=== PATIENT | male | born 1995 | race African-American/Black ===

== ENCOUNTER 2023-10-01 17:39 | Emergency (ER) | payer OTHER, SELFPAY ==
[2023-10-01 17:52] VITALS: BP 129/98; PULSE 102; RESP 20; TEMP 38.1; O2SAT 98; BMI 32.5
[2023-10-01 18:16] LABS: Bilirubin Urine NEGATIVE (NEGATIVE); Blood Urine NEGATIVE (NEGATIVE); Clarity Urine CLEAR (CLEAR); Color Urine LT. YELLOW (YELLOW); Glucose Urine UA NEGATIVE (NEGATIVE); Ketones Urine NEGATIVE (NEGATIVE); Leukocyte Esterase Urine NEGATIVE (NEGATIVE); Nitrite Urine NEGATIVE (NEGATIVE); Protein Urine NEGATIVE (NEG/TRACE); Specific Gravity Urine 1.025 (1.005-1.025); Urobilinogen Urine 0.2 EU/dL (0.2-1.0)
[2023-10-01 18:17] LABS: Urine Microscopic Indicated NO
[2023-10-01 18:19] LABS: Internal Control Within Normal Limits; Strep A Antigen Screen Negative
[2023-10-01 18:25] LABS: SARS-CoV-2 Ag NEGATIVE (NEGATIVE)
[2023-10-01 19:55] VITALS: BP 149/88; PULSE 91; RESP 16; TEMP 37.8; O2SAT 98
--- NOTE | 2023-10-01 19:58 | CT_ITS ---
The [address] [address] Patient Name: HILTON MARTEL MRN: [id number] date: 1995 Sex: M Assigned Patient Location: ER Current Patient Location: Accession/Order Number: [id number] Exam Date: 10/01/2023 20:21 Report Date: 10/01/2023 21:07 At the request of: ANA CRISTINA WOODSON Procedure: CT abdomen pelvis wo con EXAMINATION: CT ABDOMEN AND PELVIS WITHOUT IV CONTRAST CLINICAL HISTORY: Right flank pain, Bodyaches and chills TECHNIQUE: Non-IV contrast imaging of the abdomen and pelvis was performed using standard technique, scanning from just above the dome of the diaphragm to the symphysis pubis. Unenhanced imaging is limited for the evaluation of some intra-abdominal and pelvic pathology. All CT scans at this facility use dose modulation, iterative reconstruction, and/or weight based dosing when appropriate to reduce radiation dose to as low as reasonably achievable. Contrast: IV: None COMPARISON: None. RESULT: Abdomen / Pelvis: Liver: Unremarkable. Biliary: The gallbladder is unremarkable. Spleen: No splenomegaly. Pancreas: Unremarkable. Adrenals: Normal. Kidneys: No calculus, hydronephrosis or finding to suggest a cyst or mass in the unenhanced kidney. GI Tract: No bowel dilation. Normal appendix. No diverticulosis. Lymph Nodes: No lymphadenopathy. Mesentery/peritoneum: No ascites. Retroperitoneum: No mass. Vasculature: No abdominal aortic or iliac artery aneurysm. Pelvis: No mass or ascites. Urinary bladder is unremarkable. Bones/Soft Tissues: Small focus of gas within the right iliacus (series 3 image 102). No soft tissue stranding or drainable fluid collection. Lower thorax: Unremarkable. CT/CT abdomen pelvis wo con IMPRESSION: No acute findings in the abdomen and pelvis. Electronically authenticated by: JOSE MARIA LYLE Date: 10/01/2023 21:07
--- NOTE | 2023-10-01 20:07 | ED.GENADUL1 ---
HPI - General Adult General Chief complaint: Upper Respiratory Infection Stated complaint: Upper Respiratory Infection Time Seen by Provider: 10/01/23 19:53 Source: patient Mode of arrival: walk-in Limitations: no limitations History of Present Illness HPI narrative: 28 year old male presents to the ED for sinus congestion/cough, body aches, fatigue, sore throat. Onset was 2-3 days ago. He presented febrile. Reports concern for Covid-19. Also reports penile itching with urination and penile discharge. Reports suprapubic discomfort, intermittent right flank pain. He is concerned about a UTI and kidney stones. Denies penile lesions, erythema. Related Data Home Medications Medication Instructions Recorded Confirmed No Known Home Medications 10/01/23 10/01/23 Allergies Allergy/AdvReac Type Severity Reaction Status Date / Time No Known Drug Allergies Allergy Verified 10/01/23 17:51 Review of Systems ROS Constitutional Reports: fever and chills Ears, nose, mouth, and throat Reports: throat pain; Denies: neck pain or throat swelling Cardiovascular Denies: chest pain Respiratory Reports: cough; Denies: shortness of breath or wheezing Gastrointestinal Reports: abdominal pain and nausea; Denies: vomiting or diarrhea Genitourinary Reports: painful urination, genital pain and penile discharge; Denies: urinary frequency, urinary urgency, blood in urine, genital lesion, testicular pain, scrotal swelling or difficulty urinating Musculoskeletal Reports: back pain; Denies: neck pain Integumentary/Breast Denies: rash Neurological Reports: headache; Denies: numbness in extremities, weakness in extremities or dizziness PFSH PFSH Social History Smoking status: Heavy tobacco smoker Exam Constitutional Vital Signs, click to edit/add: Last Vital Signs Temp 100.1 F 10/01/23 19:55 Pulse 91 H 10/01/23 19:55 Resp 16 10/01/23 19:55 BP 149/88 H 10/01/23 19:55 Pulse Ox 98 10/01/23 19:55 Common normals: no apparent distress and oriented x3 General appearance: cooperative HENMT Face and sinus: normal facial exam Nose: external nose normal External ear: external ears normal Mouth: oral and palatal mucosa normal, lip normal and tongue normal; no drooling Throat: posterior oropharynx normal and uvula midline Eye Common normals: conjunctivae normal and no scleral icterus Neck & C-Spine Common normals: supple Chest Common normals: inspection of chest normal Chest: symmetrical chest wall rise Respiratory Common normals: normal respiratory effort Effort & inspection: able to speak in complete sentences and symmetric chest movement Auscultation: clear to auscultation bilaterally Cardio Common normals: regular rate and regular rhythm GI Common normals: Normal to inspection, nondistended, normoactive bowel sounds present and soft to palpation Palpation: tender Details: suprapubic Neuro Common normals: oriented x3 and CN's II-XII intact bilaterally Sensorium/orientation: awake Speech: speech normal Gait (neuro): normal gait Course Vital Signs Vital signs: Vital Signs Temperature 100.5 F H 10/01/23 17:52 Pulse Rate 102 H 10/01/23 17:52 Respiratory Rate 20 10/01/23 17:52 Blood Pressure 129/98 H 10/01/23 17:52 Pulse Oximetry 98 10/01/23 17:52 Temperature 100.1 F 10/01/23 19:55 Pulse Rate 91 H 10/01/23 19:55 Respiratory Rate 16 10/01/23 19:55 Blood Pressure 149/88 H 10/01/23 19:55 Pulse Oximetry 98 10/01/23 19:55 Medical Decision Making MDM Narrative Medical decision making narrative: He tested negative for Covid-19, influenza, and strep. Imaging was negative for acute findings. Urinalysis was unremarkable. Uriprobes were pending. Follow up with pcp for a recheck, further evaluation and treatment. Return precautions were discussed. Motrin and/or Tylenol as directed for pain. Medical Records Medical records reviewed: Yes I reviewed the patient's medical records Lab Data Lab results reviewed: Yes I reviewed the patient's lab results Labs: Lab Results 10/01/23 10/01/23 Range/Units 18:06 20:15 Urine Color Lt. yellow (YELLOW) Urine Clarity Clear (CLEAR) Urine pH 6.0 (5.0-9.0) Ur Specific [place] 1.025 (1.005-1.025) Urine Protein Negative (NEG/TRACE) mg/dL Urine Glucose (UA) Negative (NEGATIVE) mg/dL Urine Ketones Negative (NEGATIVE) mg/dL Urine Occult Blood Negative (NEGATIVE) Urine Nitrite Negative (NEGATIVE) Urine Bilirubin Negative (NEGATIVE) Urine Urobilinogen 0.2 (0.2-1.0) EU/dL Ur Leukocyte Esterase Negative (NEGATIVE) SARS-CoV-2 (PCR) Negative (NEGATIVE) Influenza Type A Ag Negative Influenza Type B Ag Negative Streptococcus Screen Negative Imaging Data CT scan - abdomen: Attestation: I have reviewed the pertinent imaging results. Radiologist's impression: Procedure: CT abdomen pelvis wo con EXAMINATION: CT ABDOMEN AND PELVIS WITHOUT IV CONTRAST CLINICAL HISTORY: Right flank pain, Bodyaches and chills TECHNIQUE: Non-IV contrast imaging of the abdomen and pelvis was performed using standard technique, scanning from just above the dome of the diaphragm to the symphysis pubis. Unenhanced imaging is limited for the evaluation of some intra-abdominal and pelvic pathology. All CT scans at this facility use dose modulation, iterative reconstruction, and/or weight based dosing when appropriate to reduce radiation dose to as low as reasonably achievable. Contrast: IV: None COMPARISON: None. RESULT: Abdomen / Pelvis: Liver: Unremarkable. Biliary: The gallbladder is unremarkable. Spleen: No splenomegaly. Pancreas: Unremarkable. Adrenals: Normal. Kidneys: No calculus, hydronephrosis or finding to suggest a cyst or mass in the unenhanced kidney. GI Tract: No bowel dilation. Normal appendix. No diverticulosis. Lymph Nodes: No lymphadenopathy. Mesentery/peritoneum: No ascites. Retroperitoneum: No mass. Vasculature: No abdominal aortic or iliac artery aneurysm. Pelvis: No mass or ascites. Urinary bladder is unremarkable. Bones/Soft Tissues: Small focus of gas within the right iliacus (series 3 image 102). No soft tissue stranding or drainable fluid collection. Lower thorax: Unremarkable. CT/CT abdomen pelvis wo con IMPRESSION: No acute findings in the abdomen and pelvis. Electronically authenticated by: JOSE MARIA LLYE Date: 10/01/2023 21:07 Discharge Plan Discharge Chief Complaint: Upper Respiratory Infection Clinical Impression: Discharge from penis, Upper respiratory infection, viral Patient Disposition: Home, Self-Care Time of Disposition Decision: 21:16 Condition: Good Mode of Transportation: Private Vehicle Prescriptions / Home Meds: No Action No Known Home Medications Instructions: Nonspecific Urethritis in Men (ED), Upper Respiratory Infection (ED), Viral Syndrome (ED) Stand Alone Forms: Portal Instructions Referrals: Physician,Non-Staff, MD [Primary Care Provider] - As soon as possible Discharge Date/Time: 10/01/23 21:32
[2023-10-01] MEDS: IBUPROFEN 400 MG TABLET 800 MG PO (20:13)
[2023-10-01] MEDS: ACETAMINOPHEN 500 MG TABLET 1000 MG PO (20:13)
[2023-10-01] MEDS: ONDANSETRON 4 MG RAPDIS TABLET SL (20:14)
[2023-10-01 20:43] LABS: Influenza Virus A Antigen Negative; Influenza Virus B Antigen Negative; Internal Control Within Normal Limits
[2023-10-02 21:33] LABS: SARS-CoV-2 NAA INCONCLUSIVE (NOT DETECTE)
[2023-10-06 16:08] LABS: Neisseria gonorrhoeae, NAA Negative (Negative)
== END 2023-10-01 21:32 | disposition home or self-care (01) ==
PROVIDERS: Nurse Practitioner Family; Emergency Provider Emergency Medicine
DX: R36.9 Urethral discharge, unspecified (principal); J06.9 Acute upper respiratory infection, unspecified; F17.210 Nicotine dependence, cigarettes, uncomplicated; Z20.822 Contact with and (suspected) exposure to COVID-19
CPT/HCPCS: 74176; 81003; 87070; 87491; 87591; 87635; 87804; 87811; 87880; 99285

== ENCOUNTER 2024-02-17 19:38 | Emergency (ER) | payer OTHER, SELFPAY ==
[2024-02-17 19:41] VITALS: BP 150/104; PULSE 94; TEMP 36.6; O2SAT 100; BMI 33.2
--- NOTE | 2024-02-17 19:48 | ECG_ITS ---
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
--- NOTE | 2024-02-17 19:57 | XR_ITS ---
The [address] [address] Patient Name: HILTON MARTEL MRN: [id number] date: 1995 Sex: M Assigned Patient Location: ER Current Patient Location: ER Accession/Order Number: [id number] Exam Date: 02/17/2024 20:02 Report Date: 02/17/2024 20:52 At the request of: ALESSANDRO VERA Procedure: XR chest 2V EXAM: XR chest 2V HISTORY: thoracic pain COMPARISON: None. TECHNIQUE: PA, lateral chest x-ray. FINDINGS: Clear lungs without infiltrate or abnormal density. Normal heart size and mediastinal contour. No pleural effusion or pneumothorax. No displaced fracture XR/XR chest 2V IMPRESSION: Negative chest x-ray, no acute findings. Electronically authenticated by: MARY BARRIOS Date: 02/17/2024 20:52
--- NOTE | 2024-02-17 19:58 | ED.GENADUL1 ---
Documented by User: ZARA Dugan 02/17/24 20:58 HPI HPI - General Adult General Chief complaint: Back Pain/Injury Stated complaint: Back Pain Time Seen by Provider: 02/17/24 19:39 Source: patient Mode of arrival: walk-in Limitations: no limitations History of Present Illness HPI narrative: Patient is a 28-year-old male who presents to the emergency department for the evaluation of thoracic pain under the scapula that has been present for over a year intermittently. He states he was looking on the Internet and wanted to make sure that his symptoms are not due to a cardiac issue. He has had no fevers, cough, congestion, hemoptysis. He denies any extremity swelling, recent surgeries or procedures. He has no history of DVT or PE. He is a regular smoker. 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 He states pain is under the left scapula and the left thoracic chest, worse when he moves from [id number]-itna or takes a deep breath. No medications taken prior to arrival. Related Data Previous Rx's ?Medication ?Instructions ?Recorded ketorolac 10 mg tablet 10 mg PO TID PRN pain #10 tabs 02/17/24 methocarbamol 750 mg tablet 750 mg PO TID PRN pain #20 tabs 02/17/24 Allergies Allergy/AdvReac Type Severity Reaction Status Date / Time No Known Drug Allergies Allergy Verified 02/17/24 19:46 Opioid HPI Opioid Management Most Recent Opioid Data: No Data to Display Review of Systems ROS Constitutional Denies: fever or chills Ears, nose, mouth, and throat Denies: throat pain Cardiovascular Denies: chest pain Respiratory Denies: shortness of breath or cough Gastrointestinal Denies: nausea or vomiting Musculoskeletal Denies: back pain Integumentary/Breast Denies: rash Neurological Denies: headache Hematologic/Lymphatic Denies: easy bruising or easy bleeding PFSH PFS Social History Smoking status: Heavy tobacco smoker Exam Narrative Exam Narrative: Gen.: Awake, alert, in no distress Head: Normocephalic, atraumatic ENT: Moist mucous membranes Respiratory: No respiratory distress, lungs clear bilaterally Cardio: Regular rate and rhythm Back: Mild tenderness adjacent to the left thoracic spine and inferior left scapula. No rash, color change. Pain with movement of the chest wall and deep breathing Extremities: Moves extremities equally, no pedal edema Psych: Normal mood and affect Neuro: No focal neuro deficit Skin: Warm, dry, intact Constitutional Vital Signs, click to edit/add: Last Vital Signs Temp 98 F 02/17/24 19:41 Pulse 88 02/17/24 20:14 Resp 18 02/17/24 20:14 BP 143/97 H 02/17/24 20:14 Pulse Ox 100 02/17/24 20:14 O2 Del Method Room Air 02/17/24 20:14 Course Vital Signs Vital signs: Vital Signs Temperature 98 F 02/17/24 19:41 Pulse Rate 94 H 02/17/24 19:41 Respiratory Rate 18 02/17/24 19:41 Blood Pressure 150/104 H 02/17/24 19:41 Pulse Oximetry 100 02/17/24 19:41 Oxygen Delivery Method Room Air 02/17/24 19:41 Temperature 98 F 02/17/24 19:41 Pulse Rate 88 02/17/24 20:14 Respiratory Rate 18 02/17/24 20:14 Blood Pressure 143/97 H 02/17/24 20:14 Pulse Oximetry 100 02/17/24 20:14 Oxygen Delivery Method Room Air 02/17/24 20:14 Medical Decision Making MDM Narrative Medical decision making narrative: EKG is unremarkable, patient with thoracic/scapular pain. He has no PE risk factors and a PERC score of 0. Patient sent for two-view chest x-ray with no acute cardiopulmonary changes. He is hemodynamically stable with normal vital signs, no vanessa chest pain or other worrisome risk factors. He will be treated for thoracic pain with NSAIDs and muscle relaxants to follow-up with PCP. He was given a referral for local primary care providers in the area. Return to the ER if symptoms change or worsen Medical Records Medical records reviewed: Yes I reviewed the patient's medical records Imaging Data Chest x-ray: Attestation: I have reviewed the pertinent imaging results. Radiologist's impression: ITS Impressions Chest X-Ray 02/17/24 19:57 IMPRESSION: Negative chest x-ray, no acute findings. Electronically authenticated by: MARY BARRIOS Date: 02/17/2024 20:52 ECG Data Attestation: I personally reviewed and interpreted this ECG as follows: (Normal sinus rhythm at a rate of 90, no acute ST elevation or ectopy. EKG reviewed by attending physician) Discharge Plan Discharge Stand Alone Forms: Portal Instructions Chief Complaint: Back Pain/Injury Clinical Impression: Acute thoracic back pain Patient Disposition: Home, Self-Care Time of Disposition Decision: 20:57 Condition: Good Prescriptions / Home Meds: New ketorolac 10 mg tablet 10 mg PO TID PRN (Reason: pain) Qty: 10 0RF methocarbamol 750 mg tablet 750 mg PO TID PRN (Reason: pain) Qty: 20 0RF Print Language: Mongolian Instructions: Thoracic Pain (ED) Referrals: Physician,Non-Staff, MD [Primary Care Provider] - 1 week Discharge Date/Time: 02/17/24 21:07 Documented by User: Gerry Sainz 02/17/24 21:21 HPI HPI - General Adult General Chief complaint: Back Pain/Injury Stated complaint: Back Pain Time Seen by Provider: 02/17/24 19:39 Related Data Previous Rx's ?Medication ?Instructions ?Recorded ketorolac 10 mg tablet 10 mg PO TID PRN pain #10 tabs 02/17/24 methocarbamol 750 mg tablet 750 mg PO TID PRN pain #20 tabs 02/17/24 Allergies Allergy/AdvReac Type Severity Reaction Status Date / Time No Known Drug Allergies Allergy Verified 02/17/24 19:46 Opioid HPI Opioid Management Most Recent Opioid Data: No Data to Display PFSH PFSH Social History Smoking status: Heavy tobacco smoker Exam Constitutional Vital Signs, click to edit/add: Last Vital Signs Temp 98 F 02/17/24 19:41 Pulse 88 02/17/24 20:14 Resp 18 02/17/24 20:14 BP 143/97 H 02/17/24 20:14 Pulse Ox 100 02/17/24 20:14 O2 Del Method Room Air 02/17/24 20:14 Course Vital Signs Vital signs: Vital Signs Temperature 98 F 02/17/24 19:41 Pulse Rate 94 H 02/17/24 19:41 Respiratory Rate 18 02/17/24 19:41 Blood Pressure 150/104 H 02/17/24 19:41 Pulse Oximetry 100 02/17/24 19:41 Oxygen Delivery Method Room Air 02/17/24 19:41 Temperature 98 F 02/17/24 19:41 Pulse Rate 88 02/17/24 20:14 Respiratory Rate 18 02/17/24 20:14 Blood Pressure 143/97 H 02/17/24 20:14 Pulse Oximetry 100 02/17/24 20:14 Oxygen Delivery Method Room Air 02/17/24 20:14 Medical Decision Making MDM Narrative Medical decision making narrative: EKG is unremarkable, patient with thoracic/scapular pain. He has no PE risk factors and a PERC score of 0. Patient sent for two-view chest x-ray with no acute cardiopulmonary changes. He is hemodynamically stable with normal vital signs, no vanessa chest pain or other worrisome risk factors. He will be treated for thoracic pain with NSAIDs and muscle relaxants to follow-up with PCP. He was given a referral for local primary care providers in the area. Return to the ER if symptoms change or worsen For this patient encounter I reviewed the mid-level provider?s documentation, medical decision-making and treatment plan, and I personally spent time with this patient. Shared APC visit, physician attestation: [id number]: The visit was performed by both a physician and an APC. I performed all aspects of MDM as documented. - Wilfrido, DO Imaging Data Chest x-ray: Radiologist's impression: ITS Impressions Chest X-Ray 02/17/24 19:57 IMPRESSION: Negative chest x-ray, no acute findings. Electronically authenticated by: MARY BARRIOS Date: 02/17/2024 20:52 Discharge Plan Discharge Stand Alone Forms: Portal Instructions Chief Complaint: Back Pain/Injury Clinical Impression: Acute thoracic back pain Patient Disposition: Home, Self-Care Time of Disposition Decision: 20:57 Condition: Good Prescriptions / Home Meds: New ketorolac 10 mg tablet 10 mg PO TID PRN (Reason: pain) Qty: 10 0RF methocarbamol 750 mg tablet 750 mg PO TID PRN (Reason: pain) Qty: 20 0RF Print Language: Mongolian Instructions: Thoracic Pain (ED) Referrals: Physician,Non-Staff, MD [Primary Care Provider] - 1 week Discharge Date/Time: 02/17/24 21:07
[2024-02-17] MEDS: PREDNISONE 20 MG TABLET 60 MG PO (20:12)
[2024-02-17] MEDS: KETOROLAC TROMETHAMINE 10 MG TABLET PO (20:12)
[2024-02-17 20:14] VITALS: BP 143/97; PULSE 88; O2SAT 100
== END 2024-02-17 21:07 | disposition home or self-care (01) ==
PROVIDERS: Emergency Provider Emergency Medicine
DX: M54.6 Pain in thoracic spine (principal); F17.210 Nicotine dependence, cigarettes, uncomplicated
CPT/HCPCS: 71046; 93005; 99284

== ENCOUNTER 2024-05-21 12:20 | Emergency (ER) | payer OTHER, SELFPAY ==
[2024-05-21 12:41] VITALS: BP 125/94; PULSE 72; TEMP 36.9; O2SAT 99; BMI 33.2
[2024-05-21 13:23] LABS: Bilirubin Urine NEGATIVE (NEGATIVE); Blood Urine NEGATIVE (NEGATIVE); Clarity Urine CLEAR (CLEAR); Color Urine LT. YELLOW (YELLOW); Glucose Urine UA NEGATIVE (NEGATIVE); Ketones Urine NEGATIVE (NEGATIVE); Leukocyte Esterase Urine TRACE (NEGATIVE); Nitrite Urine NEGATIVE (NEGATIVE); Protein Urine NEGATIVE (NEG/TRACE); Specific Gravity Urine >=1.030 (1.005-1.025); Urobilinogen Urine 0.2 EU/dL (0.2-1.0)
[2024-05-21 13:24] LABS: Urine Microscopic Indicated YES
[2024-05-21 13:30] LABS: Bacteria Urine SMALL #/HPF (NONE SEEN); Crystals Seen? None Seen #/HPF (None Seen); Mucus Urine TRACE (NONE SEEN); RBC Urine 0-2 #/HPF (0-2); Squamous Epithelial Cell Urine FEW #/LPF (NONE/RARE)
[2024-05-21 13:31] LABS: Cast Seen? NONE SEEN #/LPF (NONE SEEN); Urine Culture Indicated YES
--- NOTE | 2024-05-21 15:12 | ED.GENADUL1 ---
HPI HPI - General Adult General Chief complaint: Urogenital-Male Stated complaint: UTI COMPLAINTS Time Seen by Provider: 05/21/24 12:48 Source: patient Mode of arrival: walk-in Limitations: no limitations History of Present Illness HPI narrative: The patient presented to us after a he started having some burning with urination and drainage, patient denies any abdominal pain nausea vomiting or any other concerns. He mentioned that he have only 1 partner and she does have history of UTI Patient denies any other complaints Related Data Previous Rx's ?Medication ?Instructions ?Recorded ketorolac 10 mg tablet 10 mg PO TID PRN pain #10 tabs 02/17/24 methocarbamol 750 mg tablet 750 mg PO TID PRN pain #20 tabs 02/17/24 doxycycline monohydrate 100 mg 100 mg PO BID 7 days #14 caps 05/21/24 capsule Allergies Allergy/AdvReac Type Severity Reaction Status Date / Time No Known Drug Allergies Allergy Verified 05/21/24 12:40 Opioid HPI Opioid Management Most Recent Opioid Data: No Data to Display Review of Systems ROS Status of ROS 10 or more systems reviewed and unremarkable except as noted in history and below PFSH PFSH Social History Smoking status: Heavy tobacco smoker Exam Constitutional Vital Signs, click to edit/add: Last Vital Signs Temp 98.5 F 05/21/24 12:41 Pulse 72 05/21/24 12:41 Resp 14 05/21/24 12:41 BP 125/94 H 05/21/24 12:41 Pulse Ox 99 05/21/24 12:41 O2 Del Method Room Air 05/21/24 12:41 Course Vital Signs Vital signs: Vital Signs Temperature 98.5 F 05/21/24 12:41 Pulse Rate 72 05/21/24 12:41 Respiratory Rate 14 05/21/24 12:41 Blood Pressure 125/94 H 05/21/24 12:41 Pulse Oximetry 99 05/21/24 12:41 Oxygen Delivery Method Room Air 05/21/24 12:41 Temperature 98.5 F 05/21/24 12:41 Pulse Rate 72 05/21/24 12:41 Respiratory Rate 14 05/21/24 12:41 Blood Pressure 125/94 H 05/21/24 12:41 Pulse Oximetry 99 05/21/24 12:41 Oxygen Delivery Method Room Air 05/21/24 12:41 Medical Decision Making [facility] Narrative Medical decision making narrative: With the patient presentation we we will treat him for possible urethritis Urine shows UTI and the urine was sent for chlamydia and gonorrhea testing Patient was discharged with doxycycline for the next 7 days The patient is to follow up with primary care physician in next 2-3 days or to return to the emergency department should any of the signs or symptoms worsen or new symptoms develop. The patient agrees with the following Diagnosis and Treatment plan and the patient will be discharged home. Lab Data Labs: Lab Results 05/21/24 Range/Units 12:50 Urine Color Lt. yellow (YELLOW) Urine Clarity Clear (CLEAR) Urine pH 6.0 (5.0-9.0) Ur Specific [place] >=1.030 A (1.005-1.025) Urine Protein Negative (NEG/TRACE) mg/dL Urine Glucose (UA) Negative (NEGATIVE) mg/dL Urine Ketones Negative (NEGATIVE) mg/dL Urine Occult Blood Negative (NEGATIVE) Urine Nitrite Negative (NEGATIVE) Urine Bilirubin Negative (NEGATIVE) Urine Urobilinogen 0.2 (0.2-1.0) EU/dL Ur Leukocyte Esterase Trace A (NEGATIVE) Urine RBC 0-2 (0-2) #/HPF Urine WBC 10-20 A (NONE SEEN) #/HPF Ur Squamous Epith Cells Few A (NONE/RARE) #/LPF Urine Crystals None seen (None Seen) #/HPF Urine Bacteria Small A (NONE SEEN) #/HPF Urine Casts None seen (NONE SEEN) #/LPF Urine Mucus Trace A (NONE SEEN) Ur Culture Indicated? Yes Discharge Plan Discharge Stand Alone Forms: Portal Instructions Chief Complaint: Urogenital-Male Clinical Impression: Urethritis Patient Disposition: Home, Self-Care Time of Disposition Decision: 13:48 Condition: Good Prescriptions / Home Meds: New doxycycline monohydrate 100 mg capsule 100 mg PO BID 7 Days Qty: 14 0RF No Action ketorolac 10 mg tablet 10 mg PO TID PRN (Reason: pain) Qty: 10 0RF methocarbamol 750 mg tablet 750 mg PO TID PRN (Reason: pain) Qty: 20 0RF Print Language: Congolese Instructions: Urinary Tract Infection in Men (DC) Referrals: Physician,Non-Staff, MD [Primary Care Provider] - 1 week Discharge Date/Time: 05/21/24 14:42
[2024-05-24 07:07] LABS: Neisseria gonorrhoeae, NAA Negative (Negative)
== END 2024-05-21 14:42 | disposition home or self-care (01) ==
PROVIDERS: Emergency Provider Emergency Medicine
DX: N34.2 Other urethritis (principal); Z87.440 Personal history of urinary (tract) infections; F17.200 Nicotine dependence, unspecified, uncomplicated
CPT/HCPCS: 36415; 81001; 87086; 87491; 87591; 99283

== ENCOUNTER 2024-06-16 04:58 | Emergency (ER) | payer OTHER, SELFPAY ==
[2024-06-16] VITALS (15 sets, daily range): BP systolic 130–180; BP diastolic 73–120; PULSE 68–81; TEMP 36.8; O2SAT 98–100; BMI 34.6
--- OUTSIDE RECORDS SUMMARY | 2024-06-16 05:09 | XMS_ITS | CCD ---
Author Organization [facility] Care Team Providers Care Esl Instructor Name Role Phone Family Health, Services Primary Care Provider JUAREZ Singleton Emergency Provider MD Emy Hall Attending Provider DO Quan Neal II Attending Provider NO FAMILY, PHYSICIAN Primary Care Provider Unava ilable ALISA Nath Emergency Provider DO Quan Neal II Attending Provider [facility] Primary Care Provider DO Anthony Hoffman Emergency Provider DO Alverto Nath Emergency Provider NO FAMILY, PHYSICIAN Primary Care Provider Unava ilable Gregg Provider Emergency Provider Unavailable NO FAMILY, PHYSICIAN Primary Care Provider Unava ilable ALISA Nath Emergency Provider [phone] NO FAMILY, PHYSICIAN Primary Care Provider Unava ilable DO Anthony Hoffman Emergency Provider MD Carlito Jama Emergency Provider [phone] NO FAMILY, PHYSICIAN Primary Care Provider Unava ilable DO Anthony Hoffman Emergency Provider DO Romel Hudson Emergency Provider [phone] NO FAMILY, PHYSICIAN Primary Care Provider Unava ilable SRINI SingletonP-BC Sabiha Munoz Emergency Provider Silvio CORRALES Primary Care Physician Travis Valentine Attending Unavailable NO FAMILY, PHYSICIAN Primary Care Unavailable Mani Sabiha E Admitting Unavailable Sabiha Singleton Attending Unavailable NO FAMILY, PHYSICIAN Primary Care Unavailable Carlito Jama Admitting Unavailable Carlito Jama Attending Unavailable NO FAMILY, PHYSICIAN Primary Care Unavailable Anthony Hoffman Admitting Unavailable Anthony Hoffman Attending Unavailable Romel Hudson Admitting Unavailable Romel Hudson Attending Unavailable NO FAMILY, PHYSICIAN Primary Care Unavailable WALT ARREOLA Attending Unavailable Allergies Allergy Classification Reported Allergen(s) Allergy Type Date of Onset Reaction(s) Facility (1 source) No Known Medication Allergies; Translations: [No Known Medication Allergies] Propensity to adverse reactions (disorder) [facility] Repository Medications Current Medications Medication Drug Class(es) Dates Sig (Normalized) Sig (Original) Albuterol (Eqv-ProAir HFA) 90 mcg/inh inhalation aerosol (1 source) Start: 02-20-2024 take 2 puff(s) by inhalation every six hours Albuterol (Eqv-ProAir HFA) 90 mcg/inh inhalation aerosol 2 puff(s), Inhalation, q6hr Wheezing, 8.5 gm, Refill(s) 0, [facility]/pharmacy #[id number], 183, cm, 02/20/24 16:57:00 EDT, Height/Length Dosing, 119.3, kg, 02/20/24 16:57:00 EDT, Weight Dosing Start Date: 02/20/24 Status: Ordered doxycycline hyclate 100 mg oral capsule (20 sources) Tetracycline-clas s Drug Start: 12-01-2023 take 100 mg by mouth twice daily Doxycycline Hyclate Active 100 MG PO Twice daily 14 December 01, 2023 12:00am Start: 05-07-2022 End: 08-08-2022 take 100 mg by mouth twice daily Doxycycline Hyclate Discontinued 100 MG PO Twice daily 14 May 06, 2022 11:00pm August 08, 2022 11:26am Start: 11-03-2021 End: 11-06-2021 take 100 mg by mouth twice daily Doxycycline Hyclate Discontinued 100 MG PO Twice daily 20 Tad 25th, 2021 12:00am November 06, 2021 6:42pm Start: 12-02-2020 End: 12-16-2020 take 100 mg by mouth twice daily Doxycycline Hyclate Discontinued 100 MG PO Twice daily 14 7 December 02, 2020 12:00am December 16, 2020 5:49pm [place] (No Known Home Meds) (6 sources) Start: 06-26-2023 [place] (No Kn own Home Meds) Active June 26, 2023 12:00am Start: 08-08-2022 [place] (No Kn own Home Meds) Active August 08, 2022 12:00am Start: 12-10-2021 [place] (No Kn own Home Meds) Active December 10, 2021 4:07pm predniSONE 20 mg oral tablet (1 source) Start: 02-20-2024 End: 02-27-2024 take 3 tablets by mouth once daily predniSONE 20 mg Tab 60 mg = 3 tab(s), Oral, Daily, X 7 day(s), # 21 tab(s), Refills(s) 0, Pharmacy: [facility]/pharmacy #[id number], 183, cm, 02/20/24 16:57:00 EDT, Height/Length Dosing, 119.3, kg, 02/20/24 16:57:00 EDT, Weight Dosing Start Date: 02/20/24 Stop Date: 02/27/24 Status: Ordered Completed/Discontinued Medications Medication Drug Class(es) Dates Sig (Normalized) Sig (Original) amoxicillin 500 mg oral tablet (16 sources) Penicillin-class Antibacterial Start: 04-14-2023 End: 06-26-2023 take 500 mg by mouth three times daily Amoxicillin Discontinued 500 MG PO Three times daily April 13, 2023 11:00pm June 26, 2023 7:11am Start: 02-12-2021 End: 11-03-2021 take 875 mg by mouth every twelve hours Amoxicillin Discontinued 875 MG PO Q12H February 11, 2021 11:00pm November 03, 2021 4:12pm amoxicillin 875 mg / clavulanate 125 mg oral tablet (11 sources) Penicillin-class Antibacterial Start: 11-07-2021 End: 11-21-2021 take 1 tablet by mouth twice daily Amoxicillin-Pot Clavulanate (Augmentin) 875-125 mg tablet Discontinued 1 TAB PO Twice daily November 07, 2021 12:00am November 21, 2021 11:17am cephalexin 500 mg oral capsule (11 sources) Cephalosporin Antibacterial Start: 06-12-2019 End: 08-04-2019 take 2 capsules by mouth twice daily Cephalexin (Keflex) 500 mg Capsule Discontinued 1000 MG PO Twice daily June 11, 2019 11:00pm August 03, 2019 11:39pm cyclobenzaprine hydrochloride 10 mg oral tablet (11 sources) Muscle Relaxant Start: 09-16-2017 End: 09-02-2018 take 10 mg by mouth three times daily Cyclobenzaprine Discontinued 10 MG PO Three times daily September 16, 2017 12:00am September 01, 2018 11:51pm ibuprofen 800 mg oral tablet (5 sources) Nonsteroidal Anti-inflammatory Drug Start: 04-14-2023 End: 06-26-2023 take 800 mg by mouth three times daily Ibuprofen Discontinued 800 MG PO Three times daily April 13, 2023 11:00pm June 26, 2023 7:11am metroNIDAZOLE 500 mg oral tablet (9 sources) Nitroimidazole Antimicrobial Start: 05-07-2022 End: 08-08-2022 take 500 mg by mouth twice daily Metronidazole Discontinued 500 MG PO Twice daily 14 May 06, 2022 11:00pm August 08, 2022 11:26am naproxen 500 mg oral tablet (20 sources) Nonsteroidal Anti-inflammatory Drug Start: 12-16-2020 End: 12-18-2020 take 1 tablet by mouth twice daily Naproxen (Naprosyn) 500 mg tablet Discontinued 500 MG PO Twice daily December 16, 2020 12:00am December 18, 2020 12:03am Start: 09-16-2017 End: 09-02-2018 take 1 tablet by mouth twice daily at mealtime Naproxen (Naprosyn) 500 mg tablet Discontinued 500 MG PO Twice daily September 16, 2017 12:00am September 01, 2018 11:51pm administer with food or milk Problems Active Problems Problem Classification Problem Date Documented Date Episodic/Chronic Abdominal pain (20 sources) Right sided abdominal pain; Translations: [Unspecified abdominal pain] 12-10-2021 Episodic Acute and chronic tonsillitis (11 sources) Tonsillitis; Translations: [Acute tonsillitis, unspecified] 02-12-2021 Episodic Administrative/social admission (20 sources) Patient encounter status; Translations: [Persons encountering health services in other specified circumstances] 12-02-2020 Episodic Alcohol-related disorders (11 sources) Alcohol abuse; Translations: [Alcohol abuse, uncomplicated] 12-18-2020 Chronic Perez (7 sources) Partial thickness burn of left wrist; Translations: [Burn of second degree of left wrist, initial encounter] 08-08-2022 Episodic Disorders of teeth and jaw (10 sources) Dental caries; Translations: [Dental caries, unspecified] 04-14-2023 Episodic Headache; including migraine (11 sources) Headache; Translations: [Headache] 07-27-2020 Episodic Immunizations and screening for infectious disease (19 sources) At risk of sexually transmitted infection ; Translations: [Contact with and (suspected) exposure to infections with a predominantly sexual mode of transmission] 02-07-2022 Episodic Lymphadenitis (20 sources) Lymphadenitis; Translations: [Nonspecific lymphadenitis, unspecified] 11-03-2021 Episodic Other circulatory disease (14 sources) Elevated blood pressure; Translations: [Elevated blood-pressure reading, without diagnosis of hypertension] 07-27-2020 Episodic Other connective tissue disease (11 sources) Pain in right lower limb; Translations: [Pain in right leg] 12-16-2020 Episodic Other injuries and conditions due to external causes (11 sources) Puncture wound - injury; Translations: [Other injury of unspecified body region, initial encounter] 06-12-2019 Episodic Other injuries and conditions due to external causes (11 sources) Disorder of soft tissue of abdominal cavity; Translations: [Traumatic subcutaneous emphysema, initial encounter] 11-05-2021 Episodic Other liver diseases (20 sources) Enzyme level - finding; Translations: [Elevated transaminase measurement] 11-05-2021 Episodic Other nervous system disorders (3 sources) Paresthesia; Translations: [Paresthesia of skin] 06-26-2023 Episodic Other non-traumatic joint disorders (9 sources) Shoulder pain; Translations: [Pain in unspecified shoulder] 05-07-2022 Episodic Spondylosis; intervertebral disc disorders; other back problems (1 source) Backache; Translations: [Dorsalgia, unspecified] Onset: 02-20-2024 Episodic Sprains and strains (11 sources) Strain of thoracic region; Translations: [Strain of muscle and tendon of unspecified wall of thorax, initial encounter] 09-16-2017 Episodic Substance-related disorders (1 source) Smoker 09-11-2017 Chronic Comment on above: Added secondary to d ocumentation in Social History. Superficial injury; contusion (20 sources) Contusion of shoulder region; Translations: [Contusion of left shoulder, initial encounter] 08-12-2020 Episodic Unclassified (1 source) Cough, unspecified; Translations: [Cough, unspecified] Onset: 06-26-2023 Unclassified (1 source) Other specified disorders of teeth and supporting structures; Translations: [Other specified disorders of teeth and supporting structures] Onset: 04-14-2023 Urinary tract infections (11 sources) Urethritis; Translations: [Other urethritis] 08-04-2019 Episodic Viral infection (14 sources) Disease caused by 2019-nCoV; Translations: [COVID-19] 11-13-2021 Episodic Past or Other Problems Problem Classification Problem Date Documented Da te Episodic/Chronic Genitourinary symptoms and ill-defined conditions (2 sources) Discharge from penis; Translations: [Urethral discharge, unspecified] Onset: 12-01-2023 12-01-2023 Episodic Malaise and fatigue (1 source) Other fatigue; Translations: [Other fatigue] Onset: 06-26-2023 Episodic Other nervous system disorders (1 source) Anesthesia of skin; Translations: [Anesthesia of skin] Onset: 05-15-2023 Episodic Residual codes; unclassified (1 source) Pain, unspecified; Translations: [Pain, unspecified] Onset: 06-26-2023 Episodic Results Test Name Value Interpretation Reference Range Facility Consent for Treatmenton 02-08 Consent for Treatment [id number] Normal [facility] Discharge Instructionson Discharge Instructions [id number] Normal [facility] ED Clinical Summaryon 2023 ED Clinical Summary (Inserted Image. Omaira ble to display) [address] [address] ED Clinical Summary Person Information Name: LOUISA MARTEL Debra/[facility] Age: 28 Years : 1995 Sex: Male Language: Croatian PCP: Silvio CORRALES MD Marital Status: Single Visit Id: Visit Reason: Back pain; LEFT LUNG HURTS WHEN HE BREATHS Speciality: Acuity: 3 Enc Type: Emergency Med Service: Emergency Arrival: 02/20/2024 16:45:41 Discharge: 02/20/2024 17:38:47 LOS: 000 00:53 Checkin: 02/20/2024 16:45:41 Checkout: 02/20/2024 17:38:47 Dispo Type: Home (Routine DC) EVENTS: Event Name Event Status Request Date/Time Start Date/Time Complete Date/Time Arrive Complete 02/20/2024 16:45:41 02/20/2024 16:45:41 02/20/2024 16:45:41 Document Home Meds Request 02/20/2024 16:45:41 Triage Complete 02/20/2024 16:45:41 02/20/2024 16:57:43 02/20/2024 16:57:43 Bed Assign Complete 02/20/2024 16:53:41 02/20/2024 16:53:41 02/20/2024 16:53:41 Dr Exam Complete 02/20/2024 16:53:41 02/20/2024 17:01:36 02/20/2024 17:01:36 RN Exam Complete 02/20/2024 16:53:41 02/20/2024 17:09:02 02/20/2024 17:09:02 Registration Complete 02/20/2024 16:59:53 02/20/2024 16:59:53 02/20/2024 16:59:53 Reg Complete Request 02/20/2024 16:59:53 Reg Bed Request Complete 02/20/2024 16:59:53 02/20/2024 16:59:53 02/20/2024 16:59:53 Registration Request 02/20/2024 17:01:36 Dr Exam Complete 02/20/2024 17:09:02 02/20/2024 17:09:02 02/20/2024 17:09:02 Discharge Complete 02/20/2024 17:27:37 02/20/2024 17:38:52 02/20/2024 17:38:52 Transfer Complete 02/20/2024 17:38:53 02/20/2024 17:38:53 02/20/2024 17:38:53 ADDRESS: [facility] [facility] [place] [phone] PHYS DOC NOTES: MEDICAL INFORMATION: Prescriptions Given: New Medications [id number], [address] [place], [place] [id number], [phone] albuterol (Albuterol (Eqv-ProAir HFA) 90 mcg/inh inhalation aerosol) 2 Puffs Inhalation every 6 hours as needed Wheezing. Refills: 0. predniSONE (predniSONE 20 mg Tab) 3 Tablets By Mouth every day for 7 Days. Refills: 0. PATIENT EDUCATION INFORMATION: Instructions: Chronic Back Pain Follow up: With: Address: When: Silvio CORRALES [address] [place] [id number] Business (1) In 3 days 02/23/2024 DIAGNOSIS: Back pain Normal [facility] ED Note-Physicianon 02-20-20 ED Note-Physician Basic Information Time Seen: Shaheed Johnson PA-C 02/20/2024 17:01 Chief Complaint pt states diagnosed w pleurisy several days ago, has continued back pain and SOB w deep inspiration History of Present Illness 28-year-old male comes to the ED for evaluation of left-sided back pain. He states this been ongoing issue for the last year and a half. He complains of pain about the left thoracic area that radiates across to his chest. He states he recent started a new job with increased his activity has exacerbated his symptoms. He was seen at outside ED a couple of days ago had a negative chest x-ray was placed on Robaxin but continues to have discomfort. He denies any shortness of breath currently but does admit to shortness of breath at times. No cough or fever or chills. No nausea or vomiting. He has no PE risk factors. Review of Systems A 10 point review of systems is negative except as noted above. Medical and Surgical History: Reviewed and noted Social history: Lives at home Tobacco: Denies Physical Exam Vitals & Measurements T: 36.7 ?C(Oral) HR: 79(Peripheral) RR: 20 BP: 152/101 SpO2: 99% HT: 183 cm WT: 119.3 kg BMI: 35.62 Nurses notes and vital signs reviewed and patient is not hypoxic. General: The patient appears well, resting comfortably. Skin: Warm, dry. Head: Atraumatic. Neck: No JVD. Eye: Normal conjunctiva. Ears, Nose, Mouth, and Throat: Moist mucous membranes. Cardiovascular: Strong distal pulses. Chest wall: Respiratory: Respirations are nonlabored. Back: Normal range of motion. Musculoskeletal: Tenderness over the left trapezius region with muscular spasm. No ecchymosis or erythema. No bony tenderness. Gastrointestinal: Urological: Neurological: Awake and alert. No focal deficits. Follows commands. Psychiatric: Cooperative. Medical Decision Making Patient presents with essentially chronic back pain. He has had thoracic back pain for the last year. It has worsened recently due to increased physical activity with work. He has stable vital signs, no tachypnea or tachycardia. No chest pain. He is treated with steroids and is given a butyryl inhaler as he does describe some chest tightness/shortness of breath at times. He is discharged home PCP referral. Patient was encouraged to return to the ED if symptoms worsen or change. Assessment/Plan Back pain (M54.9: Dorsalgia, unspecified) Orders: albuterol, 2 puff(s), Inhalation, q6hr Wheezing, 8.5 gm, Refill(s) 0, [facility] #[id number], 183, cm, 02/20/24 16:57:00 EDT, Height/Length Dosing, 119.3, kg, 02/20/24 16:57:00 EDT, Weight Dosing predniSONE, 60 mg = 3 tab(s), Oral, Daily, X 7 day(s), # 21 tab(s), Refills(s) 0, Pharmacy: [facility] #[id number], 183, cm, 02/20/24 16:57:00 EDT, Height/Length Dosing, 119.3, kg, 02/20/24 16:57:00 EDT, Weight Dosing Disposition Plan Patient Discharge Condition Disposition: Discharged home Condition: Improved and stable Counseled: Patient and/or family were counseled to workup, results, treatment plan and follow-up recommendations Discharge Prescription List Prescriptions Albuterol (Eqv-ProAir HFA) 90 mcg/inh inhalation aerosol, 2 puff(s), Inhalation, q6hr, PRN predniSONE 20 mg Tab, 60 mg= 3 tab(s), Oral, Daily Follow-up With When Contact Information Silvio CORRALES In 3 days 02/23/[address] [place], [place] [id number] Business (1) Additional Instructions: Patient Education Chronic Back Pain Attestation I performed a substantive part of the MDM during the patient?s E/M visit. I personally made or approved the documented management plan and acknowledge its risk of complications. (Independent Interpretation) My (EKG/X-Ray/US/CT) interpretation as above. (Discussion) Management/test interpretation discussed with APC. This report was transcribed using voice recognition software. Every effort was made to ensure accuracy, however, inadvertently computerized intervention nurse mistakes may be present. Appropriate healthcare PPE was used in evaluating this patient. Problem List/Past Medical History Ongoing Smoker Historical No qualifying data Medications Inpatient No active inpatient medications Home Albuterol (Eqv-ProAir HFA) 90 mcg/inh inhalation aerosol, 2 puff(s), Inhalation, q6hr, PRN predniSONE 20 mg Tab, 60 mg= 3 tab(s), Oral, Daily Allergies No Known Medication Allergies Social History Alcohol - Medium Risk, 09/11/2017 Current, Liquor, 09/11/2017 Substance Abuse - Denies Substance Abuse, 09/11/2017 Tobacco - High Risk, 09/11/2017 Current Every Day Smoker, Cigarettes, Cigars, 09/11/2017 Lab Results No qualifying data available. Diagnostic Results No qualifying data available. [facility] Comment on above: Result Comment: Elec tronically Signed By: Shaheed Johnson PA-C\.br\Date and Time Signed: 02/20/24 17:32 EDT\.br\Electronically Co-Signed By: Travis Valentine DO\.br\Date and Time Co-Signed: 02/20/24 19:30 EDT ED Patient Education Noteon 02-20-2024 ED Patient Education Note Orthopedics Chronic Back Pain When back pain lasts longer than 3 months, it is called chronic back pain. The cause of your back pain may not be known. Some common causes include: ? Wear and tear (degenerative disease) of the bones, ligaments, or disks in your back. ? Inflammation and stiffness in your back (arthritis). People who have chronic back pain often go through certain periods in which the pain is more intense (flare-ups). Many people can learn to manage the pain with home care. Follow these instructions at home: Pay attention to any changes in your symptoms. Take these actions to help with your pain: Managing pain and stiffness ? If directed, apply ice to the painful area. Your health care provider may recommend applying ice during the first 24?48 hours after a flare-up begins. To do this: ? Put ice in a plastic bag. ? Place a towel between your skin and the bag. ? Leave the ice on for 20 minutes, 2?3 times per day. ? If directed, apply heat to the affected area as often as told by your health care provider. Use the heat source that your health care provider recommends, such as a moist heat pack or a heating pad. ? Place a towel between your skin and the heat source. ? Leave the heat on for 20?30 minutes. ? Remove the heat if your skin turns bright red. This is especially important if you are unable to feel pain, heat, or cold. You may have a greater risk of getting burned. ? Try soaking in a warm tub. Activity ? Avoid bending and other activities that make the problem worse. ? Maintain a proper position when standing or sitting: ? When standing, keep your upper back and neck straight, with your shoulders pulled back. Avoid slouching. ? When sitting, keep your back straight and relax your shoulders. Do not round your shoulders or pull them backward. ? Do not sit or chip applying machine tender one place for long periods of time. ? Take brief periods of rest throughout the day. This will reduce your pain. Resting in a lying or standing position is usually better than sitting to rest. ? When you are resting for longer periods, mix in some mild activity or stretching between periods of rest. This will help to prevent stiffness and pain. ? Get regular exercise. Ask your health care provider what activities are safe for you. ? Do not lift anything that is heavier than 10 lb (4.5 kg), or the limit that you are told, until your health care provider says that it is safe. Always use proper lifting technique, which includes: ? Bending your knees. ? Keeping the load close to your body. ? Avoiding twisting. ? Sleep on a firm mattress in a comfortable position. Try lying on your side with your knees slightly bent. If you lie on your back, put a pillow under your knees. Medicines ? Treatment may include medicines for pain and inflammation taken by mouth or applied to the skin, prescription pain medicine, or muscle relaxants. Take [id number]-[id number] and prescription medicines only as told by your health care provider. ? Ask your health care provider if the medicine prescribed to you: ? Requires you to avoid driving or using machinery. ? Can cause constipation. You may need to take these actions to prevent or treat constipation: ? Drink enough fluid to keep your urine pale yellow. ? Take uqcn-tud-czkiumd or prescription medicines. ? Eat foods that are high in fiber, such as beans, whole grains, and fresh fruits and vegetables. ? Limit foods that are high in fat and processed sugars, such as fried or sweet foods. General instructions ? Do not use any products that contain nicotine or tobacco, such as cigarettes, e-cigarettes, and chewing tobacco. If you need help quitting, ask your health care provider. ? Keep all follow-up visits as told by your health care provider. This is important. Contact a health care provider if: ? You have pain that is not relieved with rest or medicine. ? Your pain gets worse, or you have new pain. ? You have a high fever. ? You have rapid weight loss. ? You have trouble doing your normal activities. Get help right away if: ? You have weakness or numbness in one or both of your legs or feet. ? You have trouble controlling your bladder or your bowels. ? You have severe back pain and have any of the following: ? Nausea or vomiting. ? Pain in your abdomen. ? Shortness of breath or you faint. Summary ? Chronic back pain is back pain that lasts longer than 3 months. ? When a flare-up begins, apply ice to the painful area for the first 24?48 hours. ? Apply a moist heat pad or use a heating pad on the painful area as directed by your health care provider. ? When you are resting for longer periods, mix in some mild activity or stretching between periods of rest. This will help to prevent stiffness and pain. This information is not intended to replace advice given to you by your health (more content not included)... Normal [facility] ED Patient Summaryon 024 ED Patient Summary (Inserted Image. Omaira ble to display) [address] [address] Patient Discharge Instructions Person Information Name: LOUISA MARTEL Age: 28 Years Arrival Date: 02/20/2024 16:45:41 Discharge Diagnosis: Back pain Primary Care Physician: Silvio CORRALES MD Provider Information Primary Provider: Travis Valentine DO Advanced Senior Contracts Manager:Shaheed Johnson PA-C The exam and treatment you received in the Emergency Department were for an urgent problem and are not intended as complete care. It is important that you follow up with a doctor, nurse practitioner, or physician?s yard assistant for ongoing care. If your symptoms become worse or you do not improve as expected and you are unable to reach your usual health care provider, you should return to the Emergency Department. We are available 24 hours a day. LOUISA MARTEL has been given the following list of patient education materials, prescriptions and follow-up instructions: Follow-up Instructions: With: Address: When: Silvio CORRALES [address] [place], [place] [id number] [facility] (1) In 3 days 02/23/2024 In the event that this physician does not participate in your insurance network, please consult with your insurance company to find a nearby participating provider. Patient Education Materials: Chronic Back Pain A MESSAGE TO ALL PATIENTS REGARDING OPIOIDS PRESCRIPTION OPIOIDS: WHAT YOU NEED TO KNOW Prescription opioids can be used to help relieve ezfkwrhg-tm-xklrve pain and are often prescribed following a surgery or injury, or for certain health conditions. These medications can be an important part of the treatment but also come with serious risks. It is important to work with your healthcare provider to make sure you are getting the safest, most effective care. WHAT ARE THE RISKS AND SIDE EFFECTS OF OPIOID USE? Prescription opioids carry serious risks of addiction and overdose, especially with prolonged use. An opioid overdose, often marked by slowed breathing, can cause sudden . The use of prescription opioids can have a number of side effects as well, even when taken as directed: ? Tolerance?meaning you might need to take more of the medication for the same pain relief ? Physical dependence?meaning you have symptoms of withdrawal when a medication is stopped ? Increased sensitivity to pain ? Constipation ? Nausea, vomiting, and dry mouth ? Sleepiness and dizziness ? Confusion ? Depression ? Low levels of testosterone that can result in lower sex drive, energy, and strength ? Itching and sweating RISKS ARE GREATER WITH: ? History of drug misuse, substance use disorder, or overdose ? Mental health conditions (such as depression or anxiety) ? Sleep apnea ? Older age (65 years and older) ? Avoid alcohol while taking prescription opioids. Also, unless specifically advised by your health care provider, medications to avoid include: ? Benzodiazepines (such as Xanax or Valium) ? Muscle relaxants (such as Soma or Flexeril) ? Hypnotics (such as Ambien or Lunesta) ? Other prescription opioids KNOW YOUR OPTIONS Talk to your health care provider about ways to manage your pain that don?t involve prescription opioids. Some of these options may actually work better and have fewer risks and side effects. Options may include: ? Pain relievers such as acetaminophen, ibuprofen, and naproxen ? Some medication that are also used for depression or seizures ? Physical therapy and exercise ? Cognitive behavioral therapy, a psychological, goal-directed approach, in which patients learn how to modify physical, behavioral, and emotional triggers of pain and stress. IF YOU ARE PRESCRIBED OPIOIDS FOR PAIN: ? Never take opioids in greater amounts or more often than prescribed. ? Follow up with your primary health care provider. o Work together to create a plan on how to manage your pain. o Talk about ways to help manage your pain that don?t involve prescription opioids. o Talk about any and all concerns and side effects. ? Help prevent misuse and abuse o Never sell or share prescription opioids. o Never use another person?s prescription opioids. ? Store prescription opioids in a secure place and out of reach of others (this may include visitors, children, friends, and family). ? Safely dispose of unused prescription opioids: Find your community drug take-back program or your pharmacy mail-back program, or flush them down the toilet, following guidance from the Food and Drug Administration (www.fda.gov/Drugs/Resour cesForYou). ? Visit www.cdc.gov/drugoverdose to learn about the risks of opioids abuse and overdose. ? If you believe you may be struggling with addiction, tell your health intensive care ambulance paramedic and ask for guidance or call [facility]?S National Helpline at 1-930-895-HELP. v Source: [place] Department (more content not included)... Normal [facility] Chlamydia/GC/Trich NAAon Chlamydia Trachomotis, GIANLUCA Positive Critically abnormal Negative [facility] Comment on above: Order Comment: SOURC E OF SPECIMEN: urine Performed By: #### G CCHLAMTRI #### [facility] , Neisseria Gonorrhoeae, GIANLUCA Negative Normal Negative [facility] Comment on above: Order Comment: SOURC E OF SPECIMEN: urine Performed By: #### G CCHLAMTRI #### [facility] , Trichomonas GIANLUCA Negative Normal Negative [facility] Comment on above: Order Comment: SOURC E OF SPECIMEN: urine Result Comment: Perf ormed at: =G - [facility] [place] [address] [place], [place] [id number] Mallet Cutter: Shanda Quan MD, Phone: [phone] PERFORMED BY: [facility] [address] [place] [address] PATHOLOGIST WOOD TILE INSTALLER AILIN SNYDER M.D. Performed By: #### G CCHLAMTRI #### [facility] , COVID CepheidOrdered By: Katherine Hudson on 06-26-2023 SARS-CoV-2 (COVID-19) Ab IA Ql Negative Negative [facility] Comment on above: This is a duplicate Cepheid Xpert Xpress CoV-2/Flu/RSV Plus RNA by RT-PCR result to be used for statistical tracking purpose only. SARS-CoV-2 (COVID-19) RNA GIANLUCA+probe Ql (Unsp spec) [facility] COVID-19 / Flu A/B / RSV PCR on 06-26-2023 SARS-CoV-2 (COVID-19) RNA GIANLUCA+probe Ql (Unsp spec) COVID-19 Cepheid Result Negative for SARS-CoV-2 RNA by RT-PCR Flu A Cepheid Result Negative for Flu A RNA by RT-PCR Flu B Cepheid Result Negative for Flu B RNA by RT-PCR RSV Cepheid Result Negative for RSV RNA by RT-PCR COVID19 Blank Space ---- Reference: Negative COVID19 Blank Space ---- Cepheid Disclaimer The Cepheid Xpert Xpress CoV-2/Flu/RSV Plus has Cepheid Disclaimer not been FDA cleared or approved; this test has Cepheid Disclaimer been authorized by FDA under an EUA for use by Cepheid Disclaimer authorized laboratories; this test has been Cepheid Disclaimer authorized only for the simultaneous qualitative Cepheid Disclaimer detection and differentiation of nucleic acids from Cepheid Disclaimer SARS-CoV-2, influenza A, influenza B, and Cepheid Disclaimer respiratory syncytial virus (RSV), and not for any Cepheid Disclaimer other viruses or pathogens; and this test is only Cepheid Disclaimer authorized for the duration of the declaration that Cepheid Disclaimer circumstances exist justifying the authorization of Cepheid Disclaimer emergency use of in vitro diagnostic tests for Cepheid Disclaimer detection and/or diagnosis of COVID-19 under Cepheid Disclaimer Section 564(b)(1) of the Act, 21 U.S.C. 360bbb- Cepheid Disclaimer 3(b)(1), unless the authorization is terminated or Cepheid Disclaimer revoked sooner. PERFORMED BY: [facility] [place] [address] PATHOLOGIST WOOD TILE INSTALLER AILIN SNYDER M.D. Normal [facility] Comment on above: Performed By: #### C OVID19 FLU RSV, CEPHEID NEG #### [address] Cepheid COVID PCR Negativeon 06-26-2023 SARS-CoV-2 (COVID-19) RNA GIANLUCA+probe Ql (Unsp spec) Negative Normal Negative [facility] Comment on above: Result Comment: This is a duplicate Cepheid Xpert Xpress CoV-2/Flu/RSV Plus RNA by RT-PCR result to be used for statistical tracking purpose only. PERFORMED BY: [place] [address] PATHOLOGIST WOOD TILE INSTALLER AILIN SNYDER M.D. Performed By: #### C OVID19 FLU RSV, CEPHEID NEG #### [address] ECG 12 lead ECGon 06-26-2023 ECG 12 lead ECG [facility] [place] [address] Electrocardiograph Report Signed Patient: Louisa Martel MR#: [id number] : 1995 Acct:[id number] Age/Sex: 28 / M ADM Date: 06/26/23 Loc: ER Room: Type: [facility] ER Attending Dr: Ordering Provider: Romel Hudson DO Date of Service: 06/26/23 ECG/ECG 12 lead ECG: Dizziness Copies to: Test Reason : Blood Pressure : / mmHG Vent. Rate : 080 BPM Atrial Rate : 080 BPM P-R Int : 134 ms QRS Dur : 080 ms QT Int : 370 ms P-R-T Axes : 061 008 -03 degrees QTc Int : 426 ms Normal sinus rhythm Confirmed by Romel HUDSON DO ([id number]) on 06/26/2023 11:37:42 AM Referred By: Electronically Signed By:Romel HUDSON DO Transcribed By: MUS Signed By Romel Hudson DO 0 06/26/23 1137 Normal [facility] XR chest 2V*on 06-26-2023 XR chest 2V* [facility] [place] [address] XRay Report Signed Patient: Louisa Martel MR#: [id number] : 1995 Acct:[id number] Age/Sex: 28 / M ADM Date: 06/26/23 Loc: ER Room: Type: [facility] ER Attending Dr: Copies to: Romel Hudson DO Ordering Provider: Romel Hudson DO Date of Service: 06/26/23 XR/XR chest 2V*: Dizziness PA AND LATERAL CHEST: CLINICAL HISTORY: Cough, fever, dizziness and rhinorrhea COMPARISON: CT 11/06/2021 There is no focal parenchymal consolidation, effusion or pneumothorax. The cardiac, hilar and mediastinal silhouettes are within normal limits. There is no vascular congestion. The visualized bony thorax is intact. XR/XR chest 2V* IMPRESSION: NO ACUTE CARDIOPULMONARY ABNORMALITY. Impression dictated by: Dana Butcher M.D.06/26/2023 8:54 AM Dictation Location: [place] [address] Transcribed By: [facility] 06/26/23 0854 Dictated By: Dana Butcher MD 06/26/23 0853 Signed By: 06/26/23 0854 Normal [facility] Urine culture routineOrdered By: Alverto Nath on 05-10-2022 Bacteria identified Cx Nom (U) No Growth 2 Days [facility] Automated erythrocytes count in urine sediment (number/area)Ordered By: Alverto Nath on 05-08-2022 RBC Auto (Urine sed) [#/Area] None seen [HPF] 0-4 [facility] Automated leukocytes count i n urine sediment (number/area)Ordered By: Alverto Nath on 05-08-2022 WBC Auto (Urine sed) [#/Area] 10-19 [HPF] 0-4 [facility] Bilirubin Test strip Ql (U)O rdered By: Alverto Nath on 05-08-2022 Bilirubin Ql (U) Negative Negative [facility] Color Auto (U)Ordered By: Mike Nath on 05-08-2022 Color (U) Yellow Yellow [facility] Ketones Auto test strip (U) [Mass/Vol]Ordered By: Alverto Nath on 05-08-2022 Ketones (U) [Mass/Vol] Trace Negative [facility] Laboratory - UrinalysisOrder ed By: Alverto Nath on 05-08-2022 Hyaline casts LM Ql (Urine sed) 0-8 [LPF] 0-8 [facility] Nitrite Test strip Ql (U)Ord ered By: Alverto Nath on 05-08-2022 Nitrite Ql (U) Negative Negative [facility] Protein Auto test strip (U) [Mass/Vol]Ordered By: Alverto Nath on 05-08-2022 Protein (U) [Mass/Vol] Negative Negative [facility] Specific gravity Auto test s trip (U) [Rel density]Ordered By: Alverto Nath on 05-08-2022 Specific gravity (U) [Rel density] 1.010 1.001-1.03 0 [facility] Squamous epithelial cells de tection in urine sediment by light microscopyOrdered By: Alverto Nath on 05-08-2022 Epithelial cells.squamous LM Ql (Urine sed) None seen [HPF] 0-2 [facility] Urine bacteria detection by automated methodOrdered By: Alverto Nath on 05-08-2022 Bacteria Auto Ql (U) None seen None Seen [facility] Urine clarity by refractomet ry automatedOrdered By: Alverto Nath on 05-08-2022 Clarity Refractometry automated (U) Clear Clear [facility] Urine glucose measurement by automated test strip (mass/volume)Ordered By: Alverto Nath on 05-08-2022 Glucose Auto test strip (U) [Mass/Vol] Normal mg/dL Normal [facility] Urine hemoglobin detection b y automated test stripOrdered By: Alverto Nath on 05-08-2022 Hemoglobin Auto test strip Ql (U) Negative Negative [facility] Urine leukocyte esterase det ection by automated test stripOrdered By: Alverto Nath on 05-08-2022 Leukocyte esterase Auto test strip Ql (U) 1+ Negative [facility] Urobilinogen Auto test strip (U) [Mass/Vol]Ordered By: Alverto Nath on 05-08-2022 Urobilinogen (U) [Mass/Vol] Normal mg/dL Normal [facility] pH Auto test strip (U)Ordere d By: Alverto Nath on 05-08-2022 pH (U) 5.5 [pH] 5.0-9.0 [facility] Basophils Auto (Bld) [#/Vol] Ordered By: Alverto Nath on 05-07-2022 Basophils (Bld) [#/Vol] 0.1 10*3/uL 0.0-0.2 [facility] Basophils/100 WBC Auto (Bld) Ordered By: Alverto Nath on 05-07-2022 Basophils/100 WBC (Bld) 0.9 % . [facility] Blood hemoglobin measurement (mass/volume)Ordered By: Alverto Nath on 05-07-2022 Hemoglobin (Bld) [Mass/Vol] 15.3 g/dL 13.0-17.0 [facility] Blood leukocytes automated c ount (number/volume)Ordered By: Alverto Nath on 05-07-2022 WBC (Bld) [#/Vol] 6.0 10*3/uL 4.5-11.0 [facility] Body fluid albumin measureme nt (mass/volume)Ordered By: Alverto Nath on 05-07-2022 Albumin (Body fld) [Mass/Vol] 4.3 g/dL 3.2-5.5 [facility] Creatinine and Glomerular fi ltration rate.predicted panel (S/P/Bld)Ordered By: Alverto Nath on 05-07-2022 Creatinine [Mass/Vol] 1.35 mg/dL 0.64-1.27 [facility] Direct bilirubin measurement Ordered By: Alverto Nath on 05-07-2022 Bilirubin.direct [Mass/Vol] mg/dL 0.0-0.4 [facility] Eosinophils Auto (Bld) [#/Vo l]Ordered By: Alverto Nath on 05-07-2022 Eosinophils (Bld) [#/Vol] 0.1 10*3/uL 0.0-0.45 [facility] Eosinophils/100 WBC Auto (Bl d)Ordered By: Alverto Nath on 05-07-2022 Eosinophils/100 WBC (Bld) 1.1 % . [facility] Erythrocyte distribution wid th Auto (RBC) [Ratio]Ordered By: Alverto Nath on 05-07-2022 Erythrocyte distribution width (RBC) [Ratio] 14.1 % 12.0-14.8 [facility] Estimated glomerular filtrat ion rate (GFR) non- AmericanOrdered By: Alverto Nath on 05-07-2022 GFR/1.73 sq M.predicted among non-blacks MDRD (S/P/Bld) [Vol rate/Area] > 60 mL/Min [facility] Globulin Calc (S) [Mass/Vol] Ordered By: Alverto Nath on 05-07-2022 Globulin (S) [Mass/Vol] 3.1 g/dL [facility] Hematocrit Auto (Bld) [Volum e fraction]Ordered By: Alverto Nath on 05-07-2022 Hematocrit (Bld) [Volume fraction] 46.1 % 38.8-50.0 [facility] Laboratory - Chemistry and C hemistry - challengeOrdered By: Alverto Nath on 05-07-2022 Lipase [Catalytic activity/Vol] 30.0 U/L 22-51 [facility] Laboratory - Hematology and Cell countsOrdered By: Alverto Nath on 05-07-2022 Nucleated RBC/100 WBC (Bld) [Ratio] 0.0 % 0-0.5 [facility] Lymphocytes Auto (Bld) [#/Vo l]Ordered By: Alverto Nath on 05-07-2022 Lymphocytes (Bld) [#/Vol] 2.1 10*3/uL 1.00-4.8 [facility] Lymphocytes/100 WBC Auto (Bl d)Ordered By: Alverto Nath on 05-07-2022 Lymphocytes/100 WBC (Bld) 35.2 % . [facility] MCH Auto (RBC) [Entitic mass ]Ordered By: Alverto Nath on 05-07-2022 MCH (RBC) [Entitic mass] 31.5 pg 27.5-35.2 [facility] MCHC Auto (RBC) [Mass/Vol]Or dered By: Alverto Nath on 05-07-2022 MCHC (RBC) [Mass/Vol] 33.2 g/dL 32.5-35.6 [facility] MCV Auto (RBC) [Entitic vol] Ordered By: Alverto Nath on 05-07-2022 MCV (RBC) [Entitic vol] 94.9 fL 83.5-101 [facility] Monocytes Auto (Bld) [#/Vol] Ordered By: Alverto Nath on 05-07-2022 Monocytes (Bld) [#/Vol] 0.4 10*3/uL 0.0-0.8 [facility] Monocytes/100 WBC Auto (Bld) Ordered By: Alverto Nath on 05-07-2022 Monocytes/100 WBC (Bld) 7.0 % . [facility] Neutrophils Auto (Bld) [#/Vo l]Ordered By: Alverto Nath on 05-07-2022 Neutrophils (Bld) [#/Vol] 3.4 10*3/uL 1.8-7.7 [facility] Neutrophils/100 WBC Auto (Bl d)Ordered By: Alverto Nath on 05-07-2022 Neutrophils/100 WBC (Bld) 55.8 % . [facility] No Panel InformationOrdered By: Alverto Nath on 05-07-2022 Estimated GFR () > 60 mL/Min [facility] Comment on above: GFR estimated refere nce range: According to KDOQI guidelines, <60 ml/min/1.73m2 is sufficient to diagnose a patient with chronic kidney disease. Pharmacy Creatinine Clearance (Chem 109.81 [facility] Platelet mean volume Auto (B ld) [Entitic vol]Ordered By: Alverto Nath on 05-07-2022 Platelet mean volume (Bld) [Entitic vol] 10.0 fL 6.6-10.1 [facility] Platelets Auto (Bld) [#/Vol] Ordered By: Alverto Nath on 05-07-2022 Platelets (Bld) [#/Vol] 128 10*3/uL 150-450 [facility] Protein [Mass/volume] in Ser um or PlasmaOrdered By: Alverto Nath on 05-07-2022 Protein [Mass/Vol] 7.4 g/dL 6.1-7.9 [facility] RBC Auto (Bld) [#/Vol]Ordere d By: Alverto Nath on 05-07-2022 RBC (Bld) [#/Vol] 4.86 10*6/uL 3.90-5.60 [facility] Serum or plasma alanine flores otransferase measurement without P-5'-P (enzymatic activiOrdered By: Alverto Nath on 05-07-2022 ALT No additional P-5'-P [Catalytic activity/Vol] 57 U/L 10-60 [facility] Serum or plasma albumin/glob ulin mass ratioOrdered By: Alverto Nath on 05-07-2022 Albumin/Globulin [Mass ratio] 1.4 {ratio} [facility] Serum or plasma alkaline rema sphatase measurement (enzymatic activity/volume)Ordered By: Alverto Nath on 05-07-2022 ALP [Catalytic activity/Vol] 59 U/L 32-92 [facility] Serum or plasma aspartate am inotransferase measurement (enzymatic activity/volume)Ordered By: Alverto Nath on 05-07-2022 AST [Catalytic activity/Vol] 29 U/L 10-42 [facility] Serum or plasma calcium levi urement (mass/volume)Ordered By: Alverto Nath on 05-07-2022 Calcium [Mass/Vol] 9.6 mg/dL 8.2-10.2 [facility] Serum or plasma chloride falguni surement (moles/volume)Ordered By: Alverto Nath on 05-07-2022 Chloride [Moles/Vol] 102 mmol/L 95-114 [facility] Serum or plasma glucose levi urement (mass/volume)Ordered By: Alverto Nath on 05-07-2022 Glucose [Mass/Vol] 99 mg/dL 70-100 [facility] Comment on above: ADA recommended refe rence range Random Glucose Reference Range is dependent on time and content of last meal. Glucose of more than 200 mg/dL in a nonstressed, ambulatory subject supports the diagnosis of Diabetes Mellitus. Serum or plasma non-glucuron idated bilirubin measurement (mass/volume)Ordered By: Alverto Nath on 05-07-2022 Bilirubin.indirect [Mass/Vol] TNP [facility] Comment on above: Test not performed Serum or plasma potassium me asurement (moles/volume)Ordered By: Alverto Nath on 05-07-2022 Potassium [Moles/Vol] 3.7 mmol/L 3.5-5.1 [facility] Serum or plasma sodium measu rement (moles/volume)Ordered By: Alverto Nath on 05-07-2022 Sodium [Moles/Vol] 136 mmol/L 136-146 [facility] Serum or plasma total biliru bin measurement (mass/volume)Ordered By: Alverto Nath on 05-07-2022 Bilirubin [Mass/Vol] 0.4 mg/dL 0.3-1.2 [facility] Serum or plasma total carbon dioxide measurement (moles/volume)Ordered By: Alverto Nath on 05-07-2022 CO2 [Moles/Vol] 25.3 mmol/L 22.0-30.0 [facility] Serum or plasma urea nitroge n measurement (mass/volume)Ordered By: Alverto Nath on 05-07-2022 Urea nitrogen [Mass/Vol] 13 mg/dL 9 [facility] Urine culture routineOrdered By: PROVIDER TEMP on 05-03-2022 Bacteria identified Cx Nom (U) 2 Days [facility] Automated erythrocytes count in urine sediment (number/area)Ordered By: PROVIDER TEMP on 05-01-2022 RBC Auto (Urine sed) [#/Area] 0-1 [HPF] 0-4 [facility] Automated leukocytes count i n urine sediment (number/area)Ordered By: PROVIDER TEMP on 05-01-2022 WBC Auto (Urine sed) [#/Area] 10-19 [HPF] 0-4 [facility] Bilirubin Test strip Ql (U)O rdered By: PROVIDER TEMP on 05-01-2022 Bilirubin Ql (U) Negative Negative [facility] Color Auto (U)Ordered By: NADINE HURTADO TEMP on 05-01-2022 Color (U) Yellow Yellow [facility] Ketones Auto test strip (U) [Mass/Vol]Ordered By: PROVIDER TEMP on 05-01-2022 Ketones (U) [Mass/Vol] Trace Negative Fi [facility] Laboratory - UrinalysisOrder ed By: PROVIDER TEMP on 05-01-2022 Hyaline casts LM Ql (Urine sed) 0-8 [LPF] 0-8 [facility] Nitrite Test strip Ql (U)Ord ered By: PROVIDER TEMP on 05-01-2022 Nitrite Ql (U) Negative Negative [facility] Protein Auto test strip (U) [Mass/Vol]Ordered By: PROVIDER TEMP on 05-01-2022 Protein (U) [Mass/Vol] Negative [facility] Specific gravity Auto test s trip (U) [Rel density]Ordered By: PROVIDER TEMP on 05-01-2022 Specific gravity (U) [Rel density] 1.021 1.001-1.03 0 [facility] Squamous epithelial cells de tection in urine sediment by light microscopyOrdered By: PROVIDER TEMP on 05-01-2022 Epithelial cells.squamous LM Ql (Urine sed) 0-1 [HPF] 0-2 [facility] Urine bacteria detection by automated methodOrdered By: PROVIDER TEMP on 05-01-2022 Bacteria Auto Ql (U) None seen None Seen [facility] Urine clarity by refractomet ry automatedOrdered By: PROVIDER TEMP on 05-01-2022 Clarity Refractometry automated (U) Clear Clear [facility] Urine culture routineOrdered By: PROVIDER TEMP on 05-01-2022 Bacteria identified Cx Nom (U) 2 Days [facility] Urine glucose measurement by automated test strip (mass/volume)Ordered By: PROVIDER TEMP on 05-01-2022 Glucose Auto test strip (U) [Mass/Vol] Normal mg/dL Normal [facility] Urine hemoglobin detection b y automated test stripOrdered By: PROVIDER TEMP on 05-01-2022 Hemoglobin Auto test strip Ql (U) Negative Negative [facility] Urine leukocyte esterase det ection by automated test stripOrdered By: PROVIDER TEMP on 05-01-2022 Leukocyte esterase Auto test strip Ql (U) 2+ Negative [facility] Urobilinogen Auto test strip (U) [Mass/Vol]Ordered By: PROVIDER TEMP on 05-01-2022 Urobilinogen (U) [Mass/Vol] Normal mg/dL Normal [facility] pH Auto test strip (U)Ordere d By: PROVIDER TEMP on 05-01-2022 pH (U) 5.5 [pH] 5.0-9.0 [facility] Basophils Auto (Bld) [#/Vol] Ordered By: Quan Neal on 03-11-2022 Basophils (Bld) [#/Vol] 0.0 10*3/uL 0.0-0.2 [facility] Basophils/100 WBC Auto (Bld) Ordered By: Quan Neal on 03-11-2022 Basophils/100 WBC (Bld) 0.9 % [facility] Blood hemoglobin measurement (mass/volume)Ordered By: Quan Neal on 03-11-2022 Hemoglobin (Bld) [Mass/Vol] 15.0 g/dL 13.0-17.0 [facility] Blood leukocytes automated c ount (number/volume)Ordered By: Quan Neal on 03-11-2022 WBC (Bld) [#/Vol] 4.2 10*3/uL 4.5-11.0 [facility] Body fluid albumin measureme nt (mass/volume)Ordered By: Quan Neal on 03-11-2022 Albumin (Body fld) [Mass/Vol] 4.0 g/dL 3.2-5.5 [facility] [facility] Creatinine and Glomerular fi ltration rate.predicted panel (S/P/Bld)Ordered By: Quan Neal on 03-11-2022 Creatinine [Mass/Vol] 1.37 mg/dL 0.64-1.27 [facility] Eosinophils Auto (Bld) [#/Vo l]Ordered By: Quan Neal on 03-11-2022 Eosinophils (Bld) [#/Vol] 0.1 10*3/uL 0.0-0.45 [facility] Eosinophils/100 WBC Auto (Bl d)Ordered By: Quan Neal on 03-11-2022 Eosinophils/100 WBC (Bld) 2.0 % [facility] Erythrocyte distribution wid th Auto (RBC) [Ratio]Ordered By: Quan Neal on 03-11-2022 Erythrocyte distribution width (RBC) [Ratio] 14.0 % 12.0-14.8 [facility] Estimated glomerular filtrat ion rate (GFR) non- AmericanOrdered By: Quan Neal on 03-11-2022 GFR/1.73 sq M.predicted among non-blacks MDRD (S/P/Bld) [Vol rate/Area] > 60 mL/Min [facility] Globulin Calc (S) [Mass/Vol] Ordered By: Quan Neal on 03-11-2022 Globulin (S) [Mass/Vol] 2.7 g/dL [facility] Hematocrit Auto (Bld) [Volum e fraction]Ordered By: Quan Neal on 03-11-2022 Hematocrit (Bld) [Volume fraction] 44.3 % 38.8-50.0 [facility] Laboratory - Hematology and Cell countsOrdered By: Quan Neal on 03-11-2022 Nucleated RBC/100 WBC (Bld) [Ratio] 0.1 % 0-0.5 [facility] Lactate dehydrogenase measur ement (enzymatic activity/volume)Ordered By: Quan Neal on 03-11-2022 LDH (Unsp spec) [Catalytic activity/Vol] 175 U/L 45-190 [facility] Lymphocytes Auto (Bld) [#/Vo l]Ordered By: Quan Neal on 03-11-2022 Lymphocytes (Bld) [#/Vol] 1.6 10*3/uL 1.00-4.8 [facility] Lymphocytes/100 WBC Auto (Bl d)Ordered By: Quan Neal on 03-11-2022 Lymphocytes/100 WBC (Bld) 38.0 % [facility] MCH Auto (RBC) [Entitic mass ]Ordered By: Quan Neal on 03-11-2022 MCH (RBC) [Entitic mass] 31.5 pg 27.5-35.2 [facility] MCHC Auto (RBC) [Mass/Vol]Or dered By: Quan Neal on 03-11-2022 MCHC (RBC) [Mass/Vol] 33.8 g/dL 32.5-35.6 [facility] MCV Auto (RBC) [Entitic vol] Ordered By: Quan Neal on 03-11-2022 MCV (RBC) [Entitic vol] 93.2 fL 83.5-101 [facility] Monocytes Auto (Bld) [#/Vol] Ordered By: Quan Neal on 03-11-2022 Monocytes (Bld) [#/Vol] 0.2 10*3/uL 0.0-0.8 [facility] Monocytes/100 WBC Auto (Bld) Ordered By: Quan Neal on 03-11-2022 Monocytes/100 WBC (Bld) 5.1 % [facility] Neutrophils Auto (Bld) [#/Vo l]Ordered By: Quan Neal on 03-11-2022 Neutrophils (Bld) [#/Vol] 2.2 10*3/uL 1.8-7.7 [facility] Neutrophils/100 WBC Auto (Bl d)Ordered By: Quan Neal on 03-11-2022 Neutrophils/100 WBC (Bld) 54.0 % [facility] No Panel InformationOrdered By: Quan Neal on 03-11-2022 Estimated GFR () > 60 mL/Min [facility] Comment on above: GFR estimated refere nce range: According to KDOQI guidelines, <60 ml/min/1.73m2 is sufficient to diagnose a patient with chronic kidney disease. Pharmacy Creatinine Clearance (Chem 109.54 [facility] Platelet mean volume Auto (B ld) [Entitic vol]Ordered By: Quan Neal on 03-11-2022 Platelet mean volume (Bld) [Entitic vol] 9.8 fL 6.6-10.1 [facility] Platelets Auto (Bld) [#/Vol] Ordered By: Quan Neal on 03-11-2022 Platelets (Bld) [#/Vol] 134 10*3/uL 150-450 [facility] Protein [Mass/volume] in Ser um or PlasmaOrdered By: Quan Neal on 03-11-2022 Protein [Mass/Vol] 6.7 g/dL 6.1-7.9 [facility] RBC Auto (Bld) [#/Vol]Ordere d By: Quan Neal on 03-11-2022 RBC (Bld) [#/Vol] 4.76 10*6/uL 3.90-5.60 [facility] Serum or plasma alanine flores otransferase measurement without P-5'-P (enzymatic activiOrdered By: Quan Neal on 03-11-2022 ALT No additional P-5'-P [Catalytic activity/Vol] 47 U/L 10-60 [facility] Serum or plasma albumin/glob ulin mass ratioOrdered By: Quan Neal on 03-11-2022 Albumin/Globulin [Mass ratio] 1.5 {ratio} [facility] Serum or plasma alkaline rema sphatase measurement (enzymatic activity/volume)Ordered By: Quan Neal on 03-11-2022 ALP [Catalytic activity/Vol] 62 U/L 32-92 [facility] Serum or plasma aspartate am inotransferase measurement (enzymatic activity/volume)Ordered By: Quan Neal on 03-11-2022 AST [Catalytic activity/Vol] 28 U/L 10-42 [facility] Serum or plasma calcium levi urement (mass/volume)Ordered By: Quan Neal on 03-11-2022 Calcium [Mass/Vol] 8.9 mg/dL 8.2-10.2 [facility] Serum or plasma chloride falguni surement (moles/volume)Ordered By: Quan Neal on 03-11-2022 Chloride [Moles/Vol] 103 mmol/L 95-114 [facility] Serum or plasma glucose levi urement (mass/volume)Ordered By: Quan Neal on 03-11-2022 Glucose [Mass/Vol] 114 mg/dL 70-100 [facility] Comment on above: ADA recommended refe rence rangeRandom Glucose Reference Range is dependent on time and content of last meal. Glucose of more than 200 mg/dL in a nonstressed, ambulatory subject supports the diagnosis of Diabetes Mellitus. ADA recommended refe rence range Random Glucose Reference Range is dependent on time and content of last meal. Glucose of more than 200 mg/dL in a nonstressed, ambulatory subject supports the diagnosis of Diabetes Mellitus. Serum or plasma potassium me asurement (moles/volume)Ordered By: Quan Neal on 03-11-2022 Potassium [Moles/Vol] 4.0 mmol/L 3.5-5.1 [facility] Serum or plasma sodium measu rement (moles/volume)Ordered By: Quan Neal on 03-11-2022 Sodium [Moles/Vol] 138 mmol/L 136-146 [facility] Serum or plasma total biliru bin measurement (mass/volume)Ordered By: Quan Neal on 03-11-2022 Bilirubin [Mass/Vol] 0.9 mg/dL 0.3-1.2 [facility] Serum or plasma total carbon dioxide measurement (moles/volume)Ordered By: Quan Neal on 03-11-2022 CO2 [Moles/Vol] 25.0 mmol/L 22.0-30.0 [facility] Serum or plasma urea nitroge n measurement (mass/volume)Ordered By: Quan Neal on 03-11-2022 Urea nitrogen [Mass/Vol] 7 mg/dL 9-23 [facility] HIV 1 RNA viral load measure ment (log number/volume)Ordered By: Ellie Nath on 02-07-2022 HIV 1 RNA GIANLUCA+probe (Unsp spec) [Log #/Vol] See comment [facility] Comment on above: Result Units: log10c opy/mLUnable to calculate result since non-numeric resultobtained for component test.Performed at: [facility], [place] [id number] Director: Jackelin Hahn MD, Phone: [phone] Result Units: log10c opy/mL Unable to calculate result since non-numeric result obtained for component test. Performed at: [facility] [place] [address], [place] [id number] Mallet Cutter: Jackelin Hahn MD, Phone: [phone] HIV 1 RNA viral load measure ment by probe and target amplification method (number/volOrdered By: Ellie Nath on 02-07-2022 HIV 1 RNA GIANLUCA+probe (Unsp spec) [#/Vol] <20 copies/mL [facility] Comment on above: HIV-1 RNA not detect edThe reportable range for this assay is 20 to 10,000,000copies HIV-1 RNA/mL. HIV-1 RNA not detect ed The reportable range for this assay is 20 to 10,000,000 copies HIV-1 RNA/mL. HIV 1 and HIV-2 antibody ass ay with HIV-1 p24 antigen detectionOrdered By: Ellie Nath on 02-07-2022 HIV 1+2 Ab+HIV1 p24 Ag IA Ql Non-Reactive Non Reactive [facility] Comment on above: HIV NegativeHIV-1/HI V-2 antibodies and HIV-1 p24 antigen were NOTdetected. There is no laboratory evidence of HIV infection.Performed at: [facility] [place] [id number] Director: Josh Carvalho PhD, Phone: [phone] HIV Negative HIV-1/HIV-2 antibodies and HIV-1 p24 antigen were NOT detected. There is no laboratory evidence of HIV infection. Performed at: [email or web address] [id number] Mal[employer] Cutter: Josh Carvalho PhD, Phone: [phone] No Panel InformationOrdered By: Ellie Nath on 02-07-2022 RPR Quantitative Confirmation 1:2 NonRea<1:1 [facility] Reagin Ab [Presence] in Seru m by RPROrdered By: Ellie Nath on 02-07-2022 Reagin Ab RPR Ql (S) Reactive Non Reactive [facility] Serum Treponema pallidum ant ibody detection by immunofluorescenceOrdered By: Ellie Nath on 02-07-2022 T. pallidum Ab IF Ql (S) Reactive Non Reactive [facility] Comment on above: Performed at: [facility] [place] [id number] Director: Josh Carvalho PhD, Phone: [phone] Performed at: [facility] [address] [place] [id number] Mallet Cutter: Josh Carvalho PhD, Phone: [phone] Treponema pallidum IgG+IgM A b [Presence] in Serum by ImmunoassayOrdered By: Ellie Nath on 02-07-2022 T. pallidum IgG+IgM IA Ql (S) Reactive Non Reactive [facility] Laboratory - CoagulationOrde red By: Silvio Tovar on 11-21-2021 PT Coag (PPP) [Time] 12.5 s 9.0-12.9 [facility] Platelet poor plasma interna tional normalized ratio (INR) by coagulation assay (relatOrdered By: Silvio Tovar on 11-21-2021 INR Coag (PPP) [Relative time] 1.1 {INR} [facility] Comment on above: INR Therapeutic Rang e A) Pre- and Peroperative OAT started two weeks before surgery. NOT HIP SURGERY: 1.5 - 2.5 HIP SURGERY: 2 - 3B) Primary and secondary prevention of venous THROMBOSIS: 2 - 3C) Active venous thrombosis, pulmonary embolismand prevention of recurrent venous thrombosis: 2 - 3D) Prevention of arterial thromboembolismincluding patients with mechanical heart valves: 3 - 4.5 Platelets Auto (Bld) [#/Vol] Ordered By: Silvio Tovar on 11-21-2021 Platelets (Bld) [#/Vol] 131 10*3/uL 150-450 [facility] COVID-19 SOFIAOrdered By: Namrata Singleton on 11-13-2021 SARS-CoV+SARS-CoV-2 (COVID-19) Ag IA.rapid Ql (Resp) Positive Negative [facility] Comment on above: This is a duplicate Mirela SARS Antigen (MICHAEL) result to be used for statistical tracking purpose only. No Panel InformationOrdered By: Sabiha Singleton on 11-13-2021 SARS Antigen (LFIA) [facility] Vital Signs Date Time Vital Sign Value Performing Clinician Facility 02-20-2024 16:54-0400 Body temperature 98.06 [degF] Travis Valentine [facility] 02-20-2024 16:54-0400 Diastolic blood pressure 101 mm[Hg] Travis Valentine [facility] 02-20-2024 16:54-0400 Heart rate 79 /min Travis Valentine [facility] 02-20-2024 16:54-0400 Respiratory rate 20 /min Travis Valentine [facility] 02-20-2024 16:54-0400 SaO2% (BldA) [Mass fraction] 99 % Travis Serge [facility] 02-20-2024 16:54-0400 Systolic blood pressure 152 mm[Hg] Travis Serge [facility] 12-01-2023 12:20-0500 Body height 182.88 cm PHYSICIAN NO [facility] 12-01-2023 12:20-0500 Body temperature 97.9 [degF] PHYSICIAN NO [facility] 12-01-2023 12:20-0500 Body weight 114.05 kg PHYSICIAN NO [facility] 12-01-2023 12:20-0500 Diastolic blood pressure 93 mm[Hg] PHYSICIAN NO [facility] 12-01-2023 12:20-0500 Heart rate 82 /min PHYSICIAN NO [facility] 12-01-2023 12:20-0500 Respiratory rate 16 /min PHYSICIAN NO [facility] 12-01-2023 12:20-0500 SaO2% (BldA) [Mass fraction] 98 % PHYSICIAN NO [facility] 12-01-2023 12:20-0500 Systolic blood pressure 144 mm[Hg] PHYSICIAN NO [facility] 06-26-2023 10:04-0400 Body temperature 98.3 [degF] PHYSICIAN NO [facility] 06-26-2023 10:04-0400 Diastolic blood pressure 91 mm[Hg] PHYSICIAN NO [facility] 06-26-2023 10:04-0400 Heart rate 85 /min PHYSICIAN NO [facility] 06-26-2023 10:04-0400 Respiratory rate 18 /min PHYSICIAN NO [facility] 06-26-2023 10:04-0400 SaO2% (BldA) [Mass fraction] 96 % PHYSICIAN NO [facility] 06-26-2023 10:04-0400 Systolic blood pressure 137 mm[Hg] PHYSICIAN NO [facility] 06-26-2023 08:08-0400 Body height 182.88 cm PHYSICIAN NO [facility] 06-26-2023 08:08-0400 Body weight 117.15 kg PHYSICIAN NO [facility] 05-14-2023 23:36-0400 Diastolic blood pressure 92 mm[Hg] PHYSICIAN NO [facility] 05-14-2023 23:36-0400 Systolic blood pressure 151 mm[Hg] PHYSICIAN NO [facility] 05-14-2023 23:31-0400 Body height 182.88 cm PHYSICIAN NO [facility] 05-14-2023 23:31-0400 Body temperature 98.4 [degF] PHYSICIAN NO [facility] 05-14-2023 23:31-0400 Body weight 115.66 kg PHYSICIAN NO [facility] 05-14-2023 23:31-0400 Heart rate 94 /min PHYSICIAN NO [facility] 05-14-2023 23:31-0400 Respiratory rate 18 /min PHYSICIAN NO [facility] 05-14-2023 23:31-0400 SaO2% (BldA) [Mass fraction] 98 % PHYSICIAN NO [facility] 04-14-2023 00:44-0400 Body height 182.88 cm PHYSICIAN NO [facility] 04-14-2023 00:44-0400 Body temperature 98 [degF] PHYSICIAN NO [facility] 04-14-2023 00:44-0400 Body weight 111.13 kg PHYSICIAN NO [facility] 04-14-2023 00:44-0400 Diastolic blood pressure 120 mm[Hg] PHYSICIAN NO [facility] 04-14-2023 00:44-0400 Heart rate 114 /min PHYSICIAN NO [facility] 04-14-2023 00:44-0400 Respiratory rate 22 /min PHYSICIAN NO [facility] 04-14-2023 00:44-0400 SaO2% (BldA) [Mass fraction] 98 % PHYSICIAN NO [facility] 04-14-2023 00:44-0400 Systolic blood pressure 177 mm[Hg] PHYSICIAN NO [facility] 01-28-2023 23:27-0400 Diastolic blood pressure 87 mm[Hg] PHYSICIAN NO [facility] 01-28-2023 23:27-0400 Heart rate 98 /min PHYSICIAN NO [facility] 01-28-2023 23:27-0400 Respiratory rate 20 /min PHYSICIAN NO [facility] 01-28-2023 23:27-0400 SaO2% (BldA) [Mass fraction] 98 % PHYSICIAN NO [facility] 01-28-2023 23:27-0400 Systolic blood pressure 189 mm[Hg] PHYSICIAN NO [facility] 01-28-2023 23:26-0400 Body height 182.88 cm PHYSICIAN NO [facility] 01-28-2023 23:26-0400 Body weight 115.66 kg PHYSICIAN NO [facility] 08-08-2022 12:37-0400 Body temperature 98.4 [degF] Provider [facility] 08-08-2022 12:33-0400 Body height 182.88 cm Provider [facility] 08-08-2022 12:33-0400 Body weight 106.59 kg Provider [facility] 08-08-2022 12:33-0400 Diastolic blood pressure 86 mm[Hg] Provider [facility] 08-08-2022 12:33-0400 Heart rate 94 /min Provider [facility] 08-08-2022 12:33-0400 Respiratory rate 20 /min Provider [facility] 08-08-2022 12:33-0400 SaO2% (BldA) [Mass fraction] 100 % Provider [facility] 08-08-2022 12:33-0400 Systolic blood pressure 151 mm[Hg] Provider [facility] 05-08-2022 00:01-0400 Diastolic blood pressure 93 mm[Hg] PHYSICIAN NO [facility] 05-08-2022 00:01-0400 Heart rate 77 /min PHYSICIAN NO [facility] 05-08-2022 00:01-0400 Respiratory rate 20 /min PHYSICIAN NO [facility] 05-08-2022 00:01-0400 SaO2% (BldA) [Mass fraction] 97 % PHYSICIAN NO [facility] 05-08-2022 00:01-0400 Systolic blood pressure 143 mm[Hg] PHYSICIAN NO [facility] 05-07-2022 22:12-0400 Body height 182.88 cm PHYSICIAN NO [facility] 05-07-2022 22:12-0400 Body mass index (BMI) [Ratio] 35.8 kg/m2 PHYSICIAN NO [facility] 05-07-2022 22:12-0400 Body temperature 98.2 [degF] PHYSICIAN NO [facility] 05-07-2022 22:12-0400 Body weight 119.74 kg PHYSICIAN NO [facility] 05-01-2022 12:37-0400 Body height 182.88 cm PHYSICIAN NO [facility] 05-01-2022 12:37-0400 Body mass index (BMI) [Ratio] 36 kg/m2 PHYSICIAN NO [facility] 05-01-2022 12:37-0400 Body temperature 98.7 [degF] PHYSICIAN NO [facility] 05-01-2022 12:37-0400 Body weight 120.45 kg PHYSICIAN NO [facility] 05-01-2022 12:37-0400 Diastolic blood pressure 94 mm[Hg] PHYSICIAN NO [facility] 05-01-2022 12:37-0400 Heart rate 73 /min PHYSICIAN NO [facility] 05-01-2022 12:37-0400 Respiratory rate 20 /min PHYSICIAN NO [facility] 05-01-2022 12:37-0400 SaO2% (BldA) [Mass fraction] 99 % PHYSICIAN NO [facility] 05-01-2022 12:37-0400 Systolic blood pressure 146 mm[Hg] PHYSICIAN NO [facility] 03-12-2022 14:29-0400 Body temperature 97.9 [degF] PHYSICIAN NO [facility] 03-12-2022 14:29-0400 Body weight 122.01 kg PHYSICIAN NO [facility] 03-12-2022 14:29-0400 Diastolic blood pressure 89 mm[Hg] PHYSICIAN NO [facility] 03-12-2022 14:29-0400 Heart rate 79 /min PHYSICIAN NO [facility] 03-12-2022 14:29-0400 Respiratory rate 16 /min PHYSICIAN NO [facility] 03-12-2022 14:29-0400 SaO2% (BldA) [Mass fraction] 96 % PHYSICIAN NO [facility] 03-12-2022 14:29-0400 Systolic blood pressure 136 mm[Hg] PHYSICIAN NO [facility] 02-07-2022 14:58-0400 Body height 182.88 cm [facility] Work Phone: [facility] 02-07-2022 14:58-0400 Body mass index (BMI) [Ratio] 34.5 kg/m2 [facility] Work Phone: [facility] 02-07-2022 14:58-0400 Body temperature 98.8 [degF] [facility] Work Phone: [facility] 02-07-2022 14:58-0400 Body weight 115.66 kg [facility] Work Phone: [facility] 02-07-2022 14:58-0400 Diastolic blood pressure 99 mm[Hg] [facility] Work Phone: [facility] 02-07-2022 14:58-0400 Heart rate 82 /min [facility] Work Phone: [facility] 02-07-2022 14:58-0400 Respiratory rate 20 /min [facility] Work Phone: [facility] 02-07-2022 14:58-0400 SaO2% (BldA) [Mass fraction] 97 % [facility] [employer] Work Phone: [facility] 02-07-2022 14:58-0400 Systolic blood pressure 143 mm[Hg] [facility] Work Phone: [facility] 12-10-2021 15:19-0500 Body temperature 98 [degF] [facility] Work Phone: [facility] 12-10-2021 15:19-0500 Body weight 122.65 kg [facility] Work Phone: [facility] 12-10-2021 15:19-0500 Diastolic blood pressure 84 mm[Hg] [facility] Work Phone: [facility] 12-10-2021 15:19-0500 Heart rate 112 /min [facility] Work Phone: [facility] 12-10-2021 15:19-0500 Respiratory rate 20 /min [facility] Work Phone: [facility] 12-10-2021 15:19-0500 SaO2% (BldA) [Mass fraction] 97 % [facility] Work Phone: [facility] 12-10-2021 15:19-0500 Systolic blood pressure 149 mm[Hg] [facility] Work Phone: [facility] 12-10-2021 15:07-0500 Body height 182.88 cm [facility] Work Phone: [facility] 11-21-2021 11:59-0500 Diastolic blood pressure 86 mm[Hg] [facility] Work Phone: [facility] 11-21-2021 11:59-0500 Heart rate 74 /min [facility] Work Phone: [facility] 11-21-2021 11:59-0500 Respiratory rate 16 /min [facility] Work Phone: [facility] 11-21-2021 11:59-0500 SaO2% (BldA) [Mass fraction] 99 % [facility] Work Phone: [facility] 11-21-2021 11:59-0500 Systolic blood pressure 139 mm[Hg] [facility] Work Phone: [facility] 11-21-2021 10:55-0500 Body height 182.88 cm [facility] Work Phone: [facility] 11-21-2021 10:55-0500 Body mass index (BMI) [Ratio] 33.9 kg/m2 [facility] Work Phone: [facility] 11-21-2021 10:55-0500 Body weight 113.39 kg [facility] Work Phone: [facility] 11-13-2021 16:25-0500 Body height 182.88 cm [facility] Work Phone: [facility] 11-13-2021 16:25-0500 Body mass index (BMI) [Ratio] 33.9 kg/m2 [facility] Work Phone: [facility] 11-13-2021 16:25-0500 Body temperature 98.9 [degF] [facility] Work Phone: [facility] 11-13-2021 16:25-0500 Body weight 113.39 kg [facility] Work Phone: [facility] 11-13-2021 16:25-0500 Diastolic blood pressure 84 mm[Hg] [facility] Work Phone: [facility] 11-13-2021 16:25-0500 Heart rate 96 /min [facility] Work Phone: [facility] 11-13-2021 16:25-0500 Respiratory rate 18 /min [facility] Work Phone: [facility] 11-13-2021 16:25-0500 SaO2% (BldA) [Mass fraction] 98 % [facility] Work Phone: [facility] 11-13-2021 16:25-0500 Systolic blood pressure 163 mm[Hg] [facility] Work Phone: [facility] Encounters Encounter Date Encounter Type Care Provider Facility Start: 04-07-2024 End: 04-07-2024 ambulatory WALT ARREOLA Not Available Start: 02-20-2024 End: 02-20-2024 Emergency department patient visit Travis Valentine Facility:[facility] Start: 02-20-2024 End: 02-20-2024 Emergency department patient visit Travis Valentine [facility] Start: 12-01-2023 End: 12-01-2023 Emergency department patient visit PHYSICIAN NO FAMILY Facility:[facility] Start: 12-01-2023 End: 12-01-2023 Emergency department patient visit PHYSICIAN NO [facility] Work Phone: Start: 06-26-2023 End: 06-26-2023 Emergency department patient visit PHYSICIAN NO [facility] Work Phone: Start: 05-15-2023 End: 05-15-2023 Emergency department patient visit PHYSICIAN NO FAMILY Facility:[facility] Start: 05-14-2023 End: 05-14-2023 Emergency department patient visit PHYSICIAN NO [facility] Work Phone: Start: 04-14-2023 End: 04-14-2023 Emergency department patient visit PHYSICIAN NO FAMILY Facility:[facility] Start: 04-14-2023 End: 04-14-2023 Emergency department patient visit PHYSICIAN NO [facility] Work Phone: Start: 01-28-2023 End: 01-29-2023 Emergency department patient visit PHYSICIAN NO [facility] Work Phone: Start: 08-08-2022 End: 08-08-2022 [facility] Start: 07-05-2022 End: 07-05-2022 Emergency department patient visit PHYSICIAN NO [facility] Start: 05-07-2022 End: 05-08-2022 Emergency department patient visit PHYSICIAN NO [facility] Start: 05-01-2022 End: 05-01-2022 Emergency department patient visit PHYSICIAN NO [facility] Start: 03-12-2022 End: 03-12-2022 Registered Recurring PHYSICIAN NO [facility] Start: 02-07-2022 End: 02-07-2022 Emergency department patient visit Services [employer] Work Phone: [facility] Start: 12-10-2021 Registered Recurring Services [facility] [employer] Work Phone: [facility] Start: 11-21-2021 End: 11-21-2021 Admission to same day surgery center Services [facility] [employer] Work Phone: [facility]-Ultrasound [facility] [place] Start: 11-13-2021 End: 11-13-2021 Emergency department patient visit Services [facility] [employer] Phone: [facility] Procedures Date Procedure Procedure Detail Performing Clinician Start: 06-26-2023 SARS-CoV-2, Influenz a & RSV (PCR) PHYSICIAN NO FAMILY Start: 06-26-2023 Plain chest X-ray PHYSI MARIBETH NO FAMILY Start: 05-01-2022 Urine culture PHYSICIAN NO FAMILY Start: 05-01-2022 Plain X-ray of right shoulder PHYSICIAN NO FAMILY Start: 11-21-2021 US bx lymph node Servic es [facility] [employer] Work Phone: Start: 11-13-2021 SARS Antigen (LFIA) Ser vices [facility] Work Phone: Urine culture PHYSICIAN NO F AMILY Urine culture PHYSICIAN NO F AMILY Plan of Treatment Date Care Activity Detail Author Start: 12-01-2023 [facility] Start: 05-08-2022 Bacteria identified in Urine by Culture Urine Culture [facility] Bacteria identified in Urine by Culture [facility] Work Phone: Chlamydia trachomati s DNA [Presence] in Unspecified specimen by GIANLUCA with probe detection [facility] HIV 1 RNA [#/volume] (viral load) in Unspecified specimen by GIANLUCA with probe detection [facility] Work Phone: HIV 1 RNA [Log #/vol ume] (viral load) in Unspecified specimen by GIANLUCA with probe detection [facility] Work Phone: HIV 1+2 Ab+HIV1 p24 Ag [Presence] in Serum or Plasma by Immunoassay [facility] Work Phone: Neisseria gonorrhoea e DNA [Presence] in Unspecified specimen by GIANLUCA with probe detection [facility] Patient Education [facility] Work Phone: Patient referral [facility] Work Phone: Reagin Ab [Presence] in Serum by RPR [facility] Work Phone: Treponema pallidum A b [Presence] in Serum by Immunofluorescence [facility] Work Phone: Trichomonas vaginali s DNA [Presence] in Unspecified specimen by GIANLUCA with probe detection [facility] Payers Date Payer Category Payer Medicaid [id number] 2023 Self-pay [id number] 1995 Unknown [id number] Medicaid [id number] Private Health Insurance [id number] Unknown Insurance No Card [id number] Unknown [id number] Unknown [id number] Unknown [id number] Unknown [id number] Worker's Compensation Industrial Self Ins [facility] [id number] Social History Date Type Detail Facility Start: 02-07-2022 End: 06-26-2023 Tobacco smoking status [facility] Smoker (finding) [facility] Start: 1995 Sex Assigned At Male F [facility] Start: 03-12-2022 End: 12-01-2023 Tobacco smoking status NHIS Ex-smoker (finding) [facility] Start: 09-11-2017 Tobacco smoking status Smokes tobacco daily (finding) [facility] Comment on above: 2 black and milds da mary, 1-2 cigarettes weekly Sex Assigned At Male [facility] Functional Status Date Assessment Result Facility 02-20-2024 Functional Status N/A [facility] Clinical Notes 12-01-2023 to 02-20-2024 Note Date & Type Note Facility 02-20-2024 Hospital Discharg e instructions Patient Education 02/20/2024 17:38:53 Chronic Back Pain Chronic Back Pain When back pain lasts longer than 3 months, it is called chronic back pain. The cause of your back pain may not be known. Some common causes include: Wear and tear (degenerative disease) of the bones, ligaments, or disks in your back. Inflammation and stiffness in your back (arthritis). People who have chronic back pain often go through certain periods in which the pain is more intense (flare-ups). Many people can learn to manage the pain with home care. Follow these instructions at home: Pay attention to any changes in your symptoms. Take these actions to help with your pain: Managing pain and stiffness If directed, apply ice to the painful area. Your health care provider may recommend applying ice during the first 24 48 hours after a flare-up begins. To do this: ?Put ice in a plastic bag. ?Place a towel between your skin and the bag. ?Leave the ice on for 20 minutes, 2 3 times per day. If directed, apply heat to the affected area as often as told by your health care provider. Use the heat source that your health care provider recommends, such as a moist heat pack or a heating pad. ?Place a towel between your skin and the heat source. ?Leave the heat on for 20 30 minutes. ?Remove the heat if your skin turns bright red. This is especially important if you are unable to feel pain, heat, or cold. You may have a greater risk of getting burned. Try soaking in a warm tub. Activity Avoid bending and other activities that make the problem worse. Maintain a proper position when standing or sitting: ?When standing, keep your upper back and neck straight, with your shoulders pulled back. Avoid slouching. ?When sitting, keep your back straight and relax your shoulders. Do not round your shoulders or pull them backward. Do not sit or chip applying machine tender one place for long periods of time. Take brief periods of rest throughout the day. This will reduce your pain. Resting in a lying or standing position is usually better than sitting to rest. When you are resting for longer periods, mix in some mild activity or stretching between periods of rest. This will help to prevent stiffness and pain. Get regular exercise. Ask your health care provider what activities are safe for you. Do not lift anything that is heavier than 10 lb (4.5 kg), or the limit that you are told, until your health care provider says that it is safe. Always use proper lifting technique, which includes: ?Bending your knees. ?Keeping the load close to your body. ?Avoiding twisting. Sleep on a firm mattress in a comfortable position. Try lying on your side with your knees slightly bent. If you lie on your back, put a pillow under your knees. Medicines Treatment may include medicines for pain and inflammation taken by mouth or applied to the skin, prescription pain medicine, or muscle relaxants. Take iakd-mtm-qqeigyz and prescription medicines only as told by your health care provider. Ask your health care provider if the medicine prescribed to you: ?Requires you to avoid driving or using machinery. ?Can cause constipation. You may need to take these actions to prevent or treat constipation: ?Drink enough fluid to keep your urine pale yellow. ?Take eqiu-ait-cvtdsjm or prescription medicines. ?Eat foods that are high in fiber, such as beans, whole grains, and fresh fruits and vegetables. ?Limit foods that are high in fat and processed sugars, such as fried or sweet foods. General instructions Do not use any products that contain nicotine or tobacco, such as cigarettes, e-cigarettes, and chewing tobacco. If you need help quitting, ask your health care provider. Keep all follow-up visits as told by your health care provider. This is important. Contact a health care provider if: You have pain that is not relieved with rest or medicine. Your pain gets worse, or you have new pain. You have a high fever. You have rapid weight loss. You have trouble doing your normal activities. Get help right away if: You have weakness or numbness in one or both of your legs or feet. You have trouble controlling your bladder or your bowels. You have severe back pain and have any of the following: ?Nausea or vomiting. ?Pain in your abdomen. ?Shortness of breath or you faint. Summary Chronic back pain is back pain that lasts longer than 3 months. When a flare-up begins, apply ice to the painful area for the first 24 48 hours. Apply a moist heat pad or use a heating pad on the painful area as directed by your health care provider. When you are resting for longer periods, mix in some mild activity or stretching between periods of rest. This will help to prevent stiffness and pain. This information is not intended to replace advice given to you by your health care provider. Make sure you discuss any questions you have with your health care provider. Document Revised: 12/06/2020 Document Reviewed: 12/06/2020 [employer] Patient Education 2022 [employer]. Follow Up Care 02/20/2024 16:48:14 With:Silvio CORRALES Address: [address] [place] [address] Business (1) When:02/23/2024 17:27:33 [facility] 02-20-2024 Evaluation + Plan note Extrac brayden from: Title:ED Note Author:Alex CUELLAR, Shaheed Jc te:02/20/24 Back pain (M54.9: Dorsalgia, unspecified) Orders: albuterol, 2 puff(s), Inhalation, q6hr Wheezing, 8.5 gm, Refill(s) 0, [id number], 183, cm, 02/20/24 16:57:00 EDT, Height/Length Dosing, 119.3, kg, 02/20/24 16:57:00 EDT, Weight Dosing predniSONE, 60 mg = 3 tab(s), Oral, Daily, X 7 day(s), # 21 tab(s), Refills(s) 0, Pharmacy: [id number], 183, cm, 02/20/24 16:57:00 EDT, Height/Length Dosing, 119.3, kg, 02/20/24 16:57:00 EDT, Weight Dosing [facility]01-22-2024 Hospital Discharge instructions Additional Instructions Take the antibiotic doxycycline twice a day for 7 days take with food No sexual activity for 2 weeks Always use a condom We usually call you with results but if you do not receive a phone call after 3 to 4 days and would like to know the results call [phone] [facility] with the [facility] Work [facility]: Evaluation note* Diagnosis Onset Date Resolution Status Lymphadenopathy acute [facility] Work Phone: Evaluation noteNo assessment information available [facility] Work Phone: Hospital course Narrative No data available for this section [facility] Work [facility] Hospital Discharge instructions Additional Instructions Follow-up with primary care doctor Return to the ED if develop worsening symptoms or concerns Take the antibiotics as prescribed Take Tylenol or Motrin as needed for shoulder pain use ice pack on your shoulder [facility] Work Phone: Hospital Discharge instructions Additional Instructions Continue with bacitracin qlha-wkn-fjrvsll Return for new or worsening symptoms Call [email or web address] today to schedule [facility] Work [facility]: Hospital Discharge instructions Additional Instructions Follow-up with dentist as soon as [facility] Work [facility]: Hospital Discharge instructions Additional Instructions If your symptoms return/worsen or you develop any further concerns or symptoms please see your doctor or return to the emergency department immediately.[facility] Work Phone: Progress note No data available for this section [facility] Chief Complaint and Reason for Visit Chief Complaint Fever, Chills, Dizzy r10.9 i88.9 Lymphadenopathy personal Reason for Visit Lymphadenopathy Chief Complaint personal Lymphadenopathy Reason for Visit Lymphadenopathy Chief Complaint personal Lymphadenopathy Right shoulder, abdominal pain R shoulder pain NKI, Abd pain Reason for Visit Lymphadenopathy Chief Complaint Right shoulder, abdo shelley pain R shoulder pain NKI, Abd pain flank pain Chief Complaint flank pain burn ico@[employer] Chief Complaint dental pain Chief Complaint dental pain tooth pain Chief Complaint tooth pain Rt hand numbness Chief Complaint tooth pain Rt hand numbness dizzy spells hx of neck inj Chief Complaint discharge Family History No Family History Records Found Relationship Condition Age at Onset Recorded Date/T casper grandparent Diabetes mellitus Unknown Hypertension Unknown father Hypertension Unknown Advance Directives No Advanced Directives Records Found Advance Directive Response Recorded Date/ Time Advance Directives No September 16, 2017 7:17pm Advance Directive Response Recorded Date/ Time Advance Directives No September 16, 2017 6:17pm Summary Purpose Additional Source Comments Care Teams (unrecognized sec tion and content) Team Status: Active Member Role Status Dates Quan Neal II, Attending Provider Active Services Family [facility] Primary Care Provider Active Team Status: Inactive Member Role Status Dates PHYSICIAN NO FAMILY Primary Care Provider Active Ellie Nath PA-C Emergency Provider Active Team Status: Inactive Member Role Status Dates Services Family [facility] Primary Care Provider Active Sabiha Singleton , SUPERVISOR P[employer]ING [employer]- Emergency Provider Active Team Status: Inactive Member Role Status Dates Emy Hall MD Attending Provider Active Services [facility] Primary Care Provider Active Team Status: Active Member Role Status Dates PHYSICIAN NO FAMILY Primary Care Provider Active Team Status: Inactive Member Role Status Dates PHYSICIAN NO FAMILY Primary Care Provider Active Alverto Nath DO Emergency Provider Active Team Status: Inactive Member Role Status Dates PHYSICIAN NO FAMILY Primary Care Provider Active Anthony Hoffman DO Emergency Provider Active Team Status: Inactive Member Role Status Dates Provider Temp Emergency Provider Active PHYSICIAN NO FAMILY Primary Care Provider Active Team Status: Inactive Member Role Status Dates PHYSICIAN NO FAMILY Primary Care Provider Active Carlito Jama MD Emergency Provider Active Team Status: Inactive Member Role Status Dates PHYSICIAN NO FAMILY Primary Care Provider Active Romel Hudson DO Emergency Provider Active Team Status: Inactive Member Role Status Dates PHYSICIAN NO FAMILY Primary Care Provider Active Start: December 01, 2023 End: December 01, 2023 ZACH Marrufo-BC Emergency Provider Active Start: December 01, 2023 End: December 01, 2023 Goals (unrecognized section and content) Goals may be documented in a n alternate sectionGoals may be documented in an alternate sectionGoals may be documented in an alternate sectionGoals may be documented in an alternate sectionGoals may be documented in an alternate sectionGoals may be documented in an alternate sectionGoals may be documented in an alternate sectionGoals may be documented in an alternate sectionGoals may be documented in an alternate sectionGoals may be documented in an alternate sectionGoals may be documented in an alternate section No data available for this section (unrecognized sect ion and content) No Status Records FoundNo Status Records FoundNo Status Records Found INFORMATION SOURCE (unrecogn ized section and content) DATE CREATED AUTHOR 03/03/2024 [facility] DATE CREATED AUTHOR AUTHOR'S ORGANIZ ATION 03/09/2024 [facility] DATE CREATED AUTHOR AUTHOR'S ORGANIZ ATION 04/09/2024 [facility] EPIC FOR RECORDS PERTAINING TO PATIENTS WHO ARE OR HAVE BEEN ENROLLED IN A CHEMICAL DEPENDENCY/SUBSTANCEABUSE PROGRAM, SOME INFORMATION MAY BE OMITTED. This clinical summary was aggregated from multiple sources. Caution should be exercised in using it in the provision of clinical care. This summary normalizes information from multiple sources, and as a consequence, information in this document may materially change the coding, format and clinical context of patient data. In addition, data may be omitted in some cases. CLINICAL DECISIONS SHOULD BE BASED ON THE PRIMARY CLINICAL RECORDS. [employer] provides no warranty or guarantee of the accuracy or completeness of information in this document.
--- NOTE | 2024-06-16 05:12 | XR_ITS ---
The [address] [address] Patient Name: HILTON MARTEL MRN: [id number] date: 1995 Sex: M Assigned Patient Location: ED.MAIN Current Patient Location: ER Accession/Order Number: [id number] Exam Date: 06/16/2024 05:20 Report Date: 06/16/2024 05:44 At the request of: ASHLEE MUSE Procedure: XR chest 1V EXAMINATION: XR chest 1V HISTORY: Hypertension , shortness breath, dizziness, nausea COMPARISON: XR chest 02/17/2024 FINDINGS: LUNGS: Mild haziness and stranding within left lung base. VASCULATURE: No increased pulmonary vasculature. PLEURA: No pneumothorax, effusion, or pleural thickening. CARDIAC: No cardiomegaly or cardiac silhouette abnormality. MEDIASTINUM: No visible mass or adenopathy. BONES: No fracture or visible bone lesion. OTHER: Negative. XR/XR chest 1V IMPRESSION: 1. Underexpanded lungs with mild left basilar atelectasis versus infiltrates; new since prior study. Electronically authenticated by: JUAN CARLOS PAK Date: 06/16/2024 05:44
--- NOTE | 2024-06-16 05:12 | ECG_ITS ---
The [facility] Test Date: 2024-06-16 Pat Name: HILTON MARTEL Department: Room: - Gender: Male [employer]: : 1995 Requested By: [id number] Order Number: [id number] Reading MD: ISMAEL ALLEN Measurements Intervals [place] Rate: 70 P: 38 ME: 142 QRS: 9 QRSD: 80 T: -30 QT: 342 QTc: 362 Interpretive Statements 1100 Sinus rhythm 4068 Nonspecific Twave abnormality 0104 ELECTRODE(S) DETACHED ... Repeat ECG is requested 9130 borderline ECG Compared to ECG 02/17/2024 19:49:56 No significant changes Electronically Signed On 06-16-2024 6:49:24 EDT by ISMAEL ALLEN
--- NOTE | 2024-06-16 05:13 | ED.GENADUL1 ---
HPI HPI - General Adult General Chief complaint: Nausea/Vomiting/Diarrhea Stated complaint: DIZZY Time Seen by Provider: 06/16/24 05:07 Source: patient Mode of arrival: walk-in Limitations: no limitations History of Present Illness HPI narrative: 29-year-old male presents for elevated blood pressure. He was at work and had eaten and then about 30 minutes later he vomited. Subsequently he became dizzy and he had pain in his chest and he went to the medical office and they checked him out and his blood pressure was elevated and he was sent here. He does not have a headache now and does not have any chest pain. He knows he has borderline hypertension but states he has never been officially diagnosed with hypertension and has never been on medication for it. He believes he should be on blood pressure medicine. He is no longer nauseous. Related Data Previous Rx's ?Medication ?Instructions ?Recorded amlodipine 5 mg tablet (Norvasc) 5 mg PO DAILY #20 tabs 06/16/24 Allergies Allergy/AdvReac Type Severity Reaction Status Date / Time No Known Drug Allergies Allergy Verified 06/16/24 05:00 Opioid HPI Opioid Management Most Recent Opioid Data: No Data to Display Review of Systems ROS Narrative A ten point review of systems is negative except as noted above. PFSH PFSH Social History Smoking status: Heavy tobacco smoker Exam Narrative Exam Narrative: Nurses note and vital signs reviewed and patient is not hypoxic. General: The patient appears well and in no apparent distress. Patient is resting comfortably on cart. Skin: Warm, dry, no pallor noted. There is no rash noted. Head: Normocephalic, atraumatic Ears, Nose, Mouth, and Throat: oral mucosa is moist. Nares patent. Cardiovascular: Regular Rate and Rhythm Respiratory: Patient is in no distress, no accessory muscle use, lungs are clear to auscultation, no wheezing, rales or rhonchi Back: non-tender GI: Soft and nontender Musculoskeletal: The patient has no evidence of calf tenderness, no pitting edema, symmetrical pulses noted bilaterally Neurological: A&O, normal speech Psychiatric: Cooperative Constitutional Vital Signs, click to edit/add: Last Vital Signs Temp 98.2 F 06/16/24 05:00 Pulse 69 06/16/24 06:10 Resp 17 06/16/24 06:10 BP 140/92 H 06/16/24 06:00 Pulse Ox 100 06/16/24 05:10 O2 Del Method Room Air 06/16/24 05:00 Course Vital Signs Vital signs: Vital Signs Temperature 98.2 F 06/16/24 05:00 Pulse Rate 76 06/16/24 05:00 Respiratory Rate 18 06/16/24 05:00 Blood Pressure 159/112 H 06/16/24 05:00 Pulse Oximetry 98 06/16/24 05:00 Oxygen Delivery Method Room Air 06/16/24 05:00 Temperature 98.2 F 06/16/24 05:00 Pulse Rate 69 06/16/24 06:10 Respiratory Rate 17 06/16/24 06:10 Blood Pressure 140/92 H 06/16/24 06:00 Pulse Oximetry 100 06/16/24 05:10 Oxygen Delivery Method Room Air 06/16/24 05:00 Medical Decision Making MDM Narrative Medical decision making narrative: The patient presented with hypertension. He has had numerous elevated blood pressures in the past but has never been treated. He was given IV labetalol and his blood pressure is improved and he is discharged home on Norvasc. He was also given a list of primary care physicians and he understands that he needs to follow-up. We also discussed dieting and exercise. Treatment diagnosis and follow-up were discussed with the patient. Differential Diagnosis Differential Diagnosis: Hypertension, acute kidney injury Lab Data Lab results reviewed: Yes I reviewed the patient's lab results Labs: Lab Results 06/16/24 Range/Units 05:05 WBC 5.2 (4.0-11.0) 10^3/uL RBC 4.53 L (4.70-6.10) 10^6/uL Hgb 14.1 (14.0-18.0) g/dL Hct 42.0 (42.0-54.0) % MCV 92.7 (80.0-94.0) fL MCH 31.1 (25.9-34.0) pg MCHC 33.6 (29.9-35.2) g/dL RDW 12.0 (11.0-15.0) % Plt Count 149 L (150-450) 10^3/uL MPV 11.8 (9.5-13.5) fL Neut % (Auto) 46.7 (43.0-75.0) % Lymph % (Auto) 43.9 (20.5-60.0) % [place] % (Auto) 6.9 (1.7-12.0) % Eos % (Auto) 1.7 (0.9-7.0) % Baso % (Auto) 0.4 (0.2-2.0) % Neut # (Auto) 2.4 (1.4-6.5) 10^3/uL Lymph # (Auto) 2.3 (1.2-3.8) 10^3/uL [place] # (Auto) 0.4 (0.3-0.8) 10^3/uL Eos # (Auto) 0.1 (0.0-0.7) 10^3/uL Baso # (Auto) 0.0 (0.0-0.1) 10^3/uL Abs Immat Gran (auto) 0.02 (0.00-0.03) 10^3/uL Imm/Tot Granulo (auto) 0.4 (0.0-0.5) % Sodium 140 (136-145) mmol/L Potassium 4.1 (3.5-5.1) mmol/L Chloride 105 (98-107) mmol/L Carbon Dioxide 28.1 (21.0-32.0) mmol/L Anion Gap 11.0 BUN 12.0 (7.0-18.0) mg/dL Creatinine 1.39 H (0.70-1.30) mg/dL Est GFR ( Amer) >60 (>=60) Est GFR (Non-Af Amer) >60 (>=60) BUN/Creatinine Ratio 8.6 Glucose 98 (74-106) mg/dL Calcium 8.6 (8.5-10.1) mg/dL Troponin I High Sens <4.0 L (4.0-76.1) pg/mL Imaging Data Chest x-ray: Radiologist's impression: ITS Impressions Chest X-Ray 06/16/24 05:12 IMPRESSION: 1. Underexpanded lungs with mild left basilar atelectasis versus infiltrates; new since prior study. Electronically authenticated by: JUAN CARLOS PAK Date: 06/16/2024 05:44 ECG Data Attestation: I personally reviewed and interpreted this ECG as follows: (EKG on my interpretation shows normal sinus rhythm without acute change.) Discharge Plan Discharge Stand Alone Forms: Portal Instructions Chief Complaint: Nausea/Vomiting/Diarrhea Clinical Impression: Hypertension Patient Disposition: Home, Self-Care Time of Disposition Decision: 06:11 Condition: Good Mode of Transportation: Private Vehicle Prescriptions / Home Meds: New amlodipine [Norvasc] 5 mg tablet 5 mg PO DAILY Qty: 20 0RF Print Language: Danish Instructions: Heart Healthy Diet (ED), Low-Sodium Diet (ED), Hypertension (ED) Additional Instructions: See list of primary care physicians Referrals: Physician,Non-Staff, MD [Primary Care Provider] - 1 week
[2024-06-16 05:18] LABS: Basophils Percent Auto 0.4 % (0.2-2.0); Eosinophils Absolute Auto 0.1 10^3/uL (0.0-0.7); Eosinophils Percent Auto 1.7 % (0.9-7.0); Hemoglobin 14.1 g/dL (14.0-18.0); Immature Granulocytes Abs Auto 0.02 10^3/uL (0.00-0.03); Immature Granulocytes Pct Auto 0.4 % (0.0-0.5); Lymphocytes Absolute Auto 2.3 10^3/uL (1.2-3.8); Lymphocytes Percent Auto 43.9 % (20.5-60.0); Mean Corpuscular HGB Conc 33.6 g/dL (29.9-35.2); Mean Corpuscular Hemoglobin 31.1 pg (25.9-34.0); Mean Corpuscular Volume 92.7 fL (80.0-94.0); Mean Platelet Volume 11.8 fL (9.5-13.5); Monocytes Absolute Auto 0.4 10^3/uL (0.3-0.8); Monocytes Percent Auto 6.9 % (1.7-12.0); Neutrophils Absolute Auto 2.4 10^3/uL (1.4-6.5); Neutrophils Percent Auto 46.7 % (43.0-75.0); Platelet Count 149 10^3/uL (150-450); Red Blood Count 4.53 10^6/uL (4.70-6.10); White Blood Count 5.2 10^3/uL (4.0-11.0)
[2024-06-16 05:23] LABS: BUN Creatinine Ratio 8.6; Calcium 8.6 mg/dL (8.5-10.1); Carbon Dioxide 28.1 mmol/L (21.0-32.0); Chloride 105 mmol/L (98-107); Estimated GFR (African America >60 (>=60); Estimated GFR (Non-African Ame >60 (>=60); Glucose 98 mg/dL (74-106); Potassium 4.1 mmol/L (3.5-5.1); Sodium 140 mmol/L (136-145)
[2024-06-16] MEDS: LABETALOL HCL 20 MG/4 ML SYRINGE 10 MG IVP (05:31)
[2024-06-16 05:33] LABS: Troponin I High Sensitivity <4.0 pg/mL (4.0-76.1)
== END 2024-06-16 06:24 | disposition home or self-care (01) ==
PROVIDERS: Emergency Provider Emergency Medicine
DX: I10 Essential (primary) hypertension (principal); F17.200 Nicotine dependence, unspecified, uncomplicated
CPT/HCPCS: 36415; 71045; 80048; 84484; 85025; 93005; 96374; 99285; J1290

== ENCOUNTER 2024-06-17 03:30 | Emergency (ER) | payer OTHER, SELFPAY ==
[2024-06-17] VITALS (13 sets, daily range): BP systolic 114–175; BP diastolic 78–119; PULSE 68–80; TEMP 37.4; O2SAT 98–99; BMI 34.6
--- NOTE | 2024-06-17 03:46 | PC.NURSE ---
PT WAS SEEN IN ER YESTERDAY MORNING FOR HTN. PT STATES NEVER BEEN DX WITH BEFORE. PLACED ON AMLODIPINE AND HAS APPT WITH PCP AT 4PM TODAY. PT STATES WOKE UP FEELING DIZZY AND [place], SAME SYMPTOMS YESTERDAY. PT ALSO C/O BURNING SESATION TO RIGHT FLANK WHICH IS NEW
--- OUTSIDE RECORDS SUMMARY | 2024-06-17 03:47 | XMS_ITS | CCD ---
Author Organization [facility] Care Team Providers Care Colorist Photography Name Role Phone Family Health, Services Primary Care Provider [phone]( [phone] JUAREZ Singleton Emergency Provider MD Emy Hall Attending Provider [phone] DO Quan Neal II Attending Provider NO FAMILY, PHYSICIAN Primary Care Provider Unava ilable ALISA Nath Emergency Provider DO Quan Neal II Attending Provider [facility] Primary Care Provider DO Anthony Hoffman Emergency Provider DO Alverto Nath Emergency Provider NO FAMILY, PHYSICIAN Primary Care Provider Unava ilable Gregg Provider Emergency Provider Unavailable NO FAMILY, PHYSICIAN Primary Care Provider Unava ilable ALISA Nath Emergency Provider [phone] NO FAMILY, PHYSICIAN Primary Care Provider Unava ilable DO Anthony Hoffman Emergency Provider [phone] MD Carlito Jama Emergency Provider NO FAMILY, PHYSICIAN Primary Care Provider Unava ilable DO Anthony Hoffman Emergency Provider DO Romel Hudson Emergency Provider [phone] NO FAMILY, PHYSICIAN Primary Care Provider Unava ilable SRINI SingletonP-BC Sabiha Munoz Emergency Provider Silvio CORRALES Primary Care Physician Travis Valentine Attending Unavailable NO FAMILY, PHYSICIAN Primary Care Unavailable Mani Sabiha E Admitting Unavailable Sabiha Singleton Attending Unavailable NO FAMILY, PHYSICIAN Primary Care Unavailable Carlito aJma Admitting Unavailable Carlito Jama Attending Unavailable NO [...] Medication Allergies] Propensity to adverse reactions (disorder) [facility] Repository Medications Current Medications Medication Drug Class(es) Dates Sig (Normalized) Sig (Original) Albuterol (Eqv-ProAir HFA) 90 mcg/inh inhalation aerosol (1 source) Start: 02-20-2024 take 2 puff(s) by inhalation every six hours Albuterol (Eqv-ProAir HFA) 90 mcg/inh inhalation aerosol 2 puff(s), Inhalation, q6hr Wheezing, 8.5 gm, Refill(s) 0, [facility]/pharmacy #[id number], 183, cm, 02/20/24 16:57:00 EDT, Height/Length [...] 02, 2020 12:00am December 16, 2020 5:49pm [place] (No Known Home Meds) (6 sources) Start: 06-26-[address] (No Kn own Home Meds) Active June 26, 2023 12:00am Start: 08-08-[address] (No Kn own Home Meds) Active August 08, 2022 12:00am Start: 12-10-[address] (No Kn own Home Meds) Active December 10, 2021 4:07pm predniSONE 20 mg oral tablet (1 source) Start: 02-20-2024 End: 02-27-2024 take 3 tablets by mouth once daily predniSONE 20 mg Tab 60 mg = 3 tab(s), Oral, Daily, X 7 day(s), # 21 tab(s), Refills(s) 0, Pharmacy: [facility]/pharmacy #[id number], 183, cm, 02/20/24 16:57:00 EDT, Height/Length [...] Consent for Treatmenton 02-08 Consent for Treatment [id number] Normal [facility] Discharge Instructionson Discharge Instructions [id number] Normal [facility] ED Clinical Summaryon 2023 ED Clinical Summary (Inserted Image. Omaira ble to display) [address] [address] ED Clinical Summary Person Information Name: LOUISA MARTEL Debra/[facility] Age: 28 Years : 1995 Sex: Male Language: Malawian PCP: Silvio CORRALES MD Marital Status: Single [...] 02/20/2024 17:38:53 02/20/2024 17:38:53 02/20/2024 17:38:53 ADDRESS: [facility] [facility] [id number] PHYS DOC NOTES: MEDICAL INFORMATION: Prescriptions Given: New Medications [id number], [address] [place], [place] [id number], [phone] albuterol (Albuterol (Eqv-ProAir HFA) 90 mcg/inh inhalation aerosol) 2 Puffs Inhalation every 6 hours as needed Wheezing. Refills: 0. predniSONE (predniSONE 20 mg Tab) 3 Tablets By Mouth every day for 7 Days. Refills: 0. PATIENT EDUCATION INFORMATION: Instructions: Chronic Back Pain Follow up: With: Address: When: Silvio CORRALES [address] [place] [id number] Business (1) In 3 days 02/23/2024 DIAGNOSIS: Back pain Normal [facility] ED Note-Physicianon 02-20-20 ED Note-Physician Basic Information [...] Inhalation, q6hr Wheezing, 8.5 gm, Refill(s) 0, [facility]/pharmacy #[id number], 183, cm, 02/20/24 16:57:00 EDT, Height/Length Dosing, 119.3, kg, 02/20/24 16:57:00 EDT, Weight Dosing predniSONE, 60 mg = 3 tab(s), Oral, Daily, X 7 day(s), # 21 tab(s), Refills(s) 0, Pharmacy: [facility]/pharm[facility] #[id number], 183, cm, 02/20/24 16:57:00 EDT, Height/Length [...] Silvio CORRALES In 3 days 02/23/[address] [place], [place] [address] Business (1) Additional Instructions: Patient Education Chronic [...] made to ensure accuracy, however, inadvertently computerized glycerine plant operator mistakes may be present. Appropriate healthcare PPE [...] Diagnostic Results No qualifying data available. Normal [facility] Comment on above: Result Comment: Elec tronically [...] them backward. ? Do not sit or inspector wreath one place for long periods of time. [...] prescription pain medicine, or muscle relaxants. Take ojos-bap-rthmvzl and prescription medicines only as told by your health care provider. ? Ask your health care provider if the medicine prescribed to you: ? Requires you to avoid driving or using machinery. ? Can cause constipation. You may need to take these actions to prevent or treat constipation: ? Drink enough fluid to keep your urine pale yellow. ? Take nlai-nly-kzlmmwa or prescription medicines. ? Eat foods that [...] your health (more content not included)... Normal [facility] ED Patient Summaryon 024 ED Patient Summary (Inserted Image. Omaira ble to display) [address] [address] Patient Discharge Instructions Person Information Name: LOUISA MARTEL Age: 28 Years Arrival Date: 02/20/2024 16:45:41 Discharge Diagnosis: Back pain Primary Care Physician: Silvio CORRALES MD Provider Information Primary Provider: Travis Valentine DO Advanced Nursing Service Director:Shaheed Johnson PA-C The exam and treatment you received in the Emergency Department were for an urgent problem and are not intended as complete care. It is important that you follow up with a doctor, nurse practitioner, or physician?s conventions assistant for ongoing care. If your symptoms [...] Follow-up Instructions: With: Address: When: Silvio CORRALES [address] [place], [place] [address] [facility] (1) In 3 days 02/23/2024 In the event that this physician does not participate in your insurance network, please consult with your insurance company to find a nearby participating provider. Patient Education Materials: Chronic Back Pain A MESSAGE TO ALL PATIENTS REGARDING OPIOIDS PRESCRIPTION OPIOIDS: WHAT YOU NEED TO KNOW Prescription opioids can be used to help relieve culhndyd-eb-dpunvy pain and are often prescribed following a [...] be struggling with addiction, tell your health care attendant and ask for guidance or call [facility]?S National Helpline at 6-195-522-HELP. v Source: [place] Department (more content not included)... Normal [facility] Chlamydia/GC/Trich NAAon Chlamydia Trachomotis, GIANLUCA Positive Critically abnormal Negative [facility] Comment on above: Order Comment: SOURC E OF SPECIMEN: urine Performed By: #### G CCHLAMTRI #### [facility] , Neisseria Gonorrhoeae, GIANLUCA Negative Normal Negative [facility] Comment on above: Order Comment: SOURC E OF SPECIMEN: urine Performed By: #### G CCHLAMTRI #### [facility] , Trichomonas GIANLUCA Negative Normal Negative [facility] Comment on above: Order Comment: SOURC E OF SPECIMEN: urine Result Comment: Perf ormed at: =G - [facility] [place] [address] [place], [place] [id number] Booster Pump Oiler: Shanda Quan MD, Phone: [phone] PERFORMED BY: [facility] [address] [place] [address] PATHOLOGIST MEDICAL OFFICE MANAGER AILIN SNYDER M.D. Performed By: #### G CCHLAMTRI #### [facility] , COVID CepheidOrdered By: Katherine Hudson on 06-26-2023 SARS-CoV-2 (COVID-19) Ab IA Ql Negative Negative [facility] Comment on above: This is a duplicate Cepheid Xpert Xpress CoV-2/Flu/RSV Plus RNA by RT-PCR result to be used for statistical tracking purpose only. SARS-CoV-2 (COVID-19) RNA GIANLUCA+probe Ql (Unsp spec) [facility] COVID-19 / Flu A/B / RSV PCR [...] or Cepheid Disclaimer revoked sooner. PERFORMED BY: [facility] [place] [address] PATHOLOGIST MEDICAL OFFICE MANAGER AILIN SNYDER M.D. Normal [facility] Comment on above: Performed By: #### C OVID19 FLU RSV, CEPHEID NEG #### [address] Cepheid COVID PCR Negativeon 06-26-2023 SARS-CoV-2 (COVID-19) RNA GIANLUCA+probe Ql (Unsp spec) Negative Normal Negative [facility] Comment on above: Result Comment: This is a duplicate Cepheid Xpert Xpress CoV-2/Flu/RSV Plus RNA by RT-PCR result to be used for statistical tracking purpose only. PERFORMED BY: [place] [address] PATHOLOGIST MEDICAL OFFICE MANAGER AILIN SNYDER M.D. Performed By: #### C OVID19 FLU RSV, CEPHEID NEG #### [address] ECG 12 lead ECGon 06-26-2023 ECG 12 lead ECG [facility] [place] [address] Electrocardiograph Report Signed Patient: Louisa Martel MR#: [id number] : 1995 Acct:[id number] Age/Sex: 28 / M ADM Date: 06/26/23 Loc: ER Room: Type: [facility] ER Attending Dr: Ordering Provider: Romel Hudson [...] sinus rhythm Confirmed by Romel HUDSON DO ([id number]) on 06/26/2023 11:37:42 AM Referred By: Electronically Signed By:Romel HUDSON DO Transcribed By: MUS Signed By Romel Hudson DO 0 06/26/23 1137 Normal [facility] XR chest 2V*on 06-26-2023 XR chest 2V* [facility] [address] XRay Report Signed Patient: Louisa Martel MR#: [id number] : 1995 Acct:[id number] Age/Sex: 28 / M ADM Date: 06/26/23 Loc: ER Room: Type: [facility] ER Attending Dr: Copies to: Romel [...] Dana Butcher M.D.06/26/2023 8:54 AM Dictation Location: [place] [address] Transcribed By: [facility] 06/26/23 0854 Dictated By: Dana Butcher MD 06/26/23 0853 Signed By: 06/26/23 0854 Normal [facility] Urine culture routineOrdered By: Alverto Nath on 05-10-2022 Bacteria identified Cx Nom (U) No Growth 2 Days [facility] Automated erythrocytes count in urine sediment (number/area)Ordered By: Alverto Nath on 05-08-2022 RBC Auto (Urine sed) [#/Area] None seen [HPF] 0-4 [facility] Automated leukocytes count i n urine sediment (number/area)Ordered By: Alverto Nath on 05-08-2022 WBC Auto (Urine sed) [#/Area] 10-19 [HPF] 0-4 [facility] Bilirubin Test strip Ql (U)O rdered By: Alverto Nath on 05-08-2022 Bilirubin Ql (U) Negative Negative [facility] Color Auto (U)Ordered By: Mike Nath on 05-08-2022 Color (U) Yellow Yellow [facility] Ketones Auto test strip (U) [Mass/Vol]Ordered By: Alverto Nath on 05-08-2022 Ketones (U) [Mass/Vol] Trace Negative [facility] - UrinalysisOrder ed By: Alverto Nath on 05-08-2022 Hyaline casts LM Ql (Urine sed) 0-8 [LPF] 0-8 [facility] Nitrite Test strip Ql (U)Ord ered By: Alverto Nath on 05-08-2022 Nitrite Ql (U) Negative Negative [facility] Protein Auto test strip (U) [Mass/Vol]Ordered By: Alverto Nath on 05-08-2022 Protein (U) [Mass/Vol] Negative Negative [facility] Specific gravity Auto test s trip (U) [Rel density]Ordered By: Alverto Nath on 05-08-2022 Specific gravity (U) [Rel density] 1.010 1.001-1.03 0 [facility] Squamous epithelial cells de tection in urine sediment by light microscopyOrdered By: Alverto Nath on 05-08-2022 Epithelial cells.squamous LM Ql (Urine sed) None seen [HPF] 0-2 [facility] Urine bacteria detection by automated methodOrdered By: Alverto Nath on 05-08-2022 Bacteria Auto Ql (U) None seen None Seen [facility] Urine clarity by refractomet ry automatedOrdered By: Alverto Nath on 05-08-2022 Clarity Refractometry automated (U) Clear Clear [facility] Urine glucose measurement by automated test strip (mass/volume)Ordered By: Alverto Nath on 05-08-2022 Glucose Auto test strip (U) [Mass/Vol] Normal mg/dL Normal [facility] Urine hemoglobin detection b y automated test stripOrdered By: Alverto Nath on 05-08-2022 Hemoglobin Auto test strip Ql (U) Negative Negative [facility] Urine leukocyte esterase det ection by automated test stripOrdered By: Alverto Nath on 05-08-2022 Leukocyte esterase Auto test strip Ql (U) 1+ Negative [facility] Urobilinogen Auto test strip (U) [Mass/Vol]Ordered By: Alverto Nath on 05-08-2022 Urobilinogen (U) [Mass/Vol] Normal mg/dL Normal [facility] pH Auto test strip (U)Ordere d By: Alverto Nath on 05-08-2022 pH (U) 5.5 [pH] 5.0-9.0 [facility] Basophils Auto (Bld) [#/Vol] Ordered By: Alverto Nath on 05-07-2022 Basophils (Bld) [#/Vol] 0.1 10*3/uL 0.0-0.2 [facility] Basophils/100 WBC Auto (Bld) Ordered By: Alverto Nath on 05-07-2022 Basophils/100 WBC (Bld) 0.9 % . F [facility] Blood hemoglobin measurement (mass/volume)Ordered By: Alverto Nath on 05-07-2022 Hemoglobin (Bld) [Mass/Vol] 15.3 g/dL 13.0-17.0 [facility] Blood leukocytes automated c ount (number/volume)Ordered By: Alverto Nath on 05-07-2022 WBC (Bld) [#/Vol] 6.0 10*3/uL 4.5-11.0 [facility] Body fluid albumin measureme nt (mass/volume)Ordered By: Alverto Nath on 05-07-2022 Albumin (Body fld) [Mass/Vol] 4.3 g/dL 3.2-5.5 [facility] Creatinine and Glomerular fi ltration rate.predicted panel (S/P/Bld)Ordered By: Alverto Nath on 05-07-2022 Creatinine [Mass/Vol] 1.35 mg/dL 0.64-1.[address] [facility] Direct bilirubin measurement Ordered By: Alverto Nath on 05-07-2022 Bilirubin.direct [Mass/Vol] mg/dL 0.0-0.4 [facility] Eosinophils Auto (Bld) [#/Vo l]Ordered By: Alverto Nath on 05-07-2022 Eosinophils (Bld) [#/Vol] 0.1 10*3/uL 0.0-0.45 [facility] Eosinophils/100 WBC Auto (Bl d)Ordered By: Alverto Nath on 05-07-2022 Eosinophils/100 WBC (Bld) 1.1 % . [facility] Erythrocyte distribution wid th Auto (RBC) [Ratio]Ordered By: Alverto Nath on 05-07-2022 Erythrocyte distribution width (RBC) [Ratio] 14.1 % 12.0-14.8 [facility] Estimated glomerular filtrat ion rate (GFR) non- AmericanOrdered By: Alverto Nath on 05-07-2022 GFR/1.73 sq M.predicted among non-blacks MDRD (S/P/Bld) [Vol rate/Area] > 60 mL/Min [facility] Globulin Calc (S) [Mass/Vol] Ordered By: Alverto Nath on 05-07-2022 Globulin (S) [Mass/Vol] 3.1 g/dL [facility] Hematocrit Auto (Bld) [Volum e fraction]Ordered By: Alverto Nath on 05-07-2022 Hematocrit (Bld) [Volume fraction] 46.1 % 38.8-50.0 [facility] Laboratory - Chemistry and C hemistry - challengeOrdered By: Alverto Nath on 05-07-2022 Lipase [Catalytic activity/Vol] 30.0 U/L 22-51 [facility] Laboratory - Hematology and Cell countsOrdered By: Alverto Nath on 05-07-2022 Nucleated RBC/100 WBC (Bld) [Ratio] 0.0 % 0-0.5 [facility] Lymphocytes Auto (Bld) [#/Vo l]Ordered By: Alverto Nath on 05-07-2022 Lymphocytes (Bld) [#/Vol] 2.1 10*3/uL 1.00-4.8 [facility] Lymphocytes/100 WBC Auto (Bl d)Ordered By: Alverto Nath on 05-07-2022 Lymphocytes/100 WBC (Bld) 35.2 % . [facility] MCH Auto (RBC) [Entitic mass ]Ordered By: Alverto Nath on 05-07-2022 MCH (RBC) [Entitic mass] 31.5 pg 27.5-35.2 [facility] MCHC Auto (RBC) [Mass/Vol]Or dered By: Alverto Nath on 05-07-2022 MCHC (RBC) [Mass/Vol] 33.2 g/dL 32.5-35.[address] [facility] MCV Auto (RBC) [Entitic vol] Ordered By: Alverto Nath on 05-07-2022 MCV (RBC) [Entitic vol] 94.9 fL 83.5-101 F [facility] Monocytes Auto (Bld) [#/Vol] Ordered By: Alverto Nath on 05-07-2022 Monocytes (Bld) [#/Vol] 0.4 10*3/uL 0.0-0.8 [facility] Monocytes/100 WBC Auto (Bld) Ordered By: Alverto Nath on 05-07-2022 Monocytes/100 WBC (Bld) 7.0 % . F [facility] Neutrophils Auto (Bld) [#/Vo l]Ordered By: Alverto Nath on 05-07-2022 Neutrophils (Bld) [#/Vol] 3.4 10*3/uL 1.8-7.7 [facility] Neutrophils/100 WBC Auto (Bl d)Ordered By: Alverto Nath on 05-07-2022 Neutrophils/100 WBC (Bld) 55.8 % . [facility] No Panel InformationOrdered By: Alverto Nath on 05-07-2022 Estimated GFR () > 60 mL/Min [facility] Comment on above: GFR estimated refere nce range: According to KDOQI guidelines, <60 ml/min/1.73m2 is sufficient to diagnose a patient with chronic kidney disease. Pharmacy Creatinine Clearance (Chem 109.81 [facility] Platelet mean volume Auto (B ld) [Entitic vol]Ordered By: Alverto Nath on 05-07-2022 Platelet mean volume (Bld) [Entitic vol] 10.0 fL 6.6-10.1 [facility] Platelets Auto (Bld) [#/Vol] Ordered By: Alverto Nath on 05-07-2022 Platelets (Bld) [#/Vol] 128 10*3/uL 150-450 [facility] Protein [Mass/volume] in Ser um or PlasmaOrdered By: Alverto Nath on 05-07-2022 Protein [Mass/Vol] 7.4 g/dL 6.1-7.9 [facility] RBC Auto (Bld) [#/Vol]Ordere d By: Alverto Nath on 05-07-2022 RBC (Bld) [#/Vol] 4.86 10*6/uL 3.90-5.60 [facility] Serum or plasma alanine flores otransferase measurement without P-5'-P (enzymatic activiOrdered By: Alverto Nath on 05-07-2022 ALT No additional P-5'-P [Catalytic activity/Vol] 57 U/L 10-60 [facility] Serum or plasma albumin/glob ulin mass ratioOrdered By: Alverto Nath on 05-07-2022 Albumin/Globulin [Mass ratio] 1.4 {ratio} [facility] Serum or plasma alkaline rema sphatase measurement (enzymatic activity/volume)Ordered By: Alverto Nath on 05-07-2022 ALP [Catalytic activity/Vol] 59 U/L 32-92 [facility] Serum or plasma aspartate am inotransferase measurement (enzymatic activity/volume)Ordered By: Alverto Nath on 05-07-2022 AST [Catalytic activity/Vol] 29 U/L 10-42 [facility] Serum or plasma calcium levi urement (mass/volume)Ordered By: Alverto Nath on 05-07-2022 Calcium [Mass/Vol] 9.6 mg/dL 8.2-10.2 [facility] Serum or plasma chloride falguni surement (moles/volume)Ordered By: Alverto Nath on 05-07-2022 Chloride [Moles/Vol] 102 mmol/L 95-114 [facility] Serum or plasma glucose levi urement (mass/volume)Ordered By: Alverto Nath on 05-07-2022 Glucose [Mass/Vol] 99 mg/dL 70-100 [facility] Comment on above: ADA recommended refe rence range Random Glucose Reference Range is dependent on time and content of last meal. Glucose of more than 200 mg/dL in a nonstressed, ambulatory subject supports the diagnosis of Diabetes Mellitus. Serum or plasma non-glucuron idated bilirubin measurement (mass/volume)Ordered By: Alverto Nath on 05-07-2022 Bilirubin.indirect [Mass/Vol] TNP [facility] Comment on above: Test not performed Serum or plasma potassium me asurement (moles/volume)Ordered By: Alverto Nath on 05-07-2022 Potassium [Moles/Vol] 3.7 mmol/L 3.5-5.[address] [facility] Serum or plasma sodium measu rement (moles/volume)Ordered By: Alverto Nath on 05-07-2022 Sodium [Moles/Vol] 136 mmol/L 136-146 [facility] Serum or plasma total biliru bin measurement (mass/volume)Ordered By: Alverto Nath on 05-07-2022 Bilirubin [Mass/Vol] 0.4 mg/dL 0.3-1.2 [facility] Serum or plasma total carbon dioxide measurement (moles/volume)Ordered By: Alverto Nath on 05-07-2022 CO2 [Moles/Vol] 25.3 mmol/L 22.0-30.0 [facility] Serum or plasma urea nitroge n measurement (mass/volume)Ordered By: Alverto Nath on 05-07-2022 Urea nitrogen [Mass/Vol] 13 mg/dL 9 [facility] Urine culture routineOrdered By: PROVIDER TEMP on 05-03-2022 Bacteria identified Cx Nom (U) 2 Days [facility] Automated erythrocytes count in urine sediment (number/area)Ordered By: PROVIDER TEMP on 05-01-2022 RBC Auto (Urine sed) [#/Area] 0-1 [HPF] 0-4 [facility] Automated leukocytes count i n urine sediment (number/area)Ordered By: PROVIDER TEMP on 05-01-2022 WBC Auto (Urine sed) [#/Area] 10-19 [HPF] 0-4 [facility] Bilirubin Test strip Ql (U)O rdered By: PROVIDER TEMP on 05-01-2022 Bilirubin Ql (U) Negative Negative [facility] Color Auto (U)Ordered By: NADINE HURTADO TEMP on 05-01-2022 Color (U) Yellow Yellow [facility] Ketones Auto test strip (U) [Mass/Vol]Ordered By: PROVIDER TEMP on 05-01-2022 Ketones (U) [Mass/Vol] Trace Negative Fi [facility] Laboratory - UrinalysisOrder ed By: PROVIDER TEMP on 05-01-2022 Hyaline casts LM Ql (Urine sed) 0-8 [LPF] 0-8 [facility] Nitrite Test strip Ql (U)Ord ered By: PROVIDER TEMP on 05-01-2022 Nitrite Ql (U) Negative Negative [facility] Protein Auto test strip (U) [Mass/Vol]Ordered By: PROVIDER TEMP on 05-01-2022 Protein (U) [Mass/Vol] Negative [facility] Specific gravity Auto test s trip (U) [Rel density]Ordered By: PROVIDER TEMP on 05-01-2022 Specific gravity (U) [Rel density] 1.021 1.001-1.03 0 [facility] Squamous epithelial cells de tection in urine sediment by light microscopyOrdered By: PROVIDER TEMP on 05-01-2022 Epithelial cells.squamous LM Ql (Urine sed) 0-1 [HPF] 0-2 [facility] Urine bacteria detection by automated methodOrdered By: PROVIDER TEMP on 05-01-2022 Bacteria Auto Ql (U) None seen None Seen [facility] Urine clarity by refractomet ry automatedOrdered By: PROVIDER TEMP on 05-01-2022 Clarity Refractometry automated (U) Clear Clear [facility] Urine culture routineOrdered By: PROVIDER TEMP on 05-01-2022 Bacteria identified Cx Nom (U) 2 Days [facility] Urine glucose measurement by automated test strip (mass/volume)Ordered By: PROVIDER TEMP on 05-01-2022 Glucose Auto test strip (U) [Mass/Vol] Normal mg/dL Normal [facility] Urine hemoglobin detection b y automated test stripOrdered By: PROVIDER TEMP on 05-01-2022 Hemoglobin Auto test strip Ql (U) Negative Negative [facility] Urine leukocyte esterase det ection by automated test stripOrdered By: PROVIDER TEMP on 05-01-2022 Leukocyte esterase Auto test strip Ql (U) 2+ Negative [facility] Urobilinogen Auto test strip (U) [Mass/Vol]Ordered By: PROVIDER TEMP on 05-01-2022 Urobilinogen (U) [Mass/Vol] Normal mg/dL Normal [facility] pH Auto test strip (U)Ordere d By: PROVIDER TEMP on 05-01-2022 pH (U) 5.5 [pH] 5.0-9.0 [facility] Basophils Auto (Bld) [#/Vol] Ordered By: Quan Neal on 03-11-2022 Basophils (Bld) [#/Vol] 0.0 10*3/uL 0.0-0.2 [facility] Basophils/100 WBC Auto (Bld) Ordered By: Quan Neal on 03-11-2022 Basophils/100 WBC (Bld) 0.9 % [facility] Blood hemoglobin measurement (mass/volume)Ordered By: Quan Neal on 03-11-2022 Hemoglobin (Bld) [Mass/Vol] 15.0 g/dL 13.0-17.0 [facility] [facility] Blood leukocytes automated c ount (number/volume)Ordered By: Quan Neal on 03-11-2022 WBC (Bld) [#/Vol] 4.2 10*3/uL 4.5-11.0 [facility] Body fluid albumin measureme nt (mass/volume)Ordered By: Quan Neal on 03-11-2022 Albumin (Body fld) [Mass/Vol] 4.0 g/dL 3.2-5.5 [facility] Creatinine and Glomerular fi ltration rate.predicted panel (S/P/Bld)Ordered By: Quan Neal on 03-11-2022 Creatinine [Mass/Vol] 1.37 mg/dL 0.64-1.[address] [facility] Eosinophils Auto (Bld) [#/Vo l]Ordered By: Quan Neal on 03-11-2022 Eosinophils (Bld) [#/Vol] 0.1 10*3/uL 0.0-0.45 [facility] Eosinophils/100 WBC Auto (Bl d)Ordered By: Quan Neal on 03-11-2022 Eosinophils/100 WBC (Bld) 2.0 % [facility] Erythrocyte distribution wid th Auto (RBC) [Ratio]Ordered By: Quan Neal on 03-11-2022 Erythrocyte distribution width (RBC) [Ratio] 14.0 % 12.0-14.8 [facility] Estimated glomerular filtrat ion rate (GFR) non- AmericanOrdered By: Quan Neal on 03-11-2022 GFR/1.73 sq M.predicted among non-blacks MDRD (S/P/Bld) [Vol rate/Area] > 60 mL/[facility] Globulin Calc (S) [Mass/Vol] Ordered By: Quan Neal on 03-11-2022 Globulin (S) [Mass/Vol] 2.7 g/dL [facility] Hematocrit Auto (Bld) [Volum e fraction]Ordered By: Quan Neal on 03-11-2022 Hematocrit (Bld) [Volume fraction] 44.3 % 38.8-50.0 [facility] Laboratory - Hematology and Cell countsOrdered By: Quan Neal on 03-11-2022 Nucleated RBC/100 WBC (Bld) [Ratio] 0.1 % 0-0.5 [facility] Lactate dehydrogenase measur ement (enzymatic activity/volume)Ordered By: Quan Neal on 03-11-2022 LDH (Unsp spec) [Catalytic activity/Vol] 175 U/L 45-190 [facility] Lymphocytes Auto (Bld) [#/Vo l]Ordered By: Quan Neal on 03-11-2022 Lymphocytes (Bld) [#/Vol] 1.6 10*3/uL 1.00-4.8 [facility] Lymphocytes/100 WBC Auto (Bl d)Ordered By: Quan Neal on 03-11-2022 Lymphocytes/100 WBC (Bld) 38.0 % [facility] MCH Auto (RBC) [Entitic mass ]Ordered By: Quan Neal on 03-11-2022 MCH (RBC) [Entitic mass] 31.5 pg 27.5-35.2 [facility] MCHC Auto (RBC) [Mass/Vol]Or dered By: Quan Neal on 03-11-2022 MCHC (RBC) [Mass/Vol] 33.8 g/dL 32.5-35.[address] [facility] MCV Auto (RBC) [Entitic vol] Ordered By: Quan Neal on 03-11-2022 MCV (RBC) [Entitic vol] 93.2 fL 83.5-101 [facility] Monocytes Auto (Bld) [#/Vol] Ordered By: Quan Neal on 03-11-2022 Monocytes (Bld) [#/Vol] 0.2 10*3/uL 0.0-0.8 [facility] Monocytes/100 WBC Auto (Bld) Ordered By: Quan Neal on 03-11-2022 Monocytes/100 WBC (Bld) 5.1 % [facility] Neutrophils Auto (Bld) [#/Vo l]Ordered By: Quan Neal on 03-11-2022 Neutrophils (Bld) [#/Vol] 2.2 10*3/uL 1.8-7.7 [facility] Neutrophils/100 WBC Auto (Bl d)Ordered By: Quan Neal on 03-11-2022 Neutrophils/100 WBC (Bld) 54.0 % [facility] No Panel InformationOrdered By: Quan Neal on 03-11-2022 Estimated GFR () > 60 mL/Min [facility] Comment on above: GFR estimated refere nce range: According to KDOQI guidelines, <60 ml/min/1.73m2 is sufficient to diagnose a patient with chronic kidney disease. Pharmacy Creatinine Clearance (Chem 109.54 [facility] Platelet mean volume Auto (B ld) [Entitic vol]Ordered By: Quan Neal on 03-11-2022 Platelet mean volume (Bld) [Entitic vol] 9.8 fL 6.6-10.1 [facility] Platelets Auto (Bld) [#/Vol] Ordered By: Quan Neal on 03-11-2022 Platelets (Bld) [#/Vol] 134 10*3/uL 150-450 [facility] Protein [Mass/volume] in Ser um or PlasmaOrdered By: Quan Neal on 03-11-2022 Protein [Mass/Vol] 6.7 g/dL 6.1-7.9 [facility] RBC Auto (Bld) [#/Vol]Ordere d By: Quan Neal on 03-11-2022 RBC (Bld) [#/Vol] 4.76 10*6/uL 3.90-5.60 [facility] Serum or plasma alanine flores otransferase measurement without P-5'-P (enzymatic activiOrdered By: Quan Neal on 03-11-2022 ALT No additional P-5'-P [Catalytic activity/Vol] 47 U/L 10-60 [facility] Serum or plasma albumin/glob ulin mass ratioOrdered By: Quan Neal on 03-11-2022 Albumin/Globulin [Mass ratio] 1.5 {ratio} [facility] Serum or plasma alkaline rema sphatase measurement (enzymatic activity/volume)Ordered By: Quan Neal on 03-11-2022 ALP [Catalytic activity/Vol] 62 U/L 32-92 [facility] Serum or plasma aspartate am inotransferase measurement (enzymatic activity/volume)Ordered By: Quan Neal on 03-11-2022 AST [Catalytic activity/Vol] 28 U/L 10-42 [facility] Serum or plasma calcium levi urement (mass/volume)Ordered By: Quan Neal on 03-11-2022 Calcium [Mass/Vol] 8.9 mg/dL 8.2-10.2 [facility] Serum or plasma chloride falguni surement (moles/volume)Ordered By: Quan Neal on 03-11-2022 Chloride [Moles/Vol] 103 mmol/L 95-114 [facility] Serum or plasma glucose levi urement (mass/volume)Ordered By: Quan Neal on 03-11-2022 Glucose [Mass/Vol] 114 mg/dL 70-100 [facility] Comment on above: ADA recommended refe [...] on 03-11-2022 Potassium [Moles/Vol] 4.0 mmol/L 3.5-5.[address] [facility] Serum or plasma sodium measu rement (moles/volume)Ordered By: Quan Neal on 03-11-2022 Sodium [Moles/Vol] 138 mmol/L 136-146 [facility] Serum or plasma total biliru bin measurement (mass/volume)Ordered By: Quan Neal on 03-11-2022 Bilirubin [Mass/Vol] 0.9 mg/dL 0.3-1.2 [facility] Serum or plasma total carbon dioxide measurement (moles/volume)Ordered By: Quan Neal on 03-11-2022 CO2 [Moles/Vol] 25.0 mmol/L 22.0-30.0 [facility] Serum or plasma urea nitroge n measurement (mass/volume)Ordered By: Quan Neal on 03-11-2022 Urea nitrogen [Mass/Vol] 7 mg/dL 9-23 [facility] HIV 1 RNA viral load measure ment (log number/volume)Ordered By: Ellie Nath on 02-07-2022 HIV 1 RNA GIANLUCA+probe (Unsp spec) [Log #/Vol] See comment [facility] Comment on above: Result Units: log10c opy/mLUnable to calculate result since non-numeric resultobtained for component test.Performed at: [facility] [place], [place] [id number] Director: Jackelin Hahn MD, Phone: [phone] Result Units: log10c opy/mL Unable to calculate result since non-numeric result obtained for component test. Performed at: [facility] [address] [place], [place] [id number] [employer] Oiler: Jackelin Hahn MD, Phone: [phone] HIV 1 RNA viral load measure ment by probe and target amplification method (number/volOrdered By: Ellie Nath on 02-07-2022 HIV 1 RNA GIANLUCA+probe (Unsp spec) [#/Vol] <20 copies/mL [facility] Comment on above: HIV-1 RNA not detect [...] p24 Ag IA Ql Non-Reactive Non Reactive [facility] Comment on above: HIV NegativeHIV-1/HI V-2 antibodies and HIV-1 p24 antigen were NOTdetected. There is no laboratory evidence of HIV infection.Performed at: [facility] [place] [id number] Director: Josh Carvalho PhD, Phone: [phone] HIV Negative HIV-1/HIV-2 antibodies and HIV-1 p24 antigen were NOT detected. There is no laboratory evidence of HIV infection. Performed at: [facility] [id number] [employer]: Josh Carvalho PhD, Phone: [phone] No Panel InformationOrdered By: Ellie Nath on 02-07-2022 RPR Quantitative Confirmation 1:2 NonRea<1:1 [facility] Reagin Ab [Presence] in Seru m by RPROrdered By: Ellie Nath on 02-07-2022 Reagin Ab RPR Ql (S) Reactive Non Reactive [facility] Serum Treponema pallidum ant ibody detection by immunofluorescenceOrdered By: Ellie Nath on 02-07-2022 T. pallidum Ab IF Ql (S) Reactive Non Reactive [facility] Comment on above: Performed at: [facility] [place] [id number] Director: Josh Carvalho PhD, Phone: [phone] Performed at: [facility] [address] [place] [id number] [employer]: Josh Carvalho PhD, Phone: [phone] Treponema pallidum IgG+IgM A b [Presence] in Serum by ImmunoassayOrdered By: Ellie Nath on 02-07-2022 T. pallidum IgG+IgM IA Ql (S) Reactive Non Reactive [facility] Laboratory - CoagulationOrde red By: Silvio Tovar on 11-21-2021 PT Coag (PPP) [Time] 12.5 s 9.0-12.9 [facility] Platelet poor plasma interna tional normalized ratio (INR) by coagulation assay (relatOrdered By: Silvio Tovar on 11-21-2021 INR Coag (PPP) [Relative time] 1.1 {INR} [facility] Comment on above: INR Therapeutic Rang e [...] 11-21-2021 Platelets (Bld) [#/Vol] 131 10*3/uL 150-450 [facility] COVID-19 SOFIAOrdered By: Namrata Singleton on 11-13-2021 SARS-CoV+SARS-CoV-2 (COVID-19) Ag IA.rapid Ql (Resp) Positive Negative [facility] Comment on above: This is a duplicate Mirela SARS Antigen (MICHAEL) result to be used for statistical tracking purpose only. No Panel InformationOrdered By: Sabiha Singleton on 11-13-2021 SARS Antigen (LFIA) [facility] Vital Signs Date Time Vital Sign Value Performing Clinician Facility 02-20-2024 16:54-0400 Body temperature 98.06 [degF] Travis Valentine [facility] 02-20-2024 16:54-0400 Diastolic blood pressure 101 mm[Hg] Travis Valentine [facility] 02-20-2024 16:54-0400 Heart rate 79 /min Travis Valentine [facility] 02-20-2024 16:54-0400 Respiratory rate 20 /min Travis Valentine [facility] 02-20-2024 16:54-0400 SaO2% (BldA) [Mass fraction] 99 % Travis Serge [facility] 02-20-2024 16:54-0400 Systolic blood pressure 152 mm[Hg] Travis Serge [facility] 12-01-2023 12:20-0500 Body height 182.88 cm PHYSICIAN NO [facility] 12-01-2023 12:20-0500 Body temperature 97.9 [degF] PHYSICIAN NO [facility] 12-01-2023 12:20-0500 Body weight 114.05 kg PHYSICIAN NO [facility] 12-01-2023 12:20-0500 Diastolic blood pressure 93 mm[Hg] PHYSICIAN NO [facility] 12-01-2023 12:20-0500 Heart rate 82 /min PHYSICIAN NO [facility] 12-01-2023 12:20-0500 Respiratory rate 16 /min PHYSICIAN NO [facility] 12-01-2023 12:20-0500 SaO2% (BldA) [Mass fraction] 98 % PHYSICIAN NO [facility] 12-01-2023 12:20-0500 Systolic blood pressure 144 mm[Hg] PHYSICIAN NO [facility] 06-26-2023 10:04-0400 Body temperature 98.3 [degF] PHYSICIAN NO [facility] 06-26-2023 10:04-0400 Diastolic blood pressure 91 mm[Hg] PHYSICIAN NO [facility] 06-26-2023 10:04-0400 Heart rate 85 /min PHYSICIAN NO [facility] 06-26-2023 10:04-0400 Respiratory rate 18 /min PHYSICIAN NO [facility] 06-26-2023 10:04-0400 SaO2% (BldA) [Mass fraction] 96 % PHYSICIAN NO [facility] 06-26-2023 10:04-0400 Systolic blood pressure 137 mm[Hg] PHYSICIAN NO [facility] 06-26-2023 08:08-0400 Body height 182.88 cm PHYSICIAN NO [facility] 06-26-2023 08:08-0400 Body weight 117.15 kg PHYSICIAN NO [facility] 05-14-2023 23:36-0400 Diastolic blood pressure 92 mm[Hg] PHYSICIAN NO [facility] 05-14-2023 23:36-0400 Systolic blood pressure 151 mm[Hg] PHYSICIAN NO [facility] 05-14-2023 23:31-0400 Body height 182.88 cm PHYSICIAN NO [facility] 05-14-2023 23:31-0400 Body temperature 98.4 [degF] PHYSICIAN NO [facility] 05-14-2023 23:31-0400 Body weight 115.66 kg PHYSICIAN NO [facility] 05-14-2023 23:31-0400 Heart rate 94 /min PHYSICIAN NO [facility] 05-14-2023 23:31-0400 Respiratory rate 18 /min PHYSICIAN NO [facility] 05-14-2023 23:31-0400 SaO2% (BldA) [Mass fraction] 98 % PHYSICIAN NO [facility] 04-14-2023 00:44-0400 Body height 182.88 cm PHYSICIAN NO [facility] 04-14-2023 00:44-0400 Body temperature 98 [degF] PHYSICIAN NO [facility] 04-14-2023 00:44-0400 Body weight 111.13 kg PHYSICIAN NO [facility] 04-14-2023 00:44-0400 Diastolic blood pressure 120 mm[Hg] PHYSICIAN NO [facility] 04-14-2023 00:44-0400 Heart rate 114 /min PHYSICIAN NO [facility] 04-14-2023 00:44-0400 Respiratory rate 22 /min PHYSICIAN NO [facility] 04-14-2023 00:44-0400 SaO2% (BldA) [Mass fraction] 98 % PHYSICIAN NO [facility] 04-14-2023 00:44-0400 Systolic blood pressure 177 mm[Hg] PHYSICIAN NO [facility] 01-28-2023 23:27-0400 Diastolic blood pressure 87 mm[Hg] PHYSICIAN NO [facility] 01-28-2023 23:27-0400 Heart rate 98 /min PHYSICIAN NO [facility] 01-28-2023 23:27-0400 Respiratory rate 20 /min PHYSICIAN NO [facility] 01-28-2023 23:27-0400 SaO2% (BldA) [Mass fraction] 98 % PHYSICIAN NO [facility] 01-28-2023 23:27-0400 Systolic blood pressure 189 mm[Hg] PHYSICIAN NO [facility] 01-28-2023 23:26-0400 Body height 182.88 cm PHYSICIAN NO [facility] 01-28-2023 23:26-0400 Body weight 115.66 kg PHYSICIAN NO [facility] 08-08-2022 12:37-0400 Body temperature 98.4 [degF] Provider [facility] 08-08-2022 12:33-0400 Body height 182.88 cm Provider [facility] 08-08-2022 12:33-0400 Body weight 106.59 kg Provider [facility] 08-08-2022 12:33-0400 Diastolic blood pressure 86 mm[Hg] Provider [facility] 08-08-2022 12:33-0400 Heart rate 94 /min Provider [facility] 08-08-2022 12:33-0400 Respiratory rate 20 /min Provider [facility] 08-08-2022 12:33-0400 SaO2% (BldA) [Mass fraction] 100 % Provider [facility] 08-08-2022 12:33-0400 Systolic blood pressure 151 mm[Hg] Provider [facility] 05-08-2022 00:01-0400 Diastolic blood pressure 93 mm[Hg] PHYSICIAN NO [facility] 05-08-2022 00:01-0400 Heart rate 77 /min PHYSICIAN NO [facility] 05-08-2022 00:01-0400 Respiratory rate 20 /min PHYSICIAN NO [facility] 05-08-2022 00:01-0400 SaO2% (BldA) [Mass fraction] 97 % PHYSICIAN NO [facility] 05-08-2022 00:01-0400 Systolic blood pressure 143 mm[Hg] PHYSICIAN NO [facility] 05-07-2022 22:12-0400 Body height 182.88 cm PHYSICIAN NO [facility] 05-07-2022 22:12-0400 Body mass index (BMI) [Ratio] 35.8 kg/m2 PHYSICIAN NO [facility] 05-07-2022 22:12-0400 Body temperature 98.2 [degF] PHYSICIAN NO [facility] 05-07-2022 22:12-0400 Body weight 119.74 kg PHYSICIAN NO [facility] 05-01-2022 12:37-0400 Body height 182.88 cm PHYSICIAN NO [facility] 05-01-2022 12:37-0400 Body mass index (BMI) [Ratio] 36 kg/m2 PHYSICIAN NO [facility] 05-01-2022 12:37-0400 Body temperature 98.7 [degF] PHYSICIAN NO [facility] 05-01-2022 12:37-0400 Body weight 120.45 kg PHYSICIAN NO [facility] 05-01-2022 12:37-0400 Diastolic blood pressure 94 mm[Hg] PHYSICIAN NO [facility] 05-01-2022 12:37-0400 Heart rate 73 /min PHYSICIAN NO [facility] 05-01-2022 12:37-0400 Respiratory rate 20 /min PHYSICIAN NO [facility] 05-01-2022 12:37-0400 SaO2% (BldA) [Mass fraction] 99 % PHYSICIAN NO [facility] 05-01-2022 12:37-0400 Systolic blood pressure 146 mm[Hg] PHYSICIAN NO [facility] 03-12-2022 14:29-0400 Body temperature 97.9 [degF] PHYSICIAN NO [facility] 03-12-2022 14:29-0400 Body weight 122.01 kg PHYSICIAN NO [facility] 03-12-2022 14:29-0400 Diastolic blood pressure 89 mm[Hg] PHYSICIAN NO [facility] 03-12-2022 14:29-0400 Heart rate 79 /min PHYSICIAN NO [facility] 03-12-2022 14:29-0400 Respiratory rate 16 /min PHYSICIAN NO [facility] 03-12-2022 14:29-0400 SaO2% (BldA) [Mass fraction] 96 % PHYSICIAN NO [facility] 03-12-2022 14:29-0400 Systolic blood pressure 136 mm[Hg] PHYSICIAN NO [facility] 02-07-2022 14:58-0400 Body height 182.88 cm [facility] Work Phone: [facility] 02-07-2022 14:58-0400 Body mass index (BMI) [Ratio] 34.5 kg/m2 [facility] Work Phone: [facility] 02-07-2022 14:58-0400 Body temperature 98.8 [degF] [facility] Work Phone: [facility] 02-07-2022 14:58-0400 Body weight 115.66 kg [facility] Work Phone: [facility] 02-07-2022 14:58-0400 Diastolic blood pressure 99 mm[Hg] [facility] Work Phone: [facility] 02-07-2022 14:58-0400 Heart rate 82 /min [facility] Work Phone: [facility] 02-07-2022 14:58-0400 Respiratory rate 20 /min [facility] Work Phone: [facility] 02-07-2022 14:58-0400 SaO2% (BldA) [Mass fraction] 97 % [facility] Work Phone: [facility] 02-07-2022 14:58-0400 Systolic blood pressure 143 mm[Hg] [facility] Work Phone: [facility] 12-10-2021 15:19-0500 Body temperature 98 [degF] [facility] Work Phone: [facility] 12-10-2021 15:19-0500 Body weight 122.65 kg [facility] Work Phone: [facility] 12-10-2021 15:19-0500 Diastolic blood pressure 84 mm[Hg] [facility] Work Phone: [facility] 12-10-2021 15:19-0500 Heart rate 112 /min [facility] Work Phone: [facility] 12-10-2021 15:19-0500 Respiratory rate 20 /min [facility] Work Phone: [facility] 12-10-2021 15:19-0500 SaO2% (BldA) [Mass fraction] 97 % [facility] Work Phone: [facility] 12-10-2021 15:19-0500 Systolic blood pressure 149 mm[Hg] [facility] Work Phone: [facility] 12-10-2021 15:07-0500 Body height 182.88 cm [facility] Work Phone: [facility] 11-21-2021 11:59-0500 Diastolic blood pressure 86 mm[Hg] [facility] Work Phone: [facility] 11-21-2021 11:59-0500 Heart rate 74 /min [facility] Work Phone: [facility] 11-21-2021 11:59-0500 Respiratory rate 16 /min [facility] Work Phone: [facility] 11-21-2021 11:59-0500 SaO2% (BldA) [Mass fraction] 99 % [facility] Work Phone: [facility] 11-21-2021 11:59-0500 Systolic blood pressure 139 mm[Hg] [facility] Work Phone: [facility] 11-21-2021 10:55-0500 Body height 182.88 cm [facility] Work Phone: [facility] 11-21-2021 10:55-0500 Body mass index (BMI) [Ratio] 33.9 kg/m2 [facility] Work Phone: [facility] 11-21-2021 10:55-0500 Body weight 113.39 kg [facility] Work Phone: [facility] 11-13-2021 16:25-0500 Body height 182.88 cm [facility] Work Phone: [facility] 11-13-2021 16:25-0500 Body mass index (BMI) [Ratio] 33.9 kg/m2 [facility] Work Phone: [facility] 11-13-2021 16:25-0500 Body temperature 98.9 [degF] [facility] Work Phone: [facility] 11-13-2021 16:25-0500 Body weight 113.39 kg [facility] Work Phone: [facility] 11-13-2021 16:25-0500 Diastolic blood pressure 84 mm[Hg] [facility] Work Phone: [facility] 11-13-2021 16:25-0500 Heart rate 96 /min [facility] Work Phone: [facility] 11-13-2021 16:25-0500 Respiratory rate 18 /min [facility] Work Phone: [facility] 11-13-2021 16:25-0500 SaO2% (BldA) [Mass fraction] 98 % [facility] Work Phone: [facility] 11-13-2021 16:25-0500 Systolic blood pressure 163 mm[Hg] [facility] Work Phone: [facility] Encounters Encounter Date Encounter Type Care Provider Facility Start: 04-07-2024 End: 04-07-2024 ambulatory WALT ARREOLA Not Available Start: 02-20-2024 End: 02-20-2024 Emergency department patient visit Travis Valentine [place] [place]: 02-20-2024 End: 02-20-2024 Emergency department patient visit Travis Valetnine [facility] Start: 12-01-2023 End: 12-01-2023 Emergency department patient visit PHYSICIAN NO FAMILY Facility:[facility] Start: 12-01-2023 End: 12-01-2023 Emergency department patient visit PHYSICIAN NO [facility] Work Phone: Start: 06-26-2023 End: 06-26-2023 Emergency department patient visit PHYSICIAN NO [facility] Work Phone: Start: 05-15-2023 End: 05-15-2023 Emergency department patient visit PHYSICIAN NO FAMILY Facility:[facility] Start: 05-14-2023 End: 05-14-2023 Emergency department patient visit PHYSICIAN NO [facility] Work Phone: Start: 04-14-2023 End: 04-14-2023 Emergency department patient visit PHYSICIAN NO FAMILY Facility:[facility] Start: 04-14-2023 End: 04-14-2023 Emergency department patient visit PHYSICIAN NO [facility] Work Phone: Start: 01-28-2023 End: 01-29-2023 Emergency department patient visit PHYSICIAN NO [facility] Work Phone: Start: 08-08-2022 End: 08-08-2022 [facility] Start: 07-05-2022 End: 07-05-2022 Emergency department patient visit PHYSICIAN NO [facility] Start: 05-07-2022 End: 05-08-2022 Emergency department patient visit PHYSICIAN NO [facility] [place] Start: 05-01-2022 End: 05-01-2022 Emergency department patient visit PHYSICIAN NO [facility] Start: 03-12-2022 End: 03-12-2022 Registered Recurring PHYSICIAN NO [facility] [place] Start: 02-07-2022 End: 02-07-2022 Emergency department patient visit Services [employer] Work Phone: [facility] Start: 12-10-2021 Registered Recurring Services [facility] Work Phone: [facility] Start: 11-21-2021 End: 11-21-2021 Admission to same day surgery center Services [facility] Work Phone: [facility] [place] Start: 11-13-2021 End: 11-13-2021 Emergency department patient visit Services [facility] [employer] Phone: [facility] Procedures Date Procedure Procedure Detail Performing Clinician Start: 06-26-2023 SARS-CoV-2, Influenz a & RSV (PCR) PHYSICIAN NO FAMILY Start: 06-26-2023 Plain chest X-ray PHYSI MARIBETH NO FAMILY Start: 05-01-2022 Urine culture PHYSICIAN NO FAMILY Start: 05-01-2022 Plain X-ray of right shoulder PHYSICIAN NO FAMILY Start: 11-21-2021 US bx lymph node Servic es [facility] Work Phone: Start: 11-13-2021 SARS Antigen (LFIA) Ser vices [facility] Work Phone: Urine culture PHYSICIAN NO F AMILY Urine culture PHYSICIAN NO F AMILY Plan of Treatment Date Care Activity Detail Author Start: 12-01-2023 [facility] Start: 05-08-2022 Bacteria identified in Urine by Culture Urine Culture [facility] Bacteria identified in Urine by Culture [facility] Work Phone: Chlamydia trachomati s DNA [Presence] in Unspecified specimen by GIANLUCA with probe detection [facility] HIV 1 RNA [#/volume] (viral load) in Unspecified specimen by GIANLUCA with probe detection [facility] Work Phone: HIV 1 RNA [Log #/vol ume] (viral load) in Unspecified specimen by GIANLUCA with probe detection [facility] Work Phone: HIV 1+2 Ab+HIV1 p24 Ag [Presence] in Serum or Plasma by Immunoassay [facility] Work Phone: Neisseria gonorrhoea e DNA [Presence] in Unspecified specimen by GIANLUCA with probe detection [facility] Patient Education [facility] Work Phone: Patient referral [facility] Work Phone: Reagin Ab [Presence] in Serum by RPR [facility] Work Phone: Treponema pallidum A b [Presence] in Serum by Immunofluorescence [facility] Work Phone: Trichomonas vaginali s DNA [Presence] in Unspecified specimen by GIANLUCA with probe detection [facility] Payers Date Payer Category Payer Medicaid [id number] 2023 Self-pay [id number] 1995 Unknown [id number] Medicaid [id number] Private Health Insurance [id number] Unknown Insurance No Card [id number] Unknown [id number] Unknown [id number] Unknown [id number] Unknown [id number] Worker's Compensation Industrial Self Ins [facility] [id number] Social History Date Type Detail Facility Start: 02-07-2022 End: 06-26-2023 Tobacco smoking status [facility] Smoker (finding) [facility] Start: 1995 Sex Assigned At Male F [facility] Start: 03-12-2022 End: 12-01-2023 Tobacco smoking status [facility] Ex-smoker (finding) [facility] Start: 09-11-2017 Tobacco smoking status Smokes tobacco daily (finding) [facility] Comment on above: 2 black and milds da mary, 1-2 cigarettes weekly Sex Assigned At Male [facility] Functional Status Date Assessment Result Facility 02-20-2024 Functional Status N/A [facility] Clinical Notes 12-01-2023 to 02-20-2024 Note Date [...] pull them backward. Do not sit or inspector wreath one place for long periods of time. [...] prescription pain medicine, or muscle relaxants. Take opba-vea-patakaz and prescription medicines only as told by your health care provider. Ask your health care provider if the medicine prescribed to you: ?Requires you to avoid driving or using machinery. ?Can cause constipation. You may need to take these actions to prevent or treat constipation: ?Drink enough fluid to keep your urine pale yellow. ?Take kiyp-zim-wewhhjm or prescription medicines. ?Eat foods that are [...] provider. Document Revised: 12/06/2020 Document Reviewed: 12/06/2020 [employer] Patient Education 2022 [employer]. Follow Up Care 02/20/2024 16:48:14 With:Silvio CORRALES Address: [address] [place] [address] Business (1) When:02/23/2024 17:27:33 [facility] 02-20-2024 Evaluation + Plan note [...] day(s), # 21 tab(s), Refills(s) 0, Pharmacy: [facility]/pharmacy #[id number], 183, cm, 02/20/24 16:57:00 EDT, Height/Length Dosing, 119.3, kg, 02/20/24 16:57:00 EDT, Weight Dosing [facility]01-22-2024 Hospital Discharge instructions Additional Instructions Take the antibiotic doxycycline twice a day for 7 days take with food No sexual activity for 2 weeks Always use a condom We usually call you with results but if you do not receive a phone call after 3 to 4 days and would like to know the results call [phone] [facility]: Evaluation note* Diagnosis Onset Date Resolution Status Lymphadenopathy acute [facility] Work Phone: Evaluation noteNo assessment information available [facility] Work Phone: Hospital course Narrative No data available for this section [facility] Work [facility]: Hospital Discharge instructions Additional Instructions Follow-up with primary care doctor Return to the ED if develop worsening symptoms or concerns Take the antibiotics as prescribed Take Tylenol or Motrin as needed for shoulder pain use ice pack on your shoulder [facility] Work Phone: Hospital Discharge instructions Additional Instructions Continue with bacitracin pebd-lds-yuhcqhj Return for new or worsening symptoms Call [facility] today to [facility] a [facility] Work [facility]: Hospital Discharge instructions Additional Instructions [facility] with [facility] possible[facility] Work [facility]: Hospital Discharge instructions Additional Instructions If your symptoms return/worsen or you develop any further concerns or symptoms please see your doctor or return to the emergency department immediately.[facility] Work Phone: Progress note No data available for this section [facility] Chief Complaint and Reason for [...] Primary Care Provider Active Sabiha Singleton , PHYSICIAN GENERAL PRACTICE- Emergency Provider Active Team Status: Inactive Member [...] section and content) DATE CREATED AUTHOR 03/03/2024 [facility] DATE CREATED AUTHOR AUTHOR'S ORGANIZ ATION 03/09/2024 [facility] DATE CREATED AUTHOR AUTHOR'S ORGANIZ ATION 04/09/2024 [facility] EPIC FOR RECORDS PERTAINING TO [...] BE BASED ON THE PRIMARY CLINICAL RECORDS. [employer] provides no warranty or guarantee of the accuracy or completeness of information in this document.
--- NOTE | 2024-06-17 04:25 | ECG_ITS ---
[facility] Test Date: 2024-06-17 Pat Name: HILTON MARTEL Department: Room: - Gender: Male Division Chief: : 1995 Requested By: [id number] Order Number: [id number] Reading MD: ISMAEL ALLEN Measurements Intervals [place] Rate: 70 P: 30 OK: 138 QRS: 11 QRSD: 78 T: 0 QT: 348 QTc: 368 Interpretive Statements 1100 Sinus rhythm 4068 Nonspecific Twave abnormality 9130 borderline ECG Compared to ECG 06/16/2024 05:06:14 No significant changes Electronically Signed On 06-17-2024 21:14:54 EDT by ISMAEL ALLEN
[2024-06-17] MEDS: LABETALOL HCL 20 MG/4 ML SYRINGE 10 MG IVP (04:49)
[2024-06-17] MEDS: LORAZEPAM 0.5 MG TABLET PO (04:49)
--- NOTE | 2024-06-17 04:49 | ED.GENADUL1 ---
HPI HPI - General Adult General Chief complaint: Recheck/Abnormal Lab/Rx Stated complaint: hypertension Time Seen by Provider: 06/17/24 03:46 Source: patient Mode of arrival: walk-in Limitations: no limitations History of Present Illness HPI narrative: This 29-year-old -[place] male who smokes presents for evaluation of awakening with dizziness, mild headache, chest pain and burning in his back that he thinks is kidney related pain. He was seen here yesterday after becoming dizzy at work and found to have high blood pressure and started on amlodipine. He has an appointment later today with a family physician to further evaluate his high blood pressure. The patient is here with his girlfriend. The girlfriend states that he woke up this morning and sat up in bed and was rubbing his chest and stretching out saying that his chest was hurting and his back was hurting and he wanted to come back to the emergency department so she brought him back. He was started on amlodipine yesterday and took his first dose around 4:30 PM yesterday. The patient recently started a new job at [employer]. He has been there for 3 weeks. He admits that he is under a lot of stress. The patient has 2 young children ages 1 and 6 and his girlfriend has 2 young children ages 3 and 7 and they live with his girlfriend's 9-year-old nephew who has severe ADHD. The patient and girlfriend admit that they are financially strapped right now and struggling to pay their bills and take care of their children. The patient denies any chest pain at this time. He denies any dizziness. His headache has improved. Related Data Previous Rx's ?Medication ?Instructions ?Recorded amlodipine 5 mg tablet (Norvasc) 5 mg PO DAILY #20 tabs 06/16/24 Allergies Allergy/AdvReac Type Severity Reaction Status Date / Time No Known Drug Allergies Allergy Verified 06/16/24 05:00 Opioid HPI Opioid Management Most Recent Opioid Data: No Data to Display Review of Systems ROS Status of ROS 10 or more systems reviewed and unremarkable except as noted in history and below PFSH PFSH Social History Smoking status: Heavy tobacco smoker Exam Narrative Exam Narrative: Vital signs and Nursing Notes reviewed: Patient is afebrile with a normal pulse, blood pressure is elevated at 173/119, he is not hypoxic with pulse ox of 99% on room air General: Awake, alert, oriented, no acute distress, lying comfortably on the stretcher, mildly anxious -[place] male HEENT: Normocephalic atraumatic, mucous membranes are moist and pink, eyes are clear, normal conjunctiva, vision is grossly intact Neck: Supple, no meningeal signs, no anterior or posterior cervical lymphadenopathy Chest: Lungs are clear to auscultation with good air entry, there is no wheezing rhonchi or rales appreciated no accessory muscle use, patient is speaking in complete sentences-no chest wall tenderness to palpation CVS: Regular rate and rhythm S1-S2, no murmurs rubs or gallops, pulses are brisk and equal bilaterally ABD: Soft, nondistended, nontender, no rebound guarding or rigidity, bowel sounds are normal, no pulsatile masses appreciated Extremities: Moving all extremities, no lower extremity tenderness or swelling noted, negative Homans' sign, pulses are brisk and equal bilaterally Skin: Normal in appearance without rash,pallor, petechiae or purpura Neuro: No focal deficits Constitutional Vital Signs, click to edit/add: Last Vital Signs Temp 99.3 F 06/17/24 03:36 Pulse 68 06/17/24 05:31 Resp 18 06/17/24 05:31 BP 114/78 06/17/24 05:31 Pulse Ox 99 06/17/24 03:40 O2 Del Method Room Air 06/17/24 03:36 Course Vital Signs Vital signs: Vital Signs Temperature 99.3 F 06/17/24 03:36 Pulse Rate 80 06/17/24 03:36 Respiratory Rate 18 06/17/24 03:36 Blood Pressure 175/108 H 06/17/24 03:36 Pulse Oximetry 98 06/17/24 03:36 Oxygen Delivery Method Room Air 06/17/24 03:36 Temperature 99.3 F 06/17/24 03:36 Pulse Rate 68 06/17/24 05:31 Respiratory Rate 18 06/17/24 05:31 Blood Pressure 114/78 06/17/24 05:31 Pulse Oximetry 99 06/17/24 03:40 Oxygen Delivery Method Room Air 06/17/24 03:36 Medical Decision Making [facility] Narrative Medical decision making narrative: This 29-year-old male, smoker who was seen here yesterday for elevated blood pressure that was found as an incidental finding when he became dizzy and nauseated at work and had a headache and was placed on Norvasc 5 mg and has an appointment later today with a new family practitioner presents for evaluation of recurrent elevated blood pressure. The patient's girlfriend is with him. She states he woke up in the middle of the night holding his chest and stretching stating that he had chest pain and burning in his back and wanted to come back to the emergency department. Upon arrival he was noted to have high blood pressure. He has a normal EKG. He had normal labs yesterday with an exception of a mildly elevated creatinine. I repeated a troponin which was normal and urinalysis due to the complaint of flank pain. There is a small amount of blood in his urine it is otherwise clear. He was medicated emergency department with a dose of Ativan and 10 mg of IV labetalol with clinical improvement. On reevaluation his blood pressure has come down to 114/78. He does have the prescription for Norvasc that he was given yesterday. I encouraged him to continue taking that and explained that blood pressure medication takes a week or longer to fully start working. I did discuss lifestyle changes with him including smoking cessation and dietary changes. The patient and his girlfriend admit they have a lot of stress as they have 4 children between the 2 of them and also lived with a 9-year-old with severe ADHD. They have financial troubles and he just started a new job that he is afraid of losing due to his recent health condition. He does have an appointment later today and will follow-up as scheduled. Lab Data Labs: Lab Results 06/17/24 06/17/24 Range/Units 04:40 04:45 Troponin I High Sens 4.3 (4.0-76.1) pg/mL Urine Color Lt. yellow (YELLOW) Urine Clarity Clear (CLEAR) Urine pH 7.0 (5.0-9.0) Ur Specific [place] 1.020 (1.005-1.025) Urine Protein Negative (NEG/TRACE) mg/dL Urine Glucose (UA) Negative (NEGATIVE) mg/dL Urine Ketones Negative (NEGATIVE) mg/dL Urine Occult Blood Negative (NEGATIVE) Urine Nitrite Negative (NEGATIVE) Urine Bilirubin Negative (NEGATIVE) Urine Urobilinogen 0.2 (0.2-1.0) EU/dL Ur Leukocyte Esterase Negative (NEGATIVE) Urine RBC 5-10 A (0-2) #/HPF Urine WBC 0-2 A (NONE SEEN) #/HPF Ur Squamous Epith Cells Rare (NONE/RARE) #/LPF Urine Crystals None seen (None Seen) #/HPF Urine Bacteria None seen (NONE SEEN) #/HPF Urine Casts None seen (NONE SEEN) #/LPF Urine Mucus None seen (NONE SEEN) Ur Culture Indicated? No ECG Data Attestation: I personally reviewed and interpreted this ECG as follows: (Sinus rhythm at 73 bpm, normal axis, normal intervals, no acute ST segment elevation or T wave inversion) Discharge Plan Discharge Stand Alone Forms: Portal Instructions Chief Complaint: Recheck/Abnormal Lab/Rx Clinical Impression: High blood pressure, Anxiety about health Patient Disposition: Home, Self-Care Time of Disposition Decision: 05:44 Condition: Good Prescriptions / Home Meds: No Action amlodipine [Norvasc] 5 mg tablet 5 mg PO DAILY Qty: 20 0RF Print Language: Italian Instructions: Hypertension (ED) Referrals: Physician,Non-Staff, MD [Primary Care Provider] - 1 week
[2024-06-17 04:57] LABS: Bilirubin Urine NEGATIVE (NEGATIVE); Blood Urine NEGATIVE (NEGATIVE); Clarity Urine CLEAR (CLEAR); Color Urine LT. YELLOW (YELLOW); Glucose Urine UA NEGATIVE (NEGATIVE); Ketones Urine NEGATIVE (NEGATIVE); Leukocyte Esterase Urine NEGATIVE (NEGATIVE); Nitrite Urine NEGATIVE (NEGATIVE); Protein Urine NEGATIVE (NEG/TRACE); Urobilinogen Urine 0.2 EU/dL (0.2-1.0)
[2024-06-17 05:03] LABS: Bacteria Urine NONE SEEN #/HPF (NONE SEEN); Cast Seen? NONE SEEN #/LPF (NONE SEEN); Crystals Seen? None Seen #/HPF (None Seen); Mucus Urine NONE SEEN (NONE SEEN); Squamous Epithelial Cell Urine RARE #/LPF (NONE/RARE); Urine Culture Indicated NO; WBC Urine 0-2 #/HPF (NONE SEEN)
[2024-06-17 05:14] LABS: Troponin I High Sensitivity 4.3 pg/mL (4.0-76.1)
== END 2024-06-17 05:55 | disposition home or self-care (01) ==
PROVIDERS: Emergency Provider Emergency Medicine
DX: F41.8 Other specified anxiety disorders (principal); I10 Essential (primary) hypertension; F17.200 Nicotine dependence, unspecified, uncomplicated
CPT/HCPCS: 36415; 81001; 84484; 93005; 96374; 99284; J1290

== ENCOUNTER 2024-08-26 10:49 | Emergency (ER) | payer OTHER, SELFPAY ==
[2024-08-26 10:56] VITALS: BP 147/115; PULSE 98; TEMP 36.9; O2SAT 100; BMI 34.6
--- NOTE | 2024-08-26 11:17 | ED_ITS ---
HPI HPI - General Adult General Chief complaint: Urogenital-Male Stated complaint: PENILE DISCHARGE Time Seen by Provider: 08/26/24 11:02 Source: patient Mode of arrival: walk-in History of Present Illness HPI narrative: The patient is coming to us to be treated for STI he really had history of chlamydia started having penile discharge over the last few days Patient denies any other symptoms Related Data Previous Rx's ?Medication ?Instructions ?Recorded amlodipine 5 mg tablet (Norvasc) 5 mg PO DAILY #20 tabs 06/16/24 doxycycline hyclate 100 mg tablet 100 mg PO BID 7 days #14 tabs 08/26/24 Allergies Allergy/AdvReac Type Severity Reaction Status Date / Time No Known Drug Allergies Allergy Verified 06/16/24 05:00 Opioid HPI Opioid Management Most Recent Opioid Data: No Data to Display Review of Systems ROS Status of ROS 10 or more systems reviewed and unremark able except as noted in history and below PFSH PFSH Social History Smoking status: Heavy tobacco smoker Exam Narrative Exam Narrative: Nurses notes and vital signs reviewed and patient is not hypoxic. General: Well-appearing and in no apparent distress. Skin: Warm, dry, no pallor noted. No rash. Head: Normocephalic, atraumatic. Neck: Supple, non-tender. Eye: Pupils are equal, round and EOMI. No scleral icterus. Ears, Nose, Mouth, and Throat: TM are clear, no nasal mucosal hypertrophy. Oral mucosa is moist, no posterior oropharynx erythema, uvula is mid-line Cardiovascular: Regular Rate and Rhythm without murmur, gallop or rub. Respiratory: No accessory muscle use or respiratory distress. Lungs are clear to auscultation, no wheezing, rales or rhonchi Chest Wall: no tenderness Back: No midline thoracic or lumbar vertebral tenderness. No CVA tenderness Musculoskeletal: normal ROM, no calf or popliteal tenderness, no lower extremity edema/swelling GI: Abdomen is soft, non-distended. Normal bowel sounds. No masses appreciated. No tenderness to palpation. No rebound, guarding, or rigidity noted. Neurological: A&O x4. No cranial nerve dysfunction observed. No truncal ataxia. Moves all extremities. Sensation intact. Psychiatric: Cooperative and interactive. Normal mood and affect. Constitutional Vital Signs, click to edit/add: Last Vital Signs Temp 98.4 F 08/26/24 10:56 Pulse 98 H 08/26/24 10:56 Resp 18 08/26/24 10:56 BP 147/115 H 08/26/24 10:56 Pulse Ox 100 08/26/24 10:56 O2 Del Method Room Air 08/26/24 10:56 Course Vital Signs Vital signs: Vital Signs Temperature 98.4 F 08/26/24 10:56 Pulse Rate 98 H 08/26/24 10:56 Respiratory Rate 18 08/26/24 10:56 Blood Pressure 147/115 H 08/26/24 10:56 Pulse Oximetry 100 08/26/24 10:56 Oxygen Delivery Method Room Air 08/26/24 10:56 Temperature 98.4 F 08/26/24 10:56 Pulse Rate 98 H 08/26/24 10:56 Respiratory Rate 18 08/26/24 10:56 Blood Pressure 147/115 H 08/26/24 10:56 Pulse Oximetry 100 08/26/24 10:56 Oxygen Delivery Method Room Air 08/26/24 10:56 Medical Decision Making [facility] Narrative Medical decision making narrative: The patient presented to us with urethritis mostly secondary to STI The urine was sent for chlamydia and gonorrhea but the patient will be treated with ceftriaxone in the ER and doxycycline for the next 7 days The patient is to follow up with primary care physician in next 2-3 days or to return to the emergency department should any of the signs or symptoms worsen or new symptoms develop. The patient agrees with the following Diagnosis and Treatment plan and the patient will be discharged home. Discharge Plan Discharge Chief Complaint: Urogenital-Male Clinical Impression: Urethritis Patient Disposition: Home, Self-Care Time of Disposition Decision: 11:19 Prescriptions / Home Meds: New doxycycline hyclate 100 mg tablet 100 mg PO BID 7 Days Qty: 14 0RF No Action amlodipine [Norvasc] 5 mg tablet 5 mg PO DAILY Qty: 20 0RF Print Language: Khmer Instructions: Nonspecific Urethritis in Men (ED) Referrals: Physician,Non-Staff, [Physician] - 1 week
--- OUTSIDE RECORDS SUMMARY | 2024-08-26 11:21 | XMS_ITS | CCD ---
Author Organization [facility] Care Team Providers Care Loom Repairer Name Role Phone Family Health, Services Primary Care Provider JUAREZ Singleton Emergency Provider MD Emy Hall Attending Provider DO Quan Neal II Attending Provider NO FAMILY, PHYSICIAN Primary Care Provider Unava ilable ALISA Nath Emergency Provider DO Quan Neal II Attending Provider [facility] Primary Care Provider [phone] DO Anthony Hoffman Emergency Provider [phone] DO Alverto Nath Emergency Provider [phone] NO FAMILY, PHYSICIAN Primary Care Provider Unava ilable Gregg Provider Emergency Provider Unavailable NO FAMILY, PHYSICIAN Primary Care Provider Unava ilable ALISA Nath Emergency Provider NO FAMILY, PHYSICIAN Primary Care Provider Unava ilable DO Anthony Hoffman Emergency Provider MD Carlito Jama Emergency Provider NO FAMILY, PHYSICIAN Primary Care Provider Unava ilable DO Anthony Hoffman Emergency Provider DO Romel Hudson Emergency Provider NO FAMILY, PHYSICIAN Primary Care Provider Unava ilable SRINI SingletonP-BC Sabiha E Emergency Provider Silvio CORRALES Primary Care Physician [phone] Travis Valentine Attending Unavailable WALT ARREOLA Attending Unavailable NO FAMILY, PHYSICIAN Primary Care Unavailable Romel Hudson Attending Unavailable Romel Hudson Admitting Unavailable Mani Sabiha E Attending Unavailable Mani Sabiha E Admitting Unavailable NO FAMILY, PHYSICIAN Primary Care Unavailable Allergies Allergy Classification Reported Allergen(s) Allergy Type Date of Onset Reaction(s) Facility (1 source) No Known Medication Allergies; Translations: [No Known Medication Allergies] Propensity to adverse reactions (disorder) [facility] Repository Medications Current Medications Medication [...] Hyclate Discontinued 100 MG PO Twice daily 23 05May 06, 2022 11:00pm August 08, 2022 11:26am Start: 11-03-2021 End: 11-06-2021 take 100 mg by mouth twice daily Doxycycline Hyclate Discontinued 100 MG PO Twice daily November 03, 2021 12:00am November 06, 2021 6:42pm Start: 12-02-2020 End: 02-06-2021 take 100 mg by mouth twice daily Doxycycline Hyclate Discontinued 100 MG PO Twice daily 14 7 December 02, 2020 12:00am December 16, 2020 5:49pm [place] (No Known Home Meds) (6 sources) Start: 06-26-2023 [place] (No Kn own Home Meds) Active June 26, 2023 12:00am Start: 08-08-2022 [place] (No Kn own Home Meds) Active August 08, 2022 12:00am Start: 12-10-2021 [place] (No Kn own Home Meds) Active December 10, 2021 4:07pm predniSONE 20 mg oral tablet (1 source) Start: 02-20-2024 End: 02-27-2024 take 3 tablets by mouth once daily predniSONE 20 mg Tab 60 mg = 3 tab(s), Oral, Daily, X 7 day(s), # 21 tab(s), Refills(s) 0, Pharmacy: [facility]/pharmacy #[id number], 183, cm, 02/20/24 16:57:00 EDT, Height/Length [...] Cough, unspecified; Translations: [Cough, unspecified] Onset: 06-26-2023 Urinary tract infections (11 sources) Urethritis; Translations: [...] fatigue; Translations: [Other fatigue] Onset: 06-26-2023 Episodic Residual codes; unclassified (1 source) Pain, unspecified; Translations: [Pain, unspecified] Onset: 06-26-2023 Episodic Results Test Name Value Interpretation Reference Range Facility Consent for Treatmenton 02-08 Consent for Treatment [id number] Normal [facility] Discharge Instructionson Discharge Instructions [id number] Normal [facility] ED Clinical Summaryon 2023 ED Clinical Summary (Inserted Image. Omaira ble to display) [place] [id number] ED Clinical Summary Person Information Name: LOUISA MARTEL [place] Age: 28 Years : 1995 Sex: Male Language: Slovenian PCP: Silvio CORRALES MD Marital Status: Single [...] 02/20/2024 17:38:53 02/20/2024 17:38:53 02/20/2024 17:38:53 AD[address]ESS: [address] [place] [id number] PHYS DOC NOTES: MEDICAL INFORMATION: Prescriptions Given: New Medications [id number], [address] [place], [place] [id number], [phone] albuterol (Albuterol (Eqv-ProAir HFA) 90 mcg/inh inhalation aerosol) 2 Puffs Inhalation every 6 hours as needed Wheezing. Refills: 0. predniSONE (predniSONE 20 mg Tab) 3 Tablets By Mouth every day for 7 Days. Refills: 0. PATIENT EDUCATION INFORMATION: Instructions: Chronic Back Pain Follow up: With: Address: When: Silvio CORRALES [address] [place] [address] Business (1) In 3 days 02/23/2024 DIAGNOSIS: Back pain Normal [facility] ED Note-Physicianon 02-20-20 ED Note-Physician [...] Inhalation, q6hr Wheezing, 8.5 gm, Refill(s) 0, [facility]/pharmacy #[id number], 183, cm, 02/20/24 16:57:00 EDT, Height/Length Dosing, 119.3, kg, 02/20/24 16:57:00 EDT, Weight Dosing predniSONE, 60 mg = 3 tab(s), Oral, Daily, X 7 day(s), # 21 tab(s), Refills(s) 0, Pharmacy: [facility]/pharmacy #[id number], 183, cm, 02/20/24 16:57:00 EDT, Height/Length [...] Silvio CORRALES In 3 days 02/23/[address] [place] [address]- [facility] (1) Additional Instructions: Patient Education Chronic Back [...] made to ensure accuracy, however, inadvertently computerized cashier ticket selling mistakes may be present. Appropriate healthcare PPE [...] No qualifying data available. Normal [facility] Comment on above: Result Comment: [...] them backward. ? Do not sit or flour inspector one place for long periods of time. [...] prescription pain medicine, or muscle relaxants. Take ncfl-zlu-gxpczwm and prescription medicines only as told by your health care provider. ? Ask your health care provider if the medicine prescribed to you: ? Requires you to avoid driving or using machinery. ? Can cause constipation. You may need to take these actions to prevent or treat constipation: ? Drink enough fluid to keep your urine pale yellow. ? Take rwvh-oju-blhvnyw or prescription medicines. ? Eat foods that [...] (more content not included)... Normal [facility] ED Patient Summaryon 024 ED Patient Summary (Inserted Image. Omaira ble to display) [address] [address] Patient Discharge Instructions Person Information Name: LOUISA MARTEL Age: 28 Years Arrival Date: 02/20/2024 16:45:41 Discharge Diagnosis: Back pain Primary Care Physician: Silvio CORRALES MD Provider Information Primary Provider: Travis Valentine DO Advanced Bioinformatics Assistant:Shaheed Johnson PA-C The exam and treatment you received in the Emergency Department were for an urgent problem and are not intended as complete care. It is important that you follow up with a doctor, nurse practitioner, or physician?s paraprofessional education assistant for ongoing care. If your symptoms [...] Follow-up Instructions: With: Address: When: Silvio CORRALES [address] [place], [place] [id number] [facility] (1) In 3 days 02/23/2024 In the event that this physician does not participate in your insurance network, please consult with your insurance company to find a nearby participating provider. Patient Education Materials: Chronic Back Pain A MESSAGE TO ALL PATIENTS REGARDING OPIOIDS PRESCRIPTION OPIOIDS: WHAT YOU NEED TO KNOW Prescription opioids can be used to help relieve osyiiskn-oz-emvjig pain and are often prescribed following a [...] be struggling with addiction, tell your health lawn care professional and ask for guidance or call SAM[employer]?S National Helpline at 9-430-169-HELP. v Source: Department (more content not included)... [facility] Chlamydia/GC/Trich NAAon Chlamydia Trachomotis, GIANLUCA Positive Critically abnormal Negative [facility] Comment on above: Order Comment: SOURC E OF SPECIMEN: urine Performed By: #### G CCHLAMTRI #### [facility] , Neisseria Gonorrhoeae, GIALNUCA Negative Normal Negative [facility] Comment on above: Order Comment: SOURC E OF SPECIMEN: urine Performed By: #### G CCHLAMTRI #### [facility] , Trichomonas GIANLUCA Negative Normal Negative [facility] Comment on above: Order Comment: SOURC E OF SPECIMEN: urine Result Comment: Perf ormed at: =G - [facility] [address] [id number] Shipyard Helper: Shanda Quan MD, Phone: [phone] PERFORMED BY: [facility] [address] [place] [address] PATHOLOGIST MATERIAL HANDLING TECHNICIAN AILIN SNYDER M.D. Performed By: #### G CCHLAMTRI #### [facility] , COVID CepheidOrdered By: Katherine Hudson on 06-26-2023 SARS-CoV-2 (COVID-19) Ab IA Ql Negative Negative [facility] Comment on above: This is a duplicate Cepheid Xpert Xpress CoV-2/Flu/RSV Plus RNA by RT-PCR result to be used for statistical tracking purpose only. SARS-CoV-2 (COVID-19) RNA GIANLUCA+probe Ql (Unsp spec) [facility] COVID-19 / Flu A/B / RSV PCR [...] or Cepheid Disclaimer revoked sooner. PERFORMED BY: [place] [id number] PATHOLOGIST MATERIAL HANDLING TECHNICIAN AILIN SNYDER M.D. Normal [facility] Comment on above: Performed By: #### C OVID19 FLU RSV, CEPHEID NEG #### [address] Cepheid COVID PCR Negativeon 06-26-2023 SARS-CoV-2 (COVID-19) RNA GIANLUCA+probe Ql (Unsp spec) Negative Normal Negative [facility] Comment on above: Result Comment: This is a duplicate Cepheid Xpert Xpress CoV-2/Flu/RSV Plus RNA by RT-PCR result to be used for statistical tracking purpose only. PERFORMED BY: [place] [address] PATHOLOGIST MATERIAL HANDLING TECHNICIAN AILIN SNYDER M.D. Performed By: #### C OVID19 FLU RSV, CEPHEID NEG #### [place] [id number] [facility] ECG 12 lead ECGon 06-26-2023 ECG 12 lead ECG [place] [address] Electrocardiograph Report Signed Patient: Louisa Martel MR#: [id number] : 1995 Acct:[id number] Age/Sex: 28 / M ADM Date: 06/26/23 Loc: ER Room: Type: [facility] ER Attending Dr: Ordering Provider: Romel Hudson [...] sinus rhythm Confirmed by Romel HUDSON DO ([id number]) on 06/26/2023 11:37:42 AM Referred By: Electronically Signed By:Romel HUDSON DO Transcribed By: MUS Signed By Romel Hudson DO 0 06/26/23 1137 Normal [facility] XR chest 2V*on 06-26-2023 XR chest 2V* [facility] [place] [id number] XRay Report Signed Patient: Louisa Martel MR#: [id number] : 1995 Acct:[id number] Age/Sex: 28 / M ADM Date: 06/26/23 Loc: ER Room: Type: [facility] ER Attending Dr: Copies to: Romel Hudson [...] Dana Butcher M.D.06/26/2023 8:54 AM Dictation Location: [place] [address] Transcribed By: DEEPTHI 06/26/23 0854 Dictated By: Dana Butcher MD 06/26/23 0853 Signed By: 06/26/2354 Normal [facility] Urine culture routineOrdered By: Alverto Nath on 05-10-2022 Bacteria identified Cx Nom (U) No Growth 2 Days [facility] Automated erythrocytes count in urine sediment (number/area)Ordered By: Alverto Nath on 05-08-2022 RBC Auto (Urine sed) [#/Area] None seen [HPF] 0-4 [facility] Automated leukocytes count i n urine sediment (number/area)Ordered By: Alverto Nath on 05-08-2022 WBC Auto (Urine sed) [#/Area] 10-19 [HPF] 0-4 [facility] Bilirubin Test strip Ql (U)O rdered By: Alverto Nath on 05-08-2022 Bilirubin Ql (U) Negative Negative [facility] Color Auto (U)Ordered By: Mike Nath on 05-08-2022 Color (U) Yellow Yellow [facility] Ketones Auto test strip (U) [Mass/Vol]Ordered By: Alverto Nath on 05-08-2022 Ketones (U) [Mass/Vol] Trace Negative [facility] - UrinalysisOrder ed By: Alverto Nath on 05-08-2022 Hyaline casts LM Ql (Urine sed) 0-8 [LPF] 0-8 [facility] Nitrite Test strip Ql (U)Ord ered By: Alverto Nath on 05-08-2022 Nitrite Ql (U) Negative Negative [facility] Protein Auto test strip (U) [Mass/Vol]Ordered By: Alverto Nath on 05-08-2022 Protein (U) [Mass/Vol] Negative Negative [facility] Specific gravity Auto test s trip (U) [Rel density]Ordered By: Alverto Nath on 05-08-2022 Specific gravity (U) [Rel density] 1.010 1.001-1.03 0 [facility] Squamous epithelial cells de tection in urine sediment by light microscopyOrdered By: Alverto Nath on 05-08-2022 Epithelial cells.squamous LM Ql (Urine sed) None seen [HPF] 0-2 [facility] Urine bacteria detection by automated methodOrdered By: Alverto Nath on 05-08-2022 Bacteria Auto Ql (U) None seen None Seen [facility] Urine clarity by refractomet ry automatedOrdered By: Alverto Nath on 05-08-2022 Clarity Refractometry automated (U) Clear Clear [facility] Urine glucose measurement by automated test strip (mass/volume)Ordered By: Alverto Nath on 05-08-2022 Glucose Auto test strip (U) [Mass/Vol] Normal mg/dL Normal [facility] Urine hemoglobin detection b y automated test stripOrdered By: Alverto Nath on 05-08-2022 Hemoglobin Auto test strip Ql (U) Negative Negative [facility] Urine leukocyte esterase det ection by automated test stripOrdered By: Alverto Nath on 05-08-2022 Leukocyte esterase Auto test strip Ql (U) 1+ Negative [facility] Urobilinogen Auto test strip (U) [Mass/Vol]Ordered By: Alverto Nath on 05-08-2022 Urobilinogen (U) [Mass/Vol] Normal mg/dL Normal [facility] pH Auto test strip (U)Ordere d By: Alverto Nath on 05-08-2022 pH (U) 5.5 [pH] 5.0-9.0 [facility] Basophils Auto (Bld) [#/Vol] Ordered By: Alverto Nath on 05-07-2022 Basophils (Bld) [#/Vol] 0.1 10*3/uL 0.0-0.2 [facility] Basophils/100 WBC Auto (Bld) Ordered By: Alverto Nath on 05-07-2022 Basophils/100 WBC (Bld) 0.9 % . [facility] Blood hemoglobin measurement (mass/volume)Ordered By: Alverto Nath on 05-07-2022 Hemoglobin (Bld) [Mass/Vol] 15.3 g/dL 13.0-17.0 [facility] Blood leukocytes automated c ount (number/volume)Ordered By: Alverto Nath on 05-07-2022 WBC (Bld) [#/Vol] 6.0 10*3/uL 4.5-11.0 [facility] Body fluid albumin measureme nt (mass/volume)Ordered By: Alverto Nath on 05-07-2022 Albumin (Body fld) [Mass/Vol] 4.3 g/dL 3.2-5.5 [facility] Creatinine and Glomerular fi ltration rate.predicted panel (S/P/Bld)Ordered By: Alverto Nath on 05-07-2022 Creatinine [Mass/Vol] 1.35 mg/dL 0.64-1.27 [facility] Direct bilirubin measurement Ordered By: Alverto Nath on 05-07-2022 Bilirubin.direct [Mass/Vol] mg/dL 0.0-0.4 [facility] Eosinophils Auto (Bld) [#/Vo l]Ordered By: Alverto Nath on 05-07-2022 Eosinophils (Bld) [#/Vol] 0.1 10*3/uL 0.0-0.45 [facility] Eosinophils/100 WBC Auto (Bl d)Ordered By: Alverto Nath on 05-07-2022 Eosinophils/100 WBC (Bld) 1.1 % . [facility] Erythrocyte distribution wid th Auto (RBC) [Ratio]Ordered By: Alverto Nath on 05-07-2022 Erythrocyte distribution width (RBC) [Ratio] 14.1 % 12.0-14.8 [facility] Estimated glomerular filtrat ion rate (GFR) non- AmericanOrdered By: Alverto Nath on 05-07-2022 GFR/1.73 sq M.predicted among non-blacks MDRD (S/P/Bld) [Vol rate/Area] > 60 mL/Min [facility] Globulin Calc (S) [Mass/Vol] Ordered By: Alverto Nath on 05-07-2022 Globulin (S) [Mass/Vol] 3.1 g/dL [facility] Hematocrit Auto (Bld) [Volum e fraction]Ordered By: Alverto Nath on 05-07-2022 Hematocrit (Bld) [Volume fraction] 46.1 % 38.8-50.0 [facility] Laboratory - Chemistry and C hemistry - challengeOrdered By: Alverto Nath on 05-07-2022 Lipase [Catalytic activity/Vol] 30.0 U/L 22-51 [facility] Laboratory - Hematology and Cell countsOrdered By: Alverto Nath on 05-07-2022 Nucleated RBC/100 WBC (Bld) [Ratio] 0.0 % 0-0.5 [facility] Lymphocytes Auto (Bld) [#/Vo l]Ordered By: Alverto Nath on 05-07-2022 Lymphocytes (Bld) [#/Vol] 2.1 10*3/uL 1.00-4.8 [facility] Lymphocytes/100 WBC Auto (Bl d)Ordered By: Alverto Nath on 05-07-2022 Lymphocytes/100 WBC (Bld) 35.2 % . [facility] MCH Auto (RBC) [Entitic mass ]Ordered By: Alverto Nath on 05-07-2022 MCH (RBC) [Entitic mass] 31.5 pg 27.5-35.2 [facility] MCHC Auto (RBC) [Mass/Vol]Or dered By: Alverto Nath on 05-07-2022 MCHC (RBC) [Mass/Vol] 33.2 g/dL 32.5-35.6 [facility] MCV Auto (RBC) [Entitic vol] Ordered By: Alverto Nath on 05-07-2022 MCV (RBC) [Entitic vol] 94.9 fL 83.5-101 [facility] Monocytes Auto (Bld) [#/Vol] Ordered By: Alverto Nath on 05-07-2022 Monocytes (Bld) [#/Vol] 0.4 10*3/uL 0.0-0.8 [facility] Monocytes/100 WBC Auto (Bld) Ordered By: Alverto Nath on 05-07-2022 Monocytes/100 WBC (Bld) 7.0 % . [facility] Neutrophils Auto (Bld) [#/Vo l]Ordered By: Alverto Nath on 05-07-2022 Neutrophils (Bld) [#/Vol] 3.4 10*3/uL 1.8-7.7 [facility] Neutrophils/100 WBC Auto (Bl d)Ordered By: Alverto Nath on 05-07-2022 Neutrophils/100 WBC (Bld) 55.8 % . [facility] No Panel InformationOrdered By: Alverto Nath on 05-07-2022 Estimated GFR () > 60 mL/Min [facility] Comment on above: GFR estimated refere nce range: According to KDOQI guidelines, <60 ml/min/1.73m2 is sufficient to diagnose a patient with chronic kidney disease. Pharmacy Creatinine Clearance (Chem 109.81 [facility] Platelet mean volume Auto (B ld) [Entitic vol]Ordered By: Alverto Nath on 05-07-2022 Platelet mean volume (Bld) [Entitic vol] 10.0 fL 6.6-10.1 [facility] Platelets Auto (Bld) [#/Vol] Ordered By: Alverto Nath on 05-07-2022 Platelets (Bld) [#/Vol] 128 10*3/uL 150-450 [facility] Protein [Mass/volume] in Ser um or PlasmaOrdered By: Alverto Nath on 05-07-2022 Protein [Mass/Vol] 7.4 g/dL 6.1-7.9 [facility] RBC Auto (Bld) [#/Vol]Ordere d By: Alverto Nath on 05-07-2022 RBC (Bld) [#/Vol] 4.86 10*6/uL 3.90-5.[address] [facility] Serum or plasma alanine flores otransferase measurement without P-5'-P (enzymatic activiOrdered By: Alverto Nath on 05-07-2022 ALT No additional P-5'-P [Catalytic activity/Vol] 57 U/L 10-60 [facility] Serum or plasma albumin/glob ulin mass ratioOrdered By: Alverto Nath on 05-07-2022 Albumin/Globulin [Mass ratio] 1.4 {ratio} [facility] Serum or plasma alkaline rema sphatase measurement (enzymatic activity/volume)Ordered By: Alverto Nath on 05-07-2022 ALP [Catalytic activity/Vol] 59 U/L 32-92 [facility] Serum or plasma aspartate am inotransferase measurement (enzymatic activity/volume)Ordered By: Alverto Nath on 05-07-2022 AST [Catalytic activity/Vol] 29 U/L 10-42 [facility] Serum or plasma calcium levi urement (mass/volume)Ordered By: Alverto Nath on 05-07-2022 Calcium [Mass/Vol] 9.6 mg/dL 8.2-10.2 [facility] Serum or plasma chloride falguni surement (moles/volume)Ordered By: Alverto Nath on 05-07-2022 Chloride [Moles/Vol] 102 mmol/L 95-114 [facility] Serum or plasma glucose levi urement (mass/volume)Ordered By: Alverto Nath on 05-07-2022 Glucose [Mass/Vol] 99 mg/dL 70-100 [facility] Comment on above: ADA recommended refe rence range Random Glucose Reference Range is dependent on time and content of last meal. Glucose of more than 200 mg/dL in a nonstressed, ambulatory subject supports the diagnosis of Diabetes Mellitus. Serum or plasma non-glucuron idated bilirubin measurement (mass/volume)Ordered By: Alverto Nath on 05-07-2022 Bilirubin.indirect [Mass/Vol] TNP [facility] Comment on above: Test not performed Serum or plasma potassium me asurement (moles/volume)Ordered By: Alverto Nath on 05-07-2022 Potassium [Moles/Vol] 3.7 mmol/L 3.5-5.1 [facility] Serum or plasma sodium measu rement (moles/volume)Ordered By: Alverto Nath on 05-07-2022 Sodium [Moles/Vol] 136 mmol/L 136-146 [facility] Serum or plasma total biliru bin measurement (mass/volume)Ordered By: Alverto Nath on 05-07-2022 Bilirubin [Mass/Vol] 0.4 mg/dL 0.3-1.2 [facility] Serum or plasma total carbon dioxide measurement (moles/volume)Ordered By: Alverto Nath on 05-07-2022 CO2 [Moles/Vol] 25.3 mmol/L 22.0-30.0 [facility] Serum or plasma urea nitroge n measurement (mass/volume)Ordered By: Alverto Nath on 05-07-2022 Urea nitrogen [Mass/Vol] 13 mg/dL 08-02 [facility] Urine culture routineOrdered By: PROVIDER TEMP on 05-03-2022 Bacteria identified Cx Nom (U) 2 Days [facility] Automated erythrocytes count in urine sediment (number/area)Ordered By: PROVIDER TEMP on 05-01-2022 RBC Auto (Urine sed) [#/Area] 0-1 [HPF] 0-4 [facility] Automated leukocytes count i n urine sediment (number/area)Ordered By: PROVIDER TEMP on 05-01-2022 WBC Auto (Urine sed) [#/Area] 10-19 [HPF] 0-4 [facility] Bilirubin Test strip Ql (U)O rdered By: PROVIDER TEMP on 05-01-2022 Bilirubin Ql (U) Negative Negative [facility] Color Auto (U)Ordered By: NADINE HURTADO TEMP on 05-01-2022 Color (U) Yellow Yellow [facility] Ketones Auto test strip (U) [Mass/Vol]Ordered By: PROVIDER TEMP on 05-01-2022 Ketones (U) [Mass/Vol] Trace Negative [facility] - UrinalysisOrder ed By: PROVIDER TEMP on 05-01-2022 Hyaline casts LM Ql (Urine sed) 0-8 [LPF] 0-8 [facility] Nitrite Test strip Ql (U)Ord ered By: PROVIDER TEMP on 05-01-2022 Nitrite Ql (U) Negative Negative [facility] Protein Auto test strip (U) [Mass/Vol]Ordered By: PROVIDER TEMP on 05-01-2022 Protein (U) [Mass/Vol] Negative Negative [facility] Specific gravity Auto test s trip (U) [Rel density]Ordered By: PROVIDER TEMP on 05-01-2022 Specific gravity (U) [Rel density] 1.021 1.001-1.03 0 [facility] Squamous epithelial cells de tection in urine sediment by light microscopyOrdered By: PROVIDER TEMP on 05-01-2022 Epithelial cells.squamous LM Ql (Urine sed) 0-1 [HPF] 0-2 [facility] Urine bacteria detection by automated methodOrdered By: PROVIDER TEM on 05-01-2022 Bacteria Auto Ql (U) None seen None Seen [facility] Urine clarity by refractomet ry automatedOrdered By: PROVIDER TEMP on 05-01-2022 Clarity Refractometry automated (U) Clear Clear [facility] Urine culture routineOrdered By: PROVIDER TEM on 05-01-2022 Bacteria identified Cx Nom (U) 2 Days [facility] Urine glucose measurement by automated test strip (mass/volume)Ordered By: PROVIDER [facility] on 05-01-2022 Glucose Auto test strip (U) [Mass/Vol] Normal mg/dL Normal [facility] Urine hemoglobin detection b y automated test stripOrdered By: PROVIDER TEM on 05-01-2022 Hemoglobin Auto test strip Ql (U) Negative Negative [facility] Urine leukocyte esterase det ection by automated test stripOrdered By: PROVIDER TEM on 05-01-2022 Leukocyte esterase Auto test strip Ql (U) 2+ Negative [facility] Urobilinogen Auto test strip (U) [Mass/Vol]Ordered By: PROVIDER TEM on 05-01-2022 Urobilinogen (U) [Mass/Vol] Normal mg/dL Normal [facility] pH Auto test strip (U)Ordere d By: PROVIDER TEM on 05-01-2022 pH (U) 5.5 [pH] 5.0-9.0 [facility] Basophils Auto (Bld) [#/Vol] Ordered By: Quan Neal on 03-11-2022 Basophils (Bld) [#/Vol] 0.0 10*3/uL 0.0-0.2 [facility] Basophils/100 WBC Auto (Bld) Ordered By: Quan Neal on 03-11-2022 Basophils/100 WBC (Bld) 0.9 % [facility] Blood hemoglobin measurement (mass/volume)Ordered By: Quan Neal on 03-11-2022 Hemoglobin (Bld) [Mass/Vol] 15.0 g/dL 13.0-17.0 [facility] Blood leukocytes automated c ount (number/volume)Ordered By: Quan Neal on 03-11-2022 WBC (Bld) [#/Vol] 4.2 10*3/uL 4.5-11.0 [facility] Body fluid albumin measureme nt (mass/volume)Ordered By: Quan Neal on 03-11-2022 Albumin (Body fld) [Mass/Vol] 4.0 g/dL 3.2-5.5 [facility] Creatinine and Glomerular fi ltration rate.predicted panel (S/P/Bld)Ordered By: Quan Neal on 03-11-2022 Creatinine [Mass/Vol] 1.37 mg/dL 0.64-1.27 [facility] Eosinophils Auto (Bld) [#/Vo l]Ordered By: Quan Neal on 03-11-2022 Eosinophils (Bld) [#/Vol] 0.1 10*3/uL 0.0-0.45 [facility] Eosinophils/100 WBC Auto (Bl d)Ordered By: Quan Neal on 03-11-2022 Eosinophils/100 WBC (Bld) 2.0 % [facility] Erythrocyte distribution wid th Auto (RBC) [Ratio]Ordered By: Quan Neal on 03-11-2022 Erythrocyte distribution width (RBC) [Ratio] 14.0 % 12.0-14.8 [facility] Estimated glomerular filtrat ion rate (GFR) non- AmericanOrdered By: Quan Neal on 03-11-2022 GFR/1.73 sq M.predicted among non-blacks MDRD (S/P/Bld) [Vol rate/Area] > 60 mL/Min [facility] Globulin Calc (S) [Mass/Vol] Ordered By: Quan Neal on 03-11-2022 Globulin (S) [Mass/Vol] 2.7 g/dL [facility] Hematocrit Auto (Bld) [Volum e fraction]Ordered By: Quan Neal on 03-11-2022 Hematocrit (Bld) [Volume fraction] 44.3 % 38.8-50.0 [facility] Laboratory - Hematology and Cell countsOrdered By: Quan Neal on 03-11-2022 Nucleated RBC/100 WBC (Bld) [Ratio] 0.1 % 0-0.5 [facility] Lactate dehydrogenase measur ement (enzymatic activity/volume)Ordered By: Quan Neal on 03-11-2022 LDH (Unsp spec) [Catalytic activity/Vol] 175 U/L 45-190 [facility] Lymphocytes Auto (Bld) [#/Vo l]Ordered By: Quan Neal on 03-11-2022 Lymphocytes (Bld) [#/Vol] 1.6 10*3/uL 1.00-4.8 [facility] Lymphocytes/100 WBC Auto (Bl d)Ordered By: Quan Neal on 03-11-2022 Lymphocytes/100 WBC (Bld) 38.0 % [facility] MCH Auto (RBC) [Entitic mass ]Ordered By: Quan Neal on 03-11-2022 MCH (RBC) [Entitic mass] 31.5 pg 27.5-35.2 [facility] MCHC Auto (RBC) [Mass/Vol]Or dered By: Quan Neal on 03-11-2022 MCHC (RBC) [Mass/Vol] 33.8 g/dL 32.5-35.6 [facility] MCV Auto (RBC) [Entitic vol] Ordered By: Quan Neal on 03-11-2022 MCV (RBC) [Entitic vol] 93.2 fL 83.5-101 [facility] Monocytes Auto (Bld) [#/Vol] Ordered By: Quan Neal on 03-11-2022 Monocytes (Bld) [#/Vol] 0.2 10*3/uL 0.0-0.8 [facility] Monocytes/100 WBC Auto (Bld) Ordered By: Quan Neal on 03-11-2022 Monocytes/100 WBC (Bld) 5.1 % [facility] Neutrophils Auto (Bld) [#/Vo l]Ordered By: Quan Neal on 03-11-2022 Neutrophils (Bld) [#/Vol] 2.2 10*3/uL 1.8-7.7 [facility] Neutrophils/100 WBC Auto (Bl d)Ordered By: Quan Neal on 03-11-2022 Neutrophils/100 WBC (Bld) 54.0 % [facility] No Panel InformationOrdered By: Quan Neal on 03-11-2022 Estimated GFR () > 60 mL/Min [facility] Comment on above: GFR estimated refere nce range: According to KDOQI guidelines, <60 ml/min/1.73m2 is sufficient to diagnose a patient with chronic kidney disease. Pharmacy Creatinine Clearance (Chem 109.54 [facility] Platelet mean volume Auto (B ld) [Entitic vol]Ordered By: Quan Neal on 03-11-2022 Platelet mean volume (Bld) [Entitic vol] 9.8 fL 6.6-10.1 [facility] Platelets Auto (Bld) [#/Vol] Ordered By: Quan Neal on 03-11-2022 Platelets (Bld) [#/Vol] 134 10*3/uL 150-450 [facility] Protein [Mass/volume] in Ser um or PlasmaOrdered By: Quan Neal on 03-11-2022 Protein [Mass/Vol] 6.7 g/dL 6.1-7.9 [facility] RBC Auto (Bld) [#/Vol]Ordere d By: Quan Neal on 03-11-2022 RBC (Bld) [#/Vol] 4.76 10*6/uL 3.90-5.[address] [facility] Serum or plasma alanine flores otransferase measurement without P-5'-P (enzymatic activiOrdered By: Quan Neal on 03-11-2022 ALT No additional P-5'-P [Catalytic activity/Vol] 47 U/L 10-60 [facility] Serum or plasma albumin/glob ulin mass ratioOrdered By: Quan Neal on 03-11-2022 Albumin/Globulin [Mass ratio] 1.5 {ratio} [facility] Serum or plasma alkaline rema sphatase measurement (enzymatic activity/volume)Ordered By: Quan Neal on 03-11-2022 ALP [Catalytic activity/Vol] 62 U/L 32-92 [facility] Serum or plasma aspartate am inotransferase measurement (enzymatic activity/volume)Ordered By: Quan Neal on 03-11-2022 AST [Catalytic activity/Vol] 28 U/L 10-42 [facility] Serum or plasma calcium levi urement (mass/volume)Ordered By: Quan Neal on 03-11-2022 Calcium [Mass/Vol] 8.9 mg/dL 8.2-10.2 [facility] Serum or plasma chloride falguni surement (moles/volume)Ordered By: Quan Neal on 03-11-2022 Chloride [Moles/Vol] 103 mmol/L 95-114 [facility] Serum or plasma glucose levi urement (mass/volume)Ordered By: Quan Neal on 03-11-2022 Glucose [Mass/Vol] 114 mg/dL 70-100 [facility] Comment on above: ADA recommended refe [...] on 03-11-2022 Potassium [Moles/Vol] 4.0 mmol/L 3.5-5.1 [facility] Serum or plasma sodium measu rement (moles/volume)Ordered By: Quan Neal on 03-11-2022 Sodium [Moles/Vol] 138 mmol/L 136-146 [facility] Serum or plasma total biliru bin measurement (mass/volume)Ordered By: Quan Neal on 03-11-2022 Bilirubin [Mass/Vol] 0.9 mg/dL 0.3-1.2 [facility] Serum or plasma total carbon dioxide measurement (moles/volume)Ordered By: Quan Neal on 03-11-2022 CO2 [Moles/Vol] 25.0 mmol/L 22.0-30.0 [facility] Serum or plasma urea nitroge n measurement (mass/volume)Ordered By: Quan Neal on 03-11-2022 Urea nitrogen [Mass/Vol] 7 mg/dL 9-23 [facility] HIV 1 RNA viral load measure ment (log number/volume)Ordered By: Ellie Nath on 02-07-2022 HIV 1 RNA GIANLUCA+probe (Unsp spec) [Log #/Vol] See comment [facility] Comment on above: Result Units: log10c opy/mLUnable to calculate result since non-numeric resultobtained for component test.Performed at: [facility] [id number] Director: Jackelin Hahn MD, Phone: [phone] Result Units: log10c opy/mL Unable to calculate result since non-numeric result obtained for component test. Performed at: [facility] [id number] Shipyard Helper: Jackelin Hahn MD, Phone: [phone] HIV 1 RNA viral load measure ment by probe and target amplification method (number/volOrdered By: Ellie Nath on 02-07-2022 HIV 1 RNA GIANLUCA+probe (Unsp spec) [#/Vol] <20 copies/mL [facility] Comment on above: HIV-1 RNA not detect [...] p24 Ag IA Ql Non-Reactive Non Reactive [facility] Comment on above: HIV NegativeHIV-1/HI V-2 antibodies and HIV-1 p24 antigen were NOTdetected. There is no laboratory evidence of HIV infection.Performed at: [facility] [id number] Director: Josh Carvalho PhD, Phone: [phone] HIV Negative HIV-1/HIV-2 antibodies and HIV-1 p24 antigen were NOT detected. There is no laboratory evidence of HIV infection. Performed at: [facility] [id number] Shipyard Helper: Josh Carvalho PhD, Phone: [phone] No Panel InformationOrdered By: Ellie Nath on 02-07-2022 RPR Quantitative Confirmation 1:2 NonRea<1:1 [facility] Reagin Ab [Presence] in Seru m by RPROrdered By: Ellie Nath on 02-07-2022 Reagin Ab RPR Ql (S) Reactive Non Reactive [facility] Serum Treponema pallidum ant ibody detection by immunofluorescenceOrdered By: Ellie Nath on 02-07-2022 T. pallidum Ab IF Ql (S) Reactive Non Reactive [facility] Comment on above: Performed at: [facility] [address] [id number] Director: Josh Carvalho PhD, Phone: [phone] Performed at: [facility] [address] [id number] Shipyard Helper: Johs Carvalho PhD, Phone: [phone] Treponema pallidum IgG+IgM A b [Presence] in Serum by ImmunoassayOrdered By: Ellie Nath on 02-07-2022 T. pallidum IgG+IgM IA Ql (S) Reactive Non Reactive [facility] Laboratory - CoagulationOrde red By: Silvio Tovar on 11-21-2021 PT Coag (PPP) [Time] 12.5 s 9.0-12.9 [facility] Platelet poor plasma interna tional normalized ratio (INR) by coagulation assay (relatOrdered By: Silvio Tovar on 11-21-2021 INR Coag (PPP) [Relative time] 1.1 {INR} [facility] Comment on above: INR Therapeutic Rang e [...] 11-21-2021 Platelets (Bld) [#/Vol] 131 10*3/uL 150-450 [facility] COVID-19 SOFIAOrdered By: Namrata Singleton on 11-13-2021 SARS-CoV+SARS-CoV-2 (COVID-19) Ag IA.rapid Ql (Resp) Positive Negative [facility] Comment on above: This is a duplicate Mirela SARS Antigen (MICHAEL) result to be used for statistical tracking purpose only. No Panel InformationOrdered By: Sabiha Singleton on 11-13-2021 SARS Antigen (LFIA) [facility] Vital Signs Date Time Vital Sign Value Performing Clinician Facility 02-20-2024 16:54-0400 Body temperature 98.06 [degF] Travis Valentine [facility] 02-20-2024 16:54-0400 Diastolic blood pressure 101 mm[Hg] Travis Valentine [facility] 02-20-2024 16:54-0400 Heart rate 79 /min Travis Valentine [facility] 02-20-2024 16:54-0400 Respiratory rate 20 /min Travis Valentine [facility] 02-20-2024 16:54-0400 SaO2% (BldA) [Mass fraction] 99 % Travis Valentine [facility] 02-20-2024 16:54-0400 Systolic blood pressure 152 mm[Hg] Travis Valentine [facility] 12-01-2023 12:20-0500 Body height 182.88 cm PHYSICIAN BRITNI [facility] 12-01-2023 12:20-0500 Body temperature 97.9 [degF] PHYSICIAN NO [facility] 12-01-2023 12:20-0500 Body weight 114.05 kg PHYSICIAN NO [facility] 12-01-2023 12:20-0500 Diastolic blood pressure 93 mm[Hg] PHYSICIAN NO [facility] 12-01-2023 12:20-0500 Heart rate 82 /min PHYSICIAN NO [facility] 12-01-2023 12:20-0500 Respiratory rate 16 /min PHYSICIAN NO [facility] 12-01-2023 12:20-0500 SaO2% (BldA) [Mass fraction] 98 % PHYSICIAN NO [facility] 12-01-2023 12:20-0500 Systolic blood pressure 144 mm[Hg] PHYSICIAN NO [facility] 06-26-2023 10:04-0400 Body temperature 98.3 [degF] PHYSICIAN NO [facility] 06-26-2023 10:04-0400 Diastolic blood pressure 91 mm[Hg] PHYSICIAN NO [facility] 06-26-2023 10:04-0400 Heart rate 85 /min PHYSICIAN NO [facility] 06-26-2023 10:04-0400 Respiratory rate 18 /min PHYSICIAN NO [facility] 06-26-2023 10:04-0400 SaO2% (BldA) [Mass fraction] 96 % PHYSICIAN NO [facility] 06-26-2023 10:04-0400 Systolic blood pressure 137 mm[Hg] PHYSICIAN NO [facility] 06-26-2023 08:08-0400 Body height 182.88 cm PHYSICIAN NO [facility] 06-26-2023 08:08-0400 Body weight 117.15 kg PHYSICIAN NO [facility] 05-14-2023 23:36-0400 Diastolic blood pressure 92 mm[Hg] PHYSICIAN NO [facility] 05-14-2023 23:36-0400 Systolic blood pressure 151 mm[Hg] PHYSICIAN NO [facility] 05-14-2023 23:31-0400 Body height 182.88 cm PHYSICIAN NO [facility] 05-14-2023 23:31-0400 Body temperature 98.4 [degF] PHYSICIAN NO [facility] 05-14-2023 23:31-0400 Body weight 115.66 kg PHYSICIAN NO [facility] 05-14-2023 23:31-0400 Heart rate 94 /min PHYSICIAN NO [facility] 05-14-2023 23:31-0400 Respiratory rate 18 /min PHYSICIAN NO [facility] 05-14-2023 23:31-0400 SaO2% (BldA) [Mass fraction] 98 % PHYSICIAN NO [facility] 04-14-2023 00:44-0400 Body height 182.88 cm PHYSICIAN NO [facility] 04-14-2023 00:44-0400 Body temperature 98 [degF] PHYSICIAN NO [facility] 04-14-2023 00:44-0400 Body weight 111.13 kg PHYSICIAN NO [facility] 04-14-2023 00:44-0400 Diastolic blood pressure 120 mm[Hg] PHYSICIAN NO [facility] 04-14-2023 00:44-0400 Heart rate 114 /min PHYSICIAN NO [facility] 04-14-2023 00:44-0400 Respiratory rate 22 /min PHYSICIAN NO [facility] 04-14-2023 00:44-0400 SaO2% (BldA) [Mass fraction] 98 % PHYSICIAN NO [facility] 04-14-2023 00:44-0400 Systolic blood pressure 177 mm[Hg] PHYSICIAN NO [facility] 01-28-2023 23:27-0400 Diastolic blood pressure 87 mm[Hg] PHYSICIAN NO [facility] 01-28-2023 23:27-0400 Heart rate 98 /min PHYSICIAN NO [facility] 01-28-2023 23:27-0400 Respiratory rate 20 /min PHYSICIAN NO [facility] 01-28-2023 23:27-0400 SaO2% (BldA) [Mass fraction] 98 % PHYSICIAN NO [facility] 01-28-2023 23:27-0400 Systolic blood pressure 189 mm[Hg] PHYSICIAN NO [facility] 01-28-2023 23:26-0400 Body height 182.88 cm PHYSICIAN NO [facility] 01-28-2023 23:26-0400 Body weight 115.66 kg PHYSICIAN NO [facility] 08-08-2022 12:37-0400 Body temperature 98.4 [degF] Provider [facility] 08-08-2022 12:33-0400 Body height 182.88 cm Provider [facility] 08-08-2022 12:33-0400 Body weight 106.59 kg Provider [facility] 08-08-2022 12:33-0400 Diastolic blood pressure 86 mm[Hg] Provider [facility] 08-08-2022 12:33-0400 Heart rate 94 /min Provider [facility] 08-08-2022 12:33-0400 Respiratory rate 20 /min Provider [facility] 08-08-2022 12:33-0400 SaO2% (BldA) [Mass fraction] 100 % Provider [facility] 08-08-2022 12:33-0400 Systolic blood pressure 151 mm[Hg] Provider [facility] 05-08-2022 00:01-0400 Diastolic blood pressure 93 mm[Hg] PHYSICIAN NO [facility] 05-08-2022 00:01-0400 Heart rate 77 /min PHYSICIAN NO [facility] 05-08-2022 00:01-0400 Respiratory rate 20 /min PHYSICIAN NO [facility] 05-08-2022 00:01-0400 SaO2% (BldA) [Mass fraction] 97 % PHYSICIAN NO [facility] 05-08-2022 00:01-0400 Systolic blood pressure 143 mm[Hg] PHYSICIAN NO [facility] 05-07-2022 22:12-0400 Body height 182.88 cm PHYSICIAN NO [facility] 05-07-2022 22:12-0400 Body mass index (BMI) [Ratio] 35.8 kg/m2 PHYSICIAN NO [facility] 05-07-2022 22:12-0400 Body temperature 98.2 [degF] PHYSICIAN NO [facility] 05-07-2022 22:12-0400 Body weight 119.74 kg PHYSICIAN NO [facility] 05-01-2022 12:37-0400 Body height 182.88 cm PHYSICIAN NO [facility] 05-01-2022 12:37-0400 Body mass index (BMI) [Ratio] 36 kg/m2 PHYSICIAN NO [facility] 05-01-2022 12:37-0400 Body temperature 98.7 [degF] PHYSICIAN NO [facility] 05-01-2022 12:37-0400 Body weight 120.45 kg PHYSICIAN NO [facility] 05-01-2022 12:37-0400 Diastolic blood pressure 94 mm[Hg] PHYSICIAN NO [facility] 05-01-2022 12:37-0400 Heart rate 73 /min PHYSICIAN NO [facility] 05-01-2022 12:37-0400 Respiratory rate 20 /min PHYSICIAN NO [facility] 05-01-2022 12:37-0400 SaO2% (BldA) [Mass fraction] 99 % PHYSICIAN NO [facility] 05-01-2022 12:37-0400 Systolic blood pressure 146 mm[Hg] PHYSICIAN NO [facility] 03-12-2022 14:29-0400 Body temperature 97.9 [degF] PHYSICIAN NO [facility] 03-12-2022 14:29-0400 Body weight 122.01 kg PHYSICIAN NO [facility] 03-12-2022 14:29-0400 Diastolic blood pressure 89 mm[Hg] PHYSICIAN NO [facility] 03-12-2022 14:29-0400 Heart rate 79 /min PHYSICIAN NO [facility] 03-12-2022 14:29-0400 Respiratory rate 16 /min PHYSICIAN NO [facility] 03-12-2022 14:29-0400 SaO2% (BldA) [Mass fraction] 96 % PHYSICIAN NO [facility] 03-12-2022 14:29-0400 Systolic blood pressure 136 mm[Hg] PHYSICIAN NO [facility] 02-07-2022 14:58-0400 Body height 182.88 cm [facility] Work Phone: [facility] 02-07-2022 14:58-0400 Body mass index (BMI) [Ratio] 34.5 kg/m2 [facility] Work Phone: [facility] 02-07-2022 14:58-0400 Body temperature 98.8 [degF] [facility] Work Phone: [facility] 02-07-2022 14:58-0400 Body weight 115.66 kg [facility] Work Phone: [facility] 02-07-2022 14:58-0400 Diastolic blood pressure 99 mm[Hg] [facility] Work Phone: [facility] 02-07-2022 14:58-0400 Heart rate 82 /min [facility] Work Phone: [facility] 02-07-2022 14:58-0400 Respiratory rate 20 /min [facility] Work Phone: [facility] 02-07-2022 14:58-0400 SaO2% (BldA) [Mass fraction] 97 % [facility] Work Phone: [facility] 02-07-2022 14:58-0400 Systolic blood pressure 143 mm[Hg] [facility] Work Phone: [facility] 12-10-2021 15:19-0500 Body temperature 98 [degF] [facility] Work Phone: [facility] 12-10-2021 15:19-0500 Body weight 122.65 kg [facility] Work Phone: [facility] 12-10-2021 15:19-0500 Diastolic blood pressure 84 mm[Hg] [facility] Work Phone: [facility] 12-10-2021 15:19-0500 Heart rate 112 /min [facility] Work Phone: [facility] 12-10-2021 15:19-0500 Respiratory rate 20 /min [facility] Work Phone: [facility] 12-10-2021 15:19-0500 SaO2% (BldA) [Mass fraction] 97 % [facility] Work Phone: [facility] 12-10-2021 15:19-0500 Systolic blood pressure 149 mm[Hg] [facility] Work Phone: [facility] 12-10-2021 15:07-0500 Body height 182.88 cm [facility] Work Phone: [facility] 11-21-2021 11:59-0500 Diastolic blood pressure 86 mm[Hg] [facility] Work Phone: [facility] 11-21-2021 11:59-0500 Heart rate 74 /min [facility] Work Phone: [facility] 11-21-2021 11:59-0500 Respiratory rate 16 /min [facility] Work Phone: [facility] 11-21-2021 11:59-0500 SaO2% (BldA) [Mass fraction] 99 % [facility] Work Phone: [facility] 11-21-2021 11:59-0500 Systolic blood pressure 139 mm[Hg] [facility] Work Phone: [facility] 11-21-2021 10:55-0500 Body height 182.88 cm [facility] Work Phone: [facility] 11-21-2021 10:55-0500 Body mass index (BMI) [Ratio] 33.9 kg/m2 [facility] Work Phone: [facility] 11-21-2021 10:55-0500 Body weight 113.39 kg Services [facility] Work Phone: [facility] 11-13-2021 16:25-0500 Body height 182.88 cm Services [facility] Work Phone: [facility] 11-13-2021 16:25-0500 Body mass index (BMI) [Ratio] 33.9 kg/m2 Services [facility] Work Phone: [facility] 11-13-2021 16:25-0500 Body temperature 98.9 [degF] Services [facility] Work Phone: [facility] 11-13-2021 16:25-0500 Body weight 113.39 kg Services [facility] Work Phone: [facility] 11-13-2021 16:25-0500 Diastolic blood pressure 84 mm[Hg] Services [facility] Work Phone: [facility] 11-13-2021 16:25-0500 Heart rate 96 /min Services [facility] Work Phone: [facility] 11-13-2021 16:25-0500 Respiratory rate 18 /min Services [facility] Work Phone: [facility] 11-13-2021 16:25-0500 SaO2% (BldA) [Mass fraction] 98 % Services [facility] Work Phone: [facility] 11-13-2021 16:25-0500 Systolic blood pressure 163 mm[Hg] Services [facility] Work Phone: [facility] Encounters Encounter Date Encounter Type Care Provider Facility Start: 04-07-2024 End: 04-07-2024 ambulatory WALT ARREOLA Not Available Start: 02-20-2024 End: 02-20-2024 Emergency department patient visit Travis Valentine Facility:[facility] Start: 02-20-2024 End: 02-20-2024 Emergency department patient visit Travis Valentine [facility] Start: 12-01-2023 End: 12-01-2023 Emergency department patient visit PHYSICIAN NO [facility] Work Phone: Start: 06-26-2023 End: 06-26-2023 Emergency department patient visit PHYSICIAN NO [facility] Work Phone: Start: 05-14-2023 End: 05-14-2023 Emergency department patient visit PHYSICIAN NO [facility] Work Phone: Start: 04-14-2023 End: 04-14-2023 Emergency department patient visit PHYSICIAN NO [facility] Work Phone: Start: 01-28-2023 End: 01-29-2023 Emergency department patient visit PHYSICIAN NO [facility] Work Phone: Start: 08-08-2022 End: 08-08-2022 [facility] Start: 07-05-2022 End: 07-05-2022 Emergency department patient visit PHYSICIAN NO [facility] Start: 05-07-2022 End: 05-08-2022 Emergency department patient visit PHYSICIAN NO [facility] Start: 05-01-2022 End: 05-01-2022 Emergency department patient visit PHYSICIAN NO [facility] Start: 03-12-2022 End: 03-12-2022 Registered Recurring PHYSICIAN NO [facility] Start: 02-07-2022 End: 02-07-2022 Emergency department [facility] visit [facility] Work Phone: [facility] Start: 12-10-2021 Registered Recurring Services [facility] Work Phone: [facility] Start: 11-21-2021 End: 11-21-2021 Admission to same day surgery center Services [facility] Work Phone: [facility] [place] Start: 11-13-2021 End: 11-13-2021 Emergency department patient visit Services [facility] Work Phone: [facility] Procedures Date Procedure Procedure Detail Performing Clinician Start: 06-26-2023 SARS-CoV-2, Influenz a & RSV (PCR) PHYSICIAN NO FAMILY Start: 06-26-2023 Plain chest X-ray PHYSI MARIBETH NO FAMILY Start: 05-01-2022 Urine culture PHYSICIAN NO FAMILY Start: 05-01-2022 Plain X-ray of right shoulder PHYSICIAN NO FAMILY Start: 11-21-2021 US bx lymph node Servic es [facility] Work Phone: Start: 11-13-2021 SARS Antigen (LFIA) Ser vices [facility] Work Phone: Urine culture PHYSICIAN NO F AMILY Urine culture PHYSICIAN NO F AMILY Plan of Treatment Date Care Activity Detail Author Start: 12-01-2023 [facility] Start: 05-08-2022 Bacteria identified in Urine by Culture Urine Culture [facility] Bacteria identified in Urine by Culture [facility] Work Phone: Chlamydia trachomati s DNA [Presence] in Unspecified specimen by GIANLUCA with probe detection [facility] HIV 1 RNA [#/volume] (viral load) in Unspecified specimen by GIANLUCA with probe detection [facility] Work Phone: HIV 1 RNA [Log #/vol ume] (viral load) in Unspecified specimen by GIANLUCA with probe detection [facility] Work Phone: HIV 1+2 Ab+HIV1 p24 Ag [Presence] in Serum or Plasma by Immunoassay [facility] Work Phone: Neisseria gonorrhoea e DNA [Presence] in Unspecified specimen by GIANLUCA with probe detection [facility] Patient Education [facility] Work Phone: Patient referral [facility] Work Phone: Reagin Ab [Presence] in Serum by RPR [facility] Work Phone: Treponema pallidum A b [Presence] in Serum by Immunofluorescence [facility] Work Phone: Trichomonas vaginali s DNA [Presence] in Unspecified specimen by GIANLUCA with probe detection [facility] Payers Date Payer Category Payer Medicaid [id number] 2023 Self-pay [id number] 1995 Unknown [id number] Medicaid [id number] Private Health Insurance [id number] Unknown Insurance No Card [id number] Unknown [id number] Unknown [id number] Worker's Compensation Industrial Self Ins Misc [id number] Social History Date Type Detail Facility Start: 02-07-2022 End: 06-26-2023 Tobacco smoking status NEIS Smoker (finding) [facility] Start: 1995 Sex Assigned At Male [facility] Start: 03-12-2022 End: 12-01-2023 Tobacco smoking status NHIS Ex-smoker (finding) [facility] Start: 09-11-2017 Tobacco smoking status Smokes tobacco daily (finding) [facility] Comment on above: 2 black and milds da mary, 1-2 cigarettes weekly Sex Assigned At Male [facility] Functional Status Date Assessment Result Facility 02-20-2024 Functional Status N/A [facility] Clinical Notes 12-01-2023 to 02-20-2024 Note [...] pull them backward. Do not sit or flour inspector one place for long periods of time. [...] prescription pain medicine, or muscle relaxants. Take hkdc-rfl-ourgicg and prescription medicines only as told by your health care provider. Ask your health care provider if the medicine prescribed to you: ?Requires you to avoid driving or using machinery. ?Can cause constipation. You may need to take these actions to prevent or treat constipation: ?Drink enough fluid to keep your urine pale yellow. ?Take oese-fmo-jnohfxa or prescription medicines. ?Eat foods that are [...] provider. Document Revised: 12/06/2020 Document Reviewed: 12/06/2020 [employer] Patient Education 2022 Footnote. Follow Up Care 02/20/2024 16:48:14 With:Silvio CORRALES Address: [address] [place], [place] [id number] Business (1) When:02/23/2024 17:27:[address] [facility] 02-20-2024 Evaluation + Plan note Extrac brayden from: Title:ED Note Author:Alex CUELLAR, Shaheed cJ te:02/20/24 Back pain (M54.9: Dorsalgia, unspecified) Orders: albuterol, 2 puff(s), Inhalation, q6hr Wheezing, 8.5 gm, Refill(s) 0, [facility]/pharmacy #[id number], 183, cm, 02/20/24 16:57:00 EDT, Height/Length Dosing, 119.3, kg, 02/20/24 16:57:00 EDT, Weight Dosing predniSONE, 60 mg = 3 tab(s), Oral, Daily, X 7 day(s), # 21 tab(s), Refills(s) 0, Pharmacy: [facility]/pharmacy #[id number], 183, cm, 02/20/24 16:57:00 EDT, Height/Length Dosing, 119.3, kg, 02/20/24 16:57:00 EDT, Weight Dosing [facility]01-22-2024 Hospital Discharge instructions Additional Instructions Take the antibiotic doxycycline twice a day for 7 days take with food No sexual activity for 2 weeks Always use a condom We usually call you with results but if you do not receive a phone call after 3 to 4 days and would like to know the results call [phone] [facility]* Diagnosis Onset Date Resolution Status Lymphadenopathy acute [facility] Work Phone: Evaluation noteNo assessment information available [facility] Work Phone: Hospital course Narrative No data available for this section [facility] Work Phone: Hospital Discharge instructions Additional Instructions Follow-up with primary care doctor Return to the ED if develop worsening symptoms or concerns Take the antibiotics as prescribed Take Tylenol or Motrin as needed for shoulder pain use ice pack on your shoulder [facility] Work Phone: Hospital Discharge instructions Additional Instructions Continue with bacitracin youy-rmm-dcwcocd Return for new or worsening [facility] a [facility] Work Phone: Hospital Discharge instructions Additional Instructions Follow-up with dentist as soon as possible[facility] Work Phone: Hospital Discharge instructions Additional Instructions If your symptoms return/worsen or you develop any further concerns or symptoms please see your doctor or return to the emergency department immediately.[facility] Work Phone: Progress note No data available for this section [facility] Chief Complaint and Reason for Visit Chief [...] Member Role Status Dates Quan Neal II, DO Attending Provider Active Services Family Health Primary Care Provider Active Team Status: Inactive Member Role Status Dates PHYSICIAN NO FAMILY Primary Care Provider Active Ellie Nath PA-C Emergency Provider Active Team Status: Inactive Member Role Status Dates Services Family Health Primary Care Provider Active Sabiha Singleton SENIOR ADVISOR-BC Emergency Provider Active Team Status: Inactive Member [...] December 01, 2023 End: December 01, 2023 Sabiha Singleton SENIOR ADVISOR-BC Emergency Provider Active Start: December 01, 2023 [...] section and content) DATE CREATED AUTHOR 03/03/2024 [facility] DATE CREATED AUTHOR AUTHOR'S ORGANIZ ATION 04/09/2024 [facility] DATE CREATED AUTHOR AUTHOR'S ORGANIZ ATION 06/22/2024 [facility] FOR RECORDS PERTAINING TO PATIENTS WHO ARE [...] BE BASED ON THE PRIMARY CLINICAL RECORDS. [facility]. provides no warranty or guarantee of the accuracy or completeness of information in this document.
[2024-08-26] MEDS: CEFTRIAXONE 500 MG, LIDOCAINE HCL/PF 1 ML IM (12:03)
[2024-08-29 07:07] LABS: Neisseria gonorrhoeae, NAA Negative (Negative)
== END 2024-08-26 12:07 | disposition home or self-care (01) ==
PROVIDERS: Emergency Provider Emergency Medicine; PCP Nurse Practitioner Family
DX: N34.2 Other urethritis (principal); F17.200 Nicotine dependence, unspecified, uncomplicated
CPT/HCPCS: 87491; 87591; 99283; J0696